=== PATIENT | female | born 1990 | race Caucasian/White ===

== ENCOUNTER 2018-08-24 08:10 | Inpatient (IN) ==
[2018-08-24] MEDS ORDERED: ONDANSETRON 4 MG/2 ML VIAL IV STA (08:57)
[2018-08-24] MEDS ORDERED: SODIUM CHLORIDE 0.9% 1,000 ML IV STA (08:57)
[2018-08-24] MEDS ORDERED: ONDANSETRON 4 MG/2 ML VIAL ONE (09:01)
[2018-08-24 09:23] LABS: Basophils % 0.4 % (0.0-0.8); Hematocrit 28.1 VOL% (35.7-47.0); Hemoglobin 9.2 GM/DL (12.0-16.0); Immature Granulocytes % 1.2 %; Immature Granulocytes Absolute 0.11 #; Lymphocytes # 1.8 10*3/uL (1.4-4.0); Lymphocytes % 19.6 % (21.3-54.2); Mean Corpuscular HGB Conc 32.7 GM/DL (32-36); Mean Corpuscular Volume 82.6 FL (87-102); Mean Platelet Volume 10.9 FL (9.6-12.0); Monocytes % 10.5 % (1.7-12.7); Neutrophils % 68.3 % (38.7-73.9); Platelet Count 250 T/CUMM (130-400); Red Cell Distribution Width 13.1 % (9.3-17.3); White Blood Count 9.1 T/CUMM (4-12)
[2018-08-24 09:42] LABS: Albumin 2.7 G/DL (3.4-5.0); Bilirubin,Total 0.8 MG/DL (0.2-1.0); Calcium 8.5 MG/DL (8.5-10.1); Osmolality,Calculated 296.5 MOS/KG (273-304); Total Protein 6.7 G/DL (6.4-8.3)
[2018-08-24 09:54] LABS: Apearance,Urine Slightly Cloudy (Clear); Urine Color Yellow (Yellow)
[2018-08-24 09:55] LABS: Bilirubin,Urine Negative (Negative); Blood, Urine Trace mg/dL (Negative); Glucose,Urine (UA) 4+ mg/dL (Negative); Ketones,Urine 3+ mg/dL (Negative); Nitrite,Urine Negative (Negative); Protein,Urine 3+ MG/DL; RBC,Urine Rare /HPF (0-4); Urine Urobilinogen < 2.0 EU/DL (0.2-1.0)
[2018-08-24 09:56] LABS: Bacteria,Urine Many /HPF (Few); Squamous Epithelial Cell,Urine Many /HPF (0-10); WBC,Urine TNTC /HPF (0-6)
[2018-08-24] MEDS ORDERED: AMPICILLIN/SULBACTAM 3,000 MG in SODIUM CHLORIDE 0.9% 100 ML IV STA (10:25)
[2018-08-24] MEDS ORDERED: SODIUM CHLORIDE 0.9% 100 ML IV ONE (10:32)
[2018-08-24] MEDS ORDERED: AMPICILLIN/SULBACTAM 3,000 MG VIAL ONE (10:32)
[2018-08-24] MEDS ORDERED: INSULIN LISPRO 100 UNIT/ML ONE (10:53)
[2018-08-24 11:03] LABS: Barbiturates Screen,Urine Negative (Negative); Benzodiazepines Screen,Urine Negative (Negative); Cannabinoid Screen,Urine Positive (Negative); Opiate Screen,Urine Negative (Negative); Phencyclidine Screen,Urine Negative (Negative)
[2018-08-24] MEDS: SODIUM CHLORIDE 0.9% 1,000 ML IV SCH ×3 (12:05→21:54)
[2018-08-24] MEDS: INSULIN LISPRO 100 UNIT/ML SUBCUT SCH ×5 (14:48→22:56)
[2018-08-24] MEDS ORDERED: ACETAMINOPHEN 500 MG TABLET ONE (14:59)
[2018-08-24] MEDS: ONDANSETRON 4 MG/2 ML VIAL IV PRN (15:09)
[2018-08-24] MEDS: ACETAMINOPHEN 500 MG TABLET PO PRN ×2 (15:10→21:52)
[2018-08-24] MEDS ORDERED: DEXTROSE 50% 25 GM/50 ML VIAL IV PRN (16:27)
[2018-08-24] MEDS ORDERED: PROMETHAZINE 25 MG/1 ML VIAL IM PRN (16:40)
[2018-08-24] MEDS: AMPICILLIN/SULBACTAM 3,000 MG in SODIUM CHLORIDE 0.9% 100 ML IV SCH (18:58)
[2018-08-24] MEDS: ONDANSETRON 4 MG/2 ML VIAL IV SCH (20:30)
[2018-08-25] MEDS: ONDANSETRON 4 MG/2 ML VIAL IV SCH ×4 (00:16→23:44)
[2018-08-25] MEDS: INSULIN LISPRO 100 UNIT/ML SUBCUT SCH ×9 (00:47→23:52)
[2018-08-25] MEDS: AMPICILLIN/SULBACTAM 3,000 MG in SODIUM CHLORIDE 0.9% 100 ML IV SCH ×3 (01:58→18:47)
[2018-08-25 06:06] LABS: Basophils % 0.5 % (0.0-0.8); Eosinophils # 0.1 10*3/uL (0.0-0.87); Eosinophils % 1.7 % (0.00-10.9); Hematocrit 24.3 VOL% (35.7-47.0); Hemoglobin 7.7 GM/DL (12.0-16.0); Immature Granulocytes % 0.8 %; Immature Granulocytes Absolute 0.06 #; Lymphocytes # 2.6 10*3/uL (1.4-4.0); Mean Corpuscular HGB Conc 31.7 GM/DL (32-36); Mean Corpuscular Volume 85.3 FL (87-102); Mean Platelet Volume 11.1 FL (9.6-12.0); Monocytes % 11.1 % (1.7-12.7); Neutrophils % 52.9 % (38.7-73.9); Red Blood Count 2.85 MC/CUMM (3.8-5.5); Red Cell Distribution Width 13.6 % (9.3-17.3); White Blood Count 7.8 T/CUMM (4-12)
[2018-08-25 06:09] LABS: Platelet Count 186 T/CUMM (130-400)
[2018-08-25 06:15] LABS: Calcium 7.4 MG/DL (8.5-10.1); Osmolality,Calculated 292.4 MOS/KG (273-304)
[2018-08-25] MEDS: SODIUM CHLORIDE 0.9% 1,000 ML IV SCH ×2 (08:47→18:00)
[2018-08-25] MEDS: ONDANSETRON 4 MG/2 ML VIAL IV PRN (12:29)
[2018-08-25] MEDS: LABETALOL 200 MG TABLET PO SCH (20:55)
[2018-08-26] MEDS: ACETAMINOPHEN 500 MG TABLET PO PRN (00:23)
[2018-08-26] MEDS: AMPICILLIN/SULBACTAM 3,000 MG in SODIUM CHLORIDE 0.9% 100 ML IV SCH (03:38)
[2018-08-26] MEDS: ONDANSETRON 4 MG/2 ML VIAL IV SCH ×2 (03:47→08:08)
[2018-08-26] MEDS: INSULIN LISPRO 100 UNIT/ML SUBCUT SCH ×2 (03:49→07:26)
[2018-08-26] MEDS: SODIUM CHLORIDE 0.9% 1,000 ML IV SCH (06:00)
[2018-08-26 08:15] VITALS: BP 145/88
[2018-08-26] MEDS: LABETALOL 200 MG TABLET PO SCH (08:57)
== END 2018-08-26 12:50 | disposition home or self-care (01) | DRG 832 ==
LOC: EDBD → EDUNIT# → N.ED 08:10 → N.EDINP 10:25 → N.OB 10:59
PROVIDERS: ADMIT Obstetrics & Gynecology; ATTEND Obstetrics & Gynecology

== ENCOUNTER 2018-11-03 10:39 | Inpatient (IN) ==
[2018-11-03] MEDS ORDERED: ONDANSETRON 4 MG/2 ML VIAL IV STA (11:16)
[2018-11-03] MEDS ORDERED: SODIUM CHLORIDE 0.9% 1,000 ML IV STA (11:16)
[2018-11-03 11:44] LABS: Basophils # 0.1 10*3/uL (0.0-0.2); Basophils % 0.9 % (0.0-0.8); Eosinophils % 0.3 % (0.00-10.9); Hematocrit 26.9 VOL% (35.7-47.0); Hemoglobin 8.6 GM/DL (12.0-16.0); Immature Granulocytes % 1.2 %; Immature Granulocytes Absolute 0.09 #; Lymphocytes # 1.3 10*3/uL (1.4-4.0); Lymphocytes % 16.6 % (21.3-54.2); Mean Corpuscular Volume 87.3 FL (87-102); Monocytes % 7.5 % (1.7-12.7); Neutrophils % 73.5 % (38.7-73.9); Platelet Count 226 T/CUMM (130-400); Red Blood Count 3.08 MC/CUMM (3.8-5.5); Red Cell Distribution Width 13.6 % (9.3-17.3); White Blood Count 7.8 T/CUMM (4-12)
[2018-11-03 12:02] LABS: Calcium 8.1 MG/DL (8.5-10.1); Osmolality,Calculated 287.7 MOS/KG (273-304)
[2018-11-03] MEDS ORDERED: INSULIN REGULAR 100 UNIT/ML IV ONE (12:03)
[2018-11-03] MEDS ORDERED: MAGNESIUM HYDROXIDE SUSP 30 ML UDCUP PO PRN (12:05)
[2018-11-03] MEDS ORDERED: ACETAMINOPHEN 325 MG TABLET PO PRN (12:05)
[2018-11-03] MEDS ORDERED: BISACODYL 10 MG SUPP RECTAL PRN (12:05)
[2018-11-03 13:43] LABS: Apearance,Urine Slightly Hazy (Clear); Bilirubin,Urine Negative (Negative); Blood, Urine Small mg/dL (Negative); Glucose,Urine (UA) >=500 mg/dL (Negative); Ketones,Urine 20 mg/dL (Negative); Mucus,Urine Occasional /LPF (Occasional); Nitrite,Urine Negative (Negative); Protein,Urine >=500 MG/DL; RBC,Urine 11 /HPF (0-4); Squamous Epithelial Cell,Urine Occasional /HPF (0-10); Urine Color Yellow (Yellow); Urine Specific Gravity 1.018 (1.001-1.035); Urine Urobilinogen < 2.0 EU/DL (0.2-1.0); WBC,Urine 6 /HPF (0-6)
[2018-11-03] MEDS ORDERED: GLUCAGON 1 MG VIAL IM PRN (14:01)
[2018-11-03] MEDS ORDERED: DEXTROSE 10% 250 ML BAG IV PRN (14:01)
[2018-11-03] MEDS ORDERED: DEXTROSE 50% 25 GM/50 ML VIAL IV PRN (14:07)
[2018-11-03 15:06] LABS: Calcium 8.1 MG/DL (8.5-10.1); Osmolality,Calculated 291.3 MOS/KG (273-304)
[2018-11-03] MEDS ORDERED: ALUMINUM/MAGNES/SIMETH MAX STR 30 ML UDCUP PO PRN (15:08)
[2018-11-03] MEDS: LABETALOL 200 MG TABLET PO SCH ×2 (15:44→21:14)
[2018-11-03] MEDS: PANTOPRAZOLE 40 MG TABLET PO SCH (15:44)
[2018-11-03 16:45] LABS: Barbiturates Screen,Urine Negative (Negative); Benzodiazepines Screen,Urine Negative (Negative); Cannabinoid Screen,Urine Negative (Negative); Opiate Screen,Urine Negative (Negative); Phencyclidine Screen,Urine Negative (Negative)
[2018-11-03] MEDS ORDERED: SCOPOLAMINE 1.5 MG PATCH TRANSDERM ONE (17:20)
[2018-11-03] MEDS: SODIUM CHLORIDE 0.9% 1,000 ML IV SCH (17:30)
[2018-11-03] MEDS: PROMETHAZINE 25 MG/1 ML VIAL IM SCH (18:07)
[2018-11-03] MEDS: INSULIN LISPRO 100 UNIT/ML SUBCUT SCH ×3 (18:41→21:13)
[2018-11-03 19:16] LABS: Osmolality,Calculated 296.7 MOS/KG (273-304)
[2018-11-03] MEDS: INSULIN GLARGINE 100 UNIT/ML SUBCUT SCH (21:12)
[2018-11-03] MEDS: DOCUSATE SODIUM 100 MG CAPSULE PO SCH (21:39)
[2018-11-04] MEDS: PROMETHAZINE 25 MG/1 ML VIAL IM SCH ×4 (00:25→17:30)
[2018-11-04] MEDS: SODIUM CHLORIDE 0.9% 1,000 ML IV SCH ×2 (01:12→09:35)
[2018-11-04 05:02] LABS: Basophils % 0.4 % (0.0-0.8); Eosinophils # 0.1 10*3/uL (0.0-0.87); Eosinophils % 0.9 % (0.00-10.9); Hematocrit 19.2 VOL% (35.7-47.0); Immature Granulocytes Absolute 0.07 #; Lymphocytes # 2.2 10*3/uL (1.4-4.0); Lymphocytes % 31.8 % (21.3-54.2); Mean Corpuscular HGB Conc 31.8 GM/DL (32-36); Mean Corpuscular Volume 88.9 FL (87-102); Mean Platelet Volume 10.5 FL (9.6-12.0); Monocytes % 12.7 % (1.7-12.7); Neutrophils % 53.2 % (38.7-73.9); Platelet Count 174 T/CUMM (130-400); Red Blood Count 2.16 MC/CUMM (3.8-5.5); Red Cell Distribution Width 13.5 % (9.3-17.3); White Blood Count 6.8 T/CUMM (4-12)
[2018-11-04 05:06] LABS: Hemoglobin 6.1 GM/DL (12.0-16.0)
[2018-11-04 05:28] LABS: Osmolality,Calculated 288.8 MOS/KG (273-304)
[2018-11-04] MEDS: INSULIN LISPRO 100 UNIT/ML SUBCUT SCH ×5 (07:30→21:28)
[2018-11-04] MEDS: MULTIVITAMIN (PRENATAL) TABLET PO SCH (09:06)
[2018-11-04] MEDS: DOCUSATE SODIUM 100 MG CAPSULE PO SCH ×2 (09:06→21:17)
[2018-11-04] MEDS: INSULIN GLARGINE 100 UNIT/ML SUBCUT SCH ×2 (09:06→21:27)
[2018-11-04] MEDS: PANTOPRAZOLE 40 MG TABLET PO SCH (09:06)
[2018-11-04] MEDS: LABETALOL 200 MG TABLET PO SCH ×3 (09:07→21:17)
[2018-11-04 11:56] LABS: Hematocrit 20.2 VOL% (35.7-47.0)
[2018-11-04 11:58] LABS: Hemoglobin 6.4 GM/DL (12.0-16.0)
[2018-11-04] MEDS: FERROUS SULFATE 325 MG TABLET PO SCH ×2 (12:12→21:18)
[2018-11-04] MEDS ORDERED: SODIUM CHLORIDE 0.9% 1,000 ML IV PRN (15:00)
[2018-11-04] MEDS ORDERED: PROMETHAZINE 25 MG/1 ML VIAL IM PRN (18:11)
[2018-11-05] MEDS: INSULIN LISPRO 100 UNIT/ML SUBCUT SCH ×7 (01:34→20:46)
[2018-11-05] MEDS: SODIUM CHLORIDE 0.9% 1,000 ML IV SCH ×2 (01:36→15:03)
[2018-11-05 06:16] LABS: Calcium 7.8 MG/DL (8.5-10.1); Osmolality,Calculated 287.7 MOS/KG (273-304)
[2018-11-05] MEDS ORDERED: DEXTROSE 10% 25 GM/250 ML BAG IV PRN (07:20)
[2018-11-05] MEDS ORDERED: GLUCAGON 1 MG VIAL IM PRN (07:20)
[2018-11-05 08:25] LABS: Basophils % 0.6 % (0.0-0.8); Eosinophils # 0.1 10*3/uL (0.0-0.87); Eosinophils % 1.4 % (0.00-10.9); Hematocrit 27.7 VOL% (35.7-47.0); Immature Granulocytes % 1.8 %; Immature Granulocytes Absolute 0.12 #; Lymphocytes # 1.4 10*3/uL (1.4-4.0); Lymphocytes % 21.2 % (21.3-54.2); Mean Corpuscular HGB Conc 32.5 GM/DL (32-36); Mean Corpuscular Volume 89.1 FL (87-102); Mean Platelet Volume 11.1 FL (9.6-12.0); Monocytes % 11.1 % (1.7-12.7); Neutrophils % 63.9 % (38.7-73.9); Platelet Count 199 T/CUMM (130-400); Red Cell Distribution Width 13.7 % (9.3-17.3); White Blood Count 6.7 T/CUMM (4-12)
[2018-11-05 08:35] LABS: Red Blood Count 3.11 MC/CUMM (3.8-5.5)
[2018-11-05] MEDS: MULTIVITAMIN (PRENATAL) TABLET PO SCH (08:50)
[2018-11-05] MEDS: PANTOPRAZOLE 40 MG TABLET PO SCH (08:50)
[2018-11-05] MEDS: DOCUSATE SODIUM 100 MG CAPSULE PO SCH ×2 (08:50→20:35)
[2018-11-05] MEDS: FERROUS SULFATE 325 MG TABLET PO SCH ×2 (08:50→20:35)
[2018-11-05] MEDS: LABETALOL 200 MG TABLET PO SCH ×3 (08:57→20:35)
[2018-11-05 09:42] LABS: Basophils % 0.6 % (0.0-0.8); Eosinophils # 0.1 10*3/uL (0.0-0.87); Eosinophils % 1.3 % (0.00-10.9); Hematocrit 27.5 VOL% (35.7-47.0); Hemoglobin 8.8 GM/DL (12.0-16.0); Immature Granulocytes % 1.4 %; Lymphocytes # 1.6 10*3/uL (1.4-4.0); Lymphocytes % 22.8 % (21.3-54.2); Mean Corpuscular Volume 88.4 FL (87-102); Mean Platelet Volume 10.6 FL (9.6-12.0); Monocytes % 10.6 % (1.7-12.7); Neutrophils % 63.3 % (38.7-73.9); Platelet Count 199 T/CUMM (130-400); Red Blood Count 3.11 MC/CUMM (3.8-5.5); Red Cell Distribution Width 13.6 % (9.3-17.3); White Blood Count 7.1 T/CUMM (4-12)
[2018-11-05] MEDS: INSULIN GLARGINE 100 UNIT/ML SUBCUT SCH (09:51)
[2018-11-06] MEDS: INSULIN GLARGINE 100 UNIT/ML SUBCUT SCH ×2 (00:09→09:20)
[2018-11-06] MEDS: SODIUM CHLORIDE 0.9% 1,000 ML IV SCH (03:56)
[2018-11-06] MEDS: INSULIN LISPRO 100 UNIT/ML SUBCUT SCH ×5 (07:51→20:59)
[2018-11-06] MEDS ORDERED: SCOPOLAMINE 1.5 MG PATCH TRANSDERM ONE (09:00)
[2018-11-06] MEDS: DOCUSATE SODIUM 100 MG CAPSULE PO SCH ×2 (09:19→20:33)
[2018-11-06] MEDS: FERROUS SULFATE 325 MG TABLET PO SCH ×2 (09:19→20:33)
[2018-11-06] MEDS: MULTIVITAMIN (PRENATAL) TABLET PO SCH (09:19)
[2018-11-06] MEDS: PANTOPRAZOLE 40 MG TABLET PO SCH (09:19)
[2018-11-06] MEDS: LABETALOL 200 MG TABLET PO SCH ×3 (09:19→20:33)
[2018-11-06] MEDS: ONDANSETRON 4 MG/2 ML VIAL IV PRN ×2 (10:47→16:31)
[2018-11-06] MEDS ORDERED: SCOPOLAMINE 1.5 MG PATCH TRANSDERM SCH (17:00)
[2018-11-07] MEDS: INSULIN GLARGINE 100 UNIT/ML SUBCUT SCH (00:21)
[2018-11-07 05:15] LABS: Basophils % 0.5 % (0.0-0.8); Eosinophils # 0.2 10*3/uL (0.0-0.87); Eosinophils % 2.2 % (0.00-10.9); Hematocrit 24.6 VOL% (35.7-47.0); Immature Granulocytes % 1.1 %; Immature Granulocytes Absolute 0.08 #; Lymphocytes # 2.3 10*3/uL (1.4-4.0); Lymphocytes % 31.9 % (21.3-54.2); Mean Corpuscular HGB Conc 32.5 GM/DL (32-36); Mean Corpuscular Volume 87.5 FL (87-102); Mean Platelet Volume 10.5 FL (9.6-12.0); Monocytes % 12.1 % (1.7-12.7); Neutrophils % 52.2 % (38.7-73.9); Platelet Count 156 T/CUMM (130-400); Red Blood Count 2.81 MC/CUMM (3.8-5.5); Red Cell Distribution Width 13.4 % (9.3-17.3); White Blood Count 7.3 T/CUMM (4-12)
[2018-11-07 05:34] LABS: Calcium 7.9 MG/DL (8.5-10.1); Osmolality,Calculated 280.4 MOS/KG (273-304)
[2018-11-07] MEDS: MULTIVITAMIN (PRENATAL) TABLET PO SCH (08:46)
[2018-11-07] MEDS: LABETALOL 200 MG TABLET PO SCH (08:46)
[2018-11-07] MEDS: PANTOPRAZOLE 40 MG TABLET PO SCH (08:46)
[2018-11-07] MEDS: DOCUSATE SODIUM 100 MG CAPSULE PO SCH (08:47)
[2018-11-07] MEDS: FERROUS SULFATE 325 MG TABLET PO SCH (08:47)
[2018-11-07] MEDS ORDERED: INSULIN GLARGINE 100 UNIT/ML SUBCUT SCH (09:00)
[2018-11-07 11:45] VITALS: BP 150/98
[2018-11-07] MEDS: INSULIN LISPRO 100 UNIT/ML SUBCUT SCH ×3 (12:08→12:12)
[2018-11-07] MEDS ORDERED: LABETALOL 200 MG TABLET PO SCH ×3 (15:00→21:00)
== END 2018-11-07 14:45 | disposition home or self-care (01) | DRG 832 ==
LOC: N.ED 10:39 → N.EDINP 12:04 → N.OB 12:24
PROVIDERS: ADMIT Obstetrics & Gynecology; ATTEND Obstetrics & Gynecology

== ENCOUNTER 2018-12-30 10:53 | Inpatient (IN) ==
[2018-12-30] MEDS ORDERED: LABETALOL 200 MG TABLET PO ONE (12:14)
[2018-12-30] MEDS ORDERED: LABETALOL 100 MG TABLET ONE ×3 (12:16→20:02)
[2018-12-30] MEDS ORDERED: LABETALOL 200 MG TABLET ONE (12:16)
[2018-12-30 12:41] LABS: Basophils % 0.7 % (0.0-0.8); Eosinophils # 0.1 10*3/uL (0.0-0.87); Eosinophils % 1.2 % (0.00-10.9); Hematocrit 18.9 VOL% (35.7-47.0); Immature Granulocytes Absolute 0.29 #; Lymphocytes # 1.7 10*3/uL (1.4-4.0); Lymphocytes % 29.9 % (21.3-54.2); Mean Corpuscular HGB Conc 32.8 GM/DL (32-36); Mean Corpuscular Volume 87.9 FL (87-102); Mean Platelet Volume 10.9 FL (9.6-12.0); Monocytes % 12.8 % (1.7-12.7); Neutrophils % 50.4 % (38.7-73.9); Platelet Count 191 T/CUMM (130-400); Red Blood Count 2.15 MC/CUMM (3.8-5.5); Red Cell Distribution Width 13.7 % (9.3-17.3); White Blood Count 5.8 T/CUMM (4-12)
[2018-12-30 12:48] LABS: Hemoglobin 6.2 GM/DL (12.0-16.0)
[2018-12-30] MEDS ORDERED: SODIUM CHLORIDE 0.9% 1,000 ML IV PRN ×2 (12:53→12:55)
[2018-12-30 12:59] LABS: Albumin 1.7 G/DL (3.4-5.0); Bilirubin,Direct 0.11 MG/DL (0.0-0.20); Bilirubin,Total 0.4 MG/DL (0.2-1.0); Calcium 8.2 MG/DL (8.5-10.1); Osmolality,Calculated 289.4 MOS/KG (273-304); Total Protein 5.9 G/DL (6.4-8.3)
[2018-12-30 13:04] LABS: INR 0.8; Partial Thromboplastin Time 23.1 SECS (20.8-36.0)
[2018-12-30] MEDS ORDERED: ACETAMINOPHEN 500 MG TABLET PO ONE (14:17)
[2018-12-30] MEDS ORDERED: ACETAMINOPHEN 500 MG TABLET ONE (14:28)
[2018-12-30 16:47] LABS: Barbiturates Screen,Urine Negative (Negative); Benzodiazepines Screen,Urine Negative (Negative); Cannabinoid Screen,Urine Positive (Negative); Opiate Screen,Urine Negative (Negative); Phencyclidine Screen,Urine Negative (Negative)
[2018-12-30] MEDS ORDERED: DEXTROSE 10% 25 GM/250 ML BAG IV PRN (17:05)
[2018-12-30] MEDS ORDERED: GLUCAGON 1 MG VIAL IM PRN (17:05)
[2018-12-30] MEDS ORDERED: diphenhydrAMINE 50 MG/1 ML VIAL IM SCH (18:00)
[2018-12-30] MEDS ORDERED: DEXTROSE 10% 250 ML BAG IV PRN (18:11)
[2018-12-30] MEDS: BETAMETH SODIUM PHOS/ACETATE 30 MG/5 ML VIAL IM SCH (19:12)
[2018-12-30] MEDS: LABETALOL 200 MG TABLET PO SCH (20:03)
[2018-12-30] MEDS ORDERED: MAGNESIUM SULF RIDER 100 ML IV ONE ×2 (20:12→20:14)
[2018-12-30] MEDS ORDERED: MAGNESIUM SULF DRIP 40 GM/1,000 ML ML IV SCH (21:00)
[2018-12-30] MEDS: MAGNESIUM SULF DRIP 40 GM/1,000 ML ML IV SCH (21:15)
[2018-12-30] MEDS: INSULIN REGULAR 100 UNIT/ML SUBCUT SCH (21:40)
[2018-12-30] MEDS ORDERED: LABETALOL 200 MG TABLET PO SCH (22:00)
[2018-12-30] MEDS ORDERED: ONDANSETRON 4 MG/2 ML VIAL IV PRN (22:11)
[2018-12-30] MEDS: LACTATED RINGERS 1,000 ML IV SCH (22:30)
[2018-12-30] MEDS ORDERED: WITCH HAZEL PADS 100/JAR TOP PRN (22:53)
[2018-12-31] MEDS: INSULIN NPH 100 UNIT/ML SUBCUT SCH ×3 (02:33→22:18)
[2018-12-31] MEDS: LABETALOL 200 MG TABLET PO SCH ×3 (03:56→20:38)
[2018-12-31 05:13] LABS: Basophils # 0.1 10*3/uL (0.0-0.2); Basophils % 0.7 % (0.0-0.8); Eosinophils % 0.1 % (0.00-10.9); Hematocrit 28.6 VOL% (35.7-47.0); Hemoglobin 9.5 GM/DL (12.0-16.0); Immature Granulocytes Absolute 0.41 #; Lymphocytes # 1.5 10*3/uL (1.4-4.0); Lymphocytes % 22.3 % (21.3-54.2); Mean Corpuscular HGB Conc 33.2 GM/DL (32-36); Mean Corpuscular Volume 87.7 FL (87-102); Mean Platelet Volume 11.3 FL (9.6-12.0); Monocytes % 3.9 % (1.7-12.7); Platelet Count 179 T/CUMM (130-400); Red Blood Count 3.26 MC/CUMM (3.8-5.5); Red Cell Distribution Width 14.9 % (9.3-17.3); White Blood Count 6.9 T/CUMM (4-12)
[2018-12-31 05:41] LABS: Band Neutrophils 2 % (0-10); Hypochromasia Slight; Lymphocytes 24 % (20-55); Platelet Estimate Adequate; Segmented Neutrophils 68 % (50-85); Total Cells Counted 100
[2018-12-31] MEDS ORDERED: OXYTOCIN/LR 0 UNIT/0 ML BAG IV ONE (06:14)
[2018-12-31 07:29] LABS: Albumin 1.6 G/DL (3.4-5.0); Bilirubin,Total 0.8 MG/DL (0.2-1.0); Calcium 7.9 MG/DL (8.5-10.1); Osmolality,Calculated 277.5 MOS/KG (273-304); Total Protein 5.7 G/DL (6.4-8.3)
[2018-12-31 09:14] LABS: Basophils # 0.1 10*3/uL (0.0-0.2); Basophils % 0.7 % (0.0-0.8); Eosinophils % 0.1 % (0.00-10.9); Hematocrit 29.2 VOL% (35.7-47.0); Hemoglobin 9.5 GM/DL (12.0-16.0); Immature Granulocytes % 5.7 %; Immature Granulocytes Absolute 0.41 #; Lymphocytes # 1.6 10*3/uL (1.4-4.0); Lymphocytes % 21.5 % (21.3-54.2); Mean Corpuscular HGB Conc 32.5 GM/DL (32-36); Mean Platelet Volume 11.2 FL (9.6-12.0); Monocytes % 4.7 % (1.7-12.7); Neutrophils % 67.3 % (38.7-73.9); Platelet Count 172 T/CUMM (130-400); Red Blood Count 3.28 MC/CUMM (3.8-5.5); Red Cell Distribution Width 14.9 % (9.3-17.3); White Blood Count 7.2 T/CUMM (4-12)
[2018-12-31 09:35] LABS: Band Neutrophils 4 % (0-10); Lymphocytes 23 % (20-55); Segmented Neutrophils 66 % (50-85); Total Cells Counted 100
[2018-12-31 09:36] LABS: Platelet Estimate Adequate
[2018-12-31 09:37] LABS: Hypochromasia Slight
[2018-12-31] MEDS: ONDANSETRON 4 MG/2 ML VIAL IV SCH (10:27)
[2018-12-31] MEDS: INSULIN REGULAR 100 UNIT/ML SUBCUT SCH ×3 (11:43→20:20)
[2018-12-31] MEDS ORDERED: PROMETHAZINE 25 MG/1 ML VIAL ONE (12:08)
[2018-12-31] MEDS: PROMETHAZINE 25 MG/1 ML VIAL IM SCH (12:11)
[2018-12-31] MEDS: MAGNESIUM SULF DRIP 40 GM/1,000 ML ML IV SCH (12:25)
[2018-12-31] MEDS: LACTATED RINGERS 1,000 ML IV SCH ×2 (12:27→12:29)
[2018-12-31] MEDS ORDERED: MAGNESIUM SULF DRIP 40 GM/1,000 ML ML IV SCH (12:30)
[2018-12-31 16:37] LABS: Total Protein 24 Hr Ur Result 9800 MG/24HR (0-149.1); Total Volume,Urine 1400 ML (400-2000)
[2018-12-31 16:40] LABS: Creatinine Clearance Urine 30.25 ML/MIN (70-115)
[2018-12-31] MEDS: BETAMETH SODIUM PHOS/ACETATE 30 MG/5 ML VIAL IM SCH (19:29)
[2018-12-31] MEDS ORDERED: LABETALOL 100 MG TABLET ONE (20:11)
[2019-01-01] MEDS ORDERED: LABETALOL 100 MG TABLET ONE ×2 (04:08→19:44)
[2019-01-01] MEDS: LABETALOL 200 MG TABLET PO SCH ×3 (04:12→19:58)
[2019-01-01] MEDS: INSULIN REGULAR 100 UNIT/ML SUBCUT SCH ×4 (04:23→18:14)
[2019-01-01] MEDS: LACTATED RINGERS 1,000 ML IV SCH (05:58)
[2019-01-01 07:43] LABS: Basophils % 0.6 % (0.0-0.8); Hematocrit 28.9 VOL% (35.7-47.0); Hemoglobin 9.8 GM/DL (12.0-16.0); Immature Granulocytes % 5.7 %; Immature Granulocytes Absolute 0.41 #; Lymphocytes % 14.3 % (21.3-54.2); Mean Corpuscular HGB Conc 33.9 GM/DL (32-36); Mean Platelet Volume 10.8 FL (9.6-12.0); Monocytes % 6.7 % (1.7-12.7); Neutrophils % 72.7 % (38.7-73.9); Platelet Count 185 T/CUMM (130-400); Red Blood Count 3.32 MC/CUMM (3.8-5.5); Red Cell Distribution Width 14.6 % (9.3-17.3); White Blood Count 7.2 T/CUMM (4-12)
[2019-01-01 07:59] LABS: INR 0.8; PT Patient Result 8.7 SECS (9.6-12.2); Partial Thromboplastin Time 23.1 SECS (20.8-36.0)
[2019-01-01] MEDS: INSULIN NPH 100 UNIT/ML SUBCUT SCH (07:59)
[2019-01-01 08:03] LABS: Band Neutrophils 1 % (0-10); Lymphocytes 8 % (20-55); Myelocytes 2 %; Promyelocytes 1 %; Segmented Neutrophils 86 % (50-85); Total Cells Counted 100
[2019-01-01 08:04] LABS: Hypochromasia Slight; Microcytosis Slight; Platelet Estimate Normal; Polychromasia Few
[2019-01-01] MEDS ORDERED: CITRIC ACID/SODIUM CITRATE 30 ML UDCUP PO ONE (12:39)
[2019-01-01] MEDS ORDERED: FAMOTIDINE 20 MG/2 ML VIAL IV ONE (12:39)
[2019-01-01] MEDS ORDERED: ceFAZolin 2,000 MG in PREMIX 1 EACH IV ONE (12:39)
[2019-01-01 12:48] LABS: Basophils # 0.1 10*3/uL (0.0-0.2); Basophils % 0.6 % (0.0-0.8); Hemoglobin 9.8 GM/DL (12.0-16.0); Immature Granulocytes % 5.5 %; Immature Granulocytes Absolute 0.47 #; Lymphocytes # 1.4 10*3/uL (1.4-4.0); Mean Corpuscular HGB Conc 33.8 GM/DL (32-36); Mean Corpuscular Volume 87.1 FL (87-102); Mean Platelet Volume 11.4 FL (9.6-12.0); Monocytes % 8.7 % (1.7-12.7); Neutrophils % 69.2 % (38.7-73.9); Platelet Count 192 T/CUMM (130-400); Red Blood Count 3.33 MC/CUMM (3.8-5.5); Red Cell Distribution Width 14.5 % (9.3-17.3); White Blood Count 8.6 T/CUMM (4-12)
[2019-01-01 13:10] LABS: Band Neutrophils 2 % (0-10); Lymphocytes 7 % (20-55); Myelocytes 1 %; Segmented Neutrophils 83 % (50-85); Total Cells Counted 100
[2019-01-01 13:12] LABS: Microcytosis 1+; Ovalocytes Slight; Polychromasia Slight
[2019-01-01 13:13] LABS: Platelet Estimate Normal
[2019-01-01] MEDS ORDERED: HYDROmorphone 2 MG/1 ML VIAL ONE (14:42)
[2019-01-01] MEDS ORDERED: OXYTOCIN/LR 20 UNIT/1,000 ML BAG IV ONE ×3 (15:06→17:31)
[2019-01-01] MEDS ORDERED: OXYTOCIN 10 UNIT/ML VIAL ONE (15:27)
[2019-01-01] MEDS ORDERED: SODIUM CHLORIDE 0.9% 1,000 ML IV PRN (15:28)
[2019-01-01] MEDS ORDERED: KETAMINE 500 MG/10 ML VIAL ONE (16:29)
[2019-01-01] MEDS ORDERED: ONDANSETRON 4 MG/2 ML VIAL ONE (16:29)
[2019-01-01] MEDS ORDERED: fentaNYL 100 MCG/2 ML VIAL ONE (16:29)
[2019-01-01] MEDS ORDERED: MIDAZOLAM 2 MG/2 ML VIAL ONE (16:29)
[2019-01-01] MEDS ORDERED: CALCIUM CHLORIDE 1,000 MG/10 ML VIAL IV ONE (16:29)
[2019-01-01] MEDS ORDERED: LACTATED RINGERS 1,000 ML IV ONE (16:30)
[2019-01-01] MEDS ORDERED: PHENYLEPHRINE 1 MG/10 ML SYRINGE IV ONE (16:30)
[2019-01-01] MEDS ORDERED: BUPIVACAINE SPINAL 0.75% 2 ML AMP SPINAL ONE (16:31)
[2019-01-01] MEDS ORDERED: MORPHINE 10 MG/1 ML VIAL ONE (16:44)
[2019-01-01] MEDS ORDERED: MORPHINE 10 MG/10 ML VIAL ONE (16:44)
[2019-01-01 17:20] LABS: Apearance,Urine Slightly Hazy (Clear); Bilirubin,Urine Negative (Negative); Blood, Urine Moderate mg/dL (Negative); Glucose,Urine (UA) 150 mg/dL (Negative); Hyaline Casts,Urine 69 /LPF (0-3); Ketones,Urine Negative (Negative); Mucus,Urine Occasional /LPF (Occasional); Nitrite,Urine Negative (Negative); Protein,Urine >=500 MG/DL; RBC,Urine 8 /HPF (0-4); Squamous Epithelial Cell,Urine Occasional /HPF (0-10); Urine Color Yellow (Yellow); Urine Specific Gravity 1.016 (1.001-1.035); Urine Urobilinogen < 2.0 EU/DL (0.2-1.0); WBC,Urine 3 /HPF (0-6)
[2019-01-01] MEDS: ONDANSETRON 4 MG/2 ML VIAL IV SCH ×2 (17:25→21:53)
[2019-01-01] MEDS ORDERED: HYDROmorphone 2 MG/1 ML VIAL IV ONE (19:24)
[2019-01-01] MEDS ORDERED: KETOROLAC 30 MG/1 ML VIAL IV PRN (19:26)
[2019-01-01] MEDS ORDERED: HYDROmorphone 2 MG/1 ML VIAL IV PRN (20:14)
[2019-01-01 21:55] LABS: Basophils % 0.4 % (0.0-0.8); Eosinophils % 0.1 % (0.00-10.9); Hematocrit 29.3 VOL% (35.7-47.0); Hemoglobin 9.9 GM/DL (12.0-16.0); Immature Granulocytes % 2.7 %; Immature Granulocytes Absolute 0.28 #; Lymphocytes # 1.5 10*3/uL (1.4-4.0); Lymphocytes % 14.7 % (21.3-54.2); Mean Corpuscular HGB Conc 33.8 GM/DL (32-36); Mean Corpuscular Volume 87.5 FL (87-102); Mean Platelet Volume 10.9 FL (9.6-12.0); Monocytes % 15.3 % (1.7-12.7); Neutrophils % 66.8 % (38.7-73.9); Platelet Count 168 T/CUMM (130-400); Red Blood Count 3.35 MC/CUMM (3.8-5.5); White Blood Count 10.2 T/CUMM (4-12)
[2019-01-01] MEDS: PROMETHAZINE 25 MG/1 ML VIAL IM SCH (22:43)
[2019-01-01] MEDS ORDERED: SODIUM CHLORIDE 0.9% 100 ML IV ONE (23:36)
[2019-01-02] MEDS: ceFAZolin 1,000 MG in SYRINGE 1 EACH IV SCH ×2 (00:06→07:20)
[2019-01-02] MEDS ORDERED: diphenhydrAMINE 50 MG/1 ML VIAL IV ONE (01:00)
[2019-01-02] MEDS: KETOROLAC 30 MG/1 ML VIAL IV SCH ×3 (02:04→14:34)
[2019-01-02] MEDS: LACTATED RINGERS 1,000 ML IV SCH (03:13)
[2019-01-02] MEDS ORDERED: LABETALOL 100 MG TABLET ONE (03:58)
[2019-01-02] MEDS: LABETALOL 200 MG TABLET PO SCH ×3 (04:02→19:56)
[2019-01-02] MEDS ORDERED: HydrOXYzine PAMOATE 25 MG CAPSULE PO ONE (04:04)
[2019-01-02] MEDS: INSULIN REGULAR 100 UNIT/ML SUBCUT SCH ×3 (08:44→17:50)
[2019-01-02] MEDS: INSULIN NPH 100 UNIT/ML SUBCUT SCH ×2 (08:45→17:48)
[2019-01-02] MEDS ORDERED: MAGNESIUM HYDROXIDE SUSP 30 ML UDCUP PO PRN (21:00)
[2019-01-02] MEDS: FERROUS SULFATE 325 MG TABLET PO SCH (22:01)
[2019-01-02] MEDS: DOCUSATE SODIUM 100 MG CAPSULE PO SCH (22:01)
[2019-01-02] MEDS ORDERED: GLUCAGON 1 MG VIAL IM PRN (23:30)
[2019-01-02] MEDS ORDERED: DEXTROSE 50% 25 GM/50 ML VIAL IV PRN (23:30)
[2019-01-03] MEDS ORDERED: GLUCAGON 1 MG VIAL IM PRN (00:13)
[2019-01-03] MEDS ORDERED: DEXTROSE 50% 25 GM/50 ML VIAL IV PRN (00:13)
[2019-01-03] MEDS: INSULIN REGULAR 100 UNIT/ML SUBCUT SCH ×5 (00:24→17:51)
[2019-01-03] MEDS: IBUPROFEN 800 MG TABLET PO PRN ×2 (02:33→12:03)
[2019-01-03] MEDS: LABETALOL 200 MG TABLET PO SCH ×3 (04:26→20:59)
[2019-01-03 05:09] LABS: Basophils % 0.6 % (0.0-0.8); Eosinophils # 0.1 10*3/uL (0.0-0.87); Eosinophils % 0.9 % (0.00-10.9); Hematocrit 22.4 VOL% (35.7-47.0); Hemoglobin 7.4 GM/DL (12.0-16.0); Immature Granulocytes % 2.5 %; Immature Granulocytes Absolute 0.17 #; Lymphocytes # 1.7 10*3/uL (1.4-4.0); Lymphocytes % 25.6 % (21.3-54.2); Mean Corpuscular Volume 87.5 FL (87-102); Mean Platelet Volume 10.9 FL (9.6-12.0); Monocytes % 15.9 % (1.7-12.7); Neutrophils % 54.5 % (38.7-73.9); Platelet Count 140 T/CUMM (130-400); Red Blood Count 2.56 MC/CUMM (3.8-5.5); Red Cell Distribution Width 14.1 % (9.3-17.3); White Blood Count 6.8 T/CUMM (4-12)
[2019-01-03 05:36] LABS: Atypical Lymphocytes Few; Band Neutrophils 2 % (0-10); Eosinophils 1 % (0-10); Lymphocytes 29 % (20-55); Metamyelocytes 1 %; Microcytosis 1+; Myelocytes 1 %; Ovalocytes Slight; Segmented Neutrophils 53 % (50-85); Total Cells Counted 100
[2019-01-03 05:37] LABS: Platelet Estimate Adequate
[2019-01-03] MEDS ORDERED: FUROSEMIDE 20 MG TABLET PO ONE (08:31)
[2019-01-03] MEDS ORDERED: diphenhydrAMINE CAP 50 MG CAPSULE PO ONE (08:33)
[2019-01-03] MEDS: INSULIN NPH 100 UNIT/ML SUBCUT SCH ×2 (08:40→17:53)
[2019-01-03] MEDS: FERROUS SULFATE 325 MG TABLET PO SCH ×3 (08:43→20:58)
[2019-01-03] MEDS: MULTIVITAMIN (PRENATAL) TABLET PO SCH (08:43)
[2019-01-03] MEDS: DOCUSATE SODIUM 100 MG CAPSULE PO SCH ×2 (08:43→20:58)
[2019-01-03] MEDS: SODIUM CHLORIDE 0.9% 1,000 ML IV PRN (09:54)
[2019-01-03 17:35] LABS: Hematocrit 28.1 VOL% (35.7-47.0); Hemoglobin 9.3 GM/DL (12.0-16.0)
[2019-01-03] MEDS ORDERED: RHO(D) IMMUNE GLOBULIN 300 MCG SYRINGE IM ONE (18:15)
[2019-01-04] MEDS: INSULIN REGULAR 100 UNIT/ML SUBCUT SCH ×7 (00:14→18:09)
[2019-01-04] MEDS: LABETALOL 200 MG TABLET PO SCH ×3 (05:37→19:55)
[2019-01-04] MEDS: IBUPROFEN 800 MG TABLET PO PRN (05:50)
[2019-01-04] MEDS: INSULIN NPH 100 UNIT/ML SUBCUT SCH ×2 (08:32→17:25)
[2019-01-04] MEDS: FERROUS SULFATE 325 MG TABLET PO SCH ×4 (09:57→23:44)
[2019-01-04] MEDS: MULTIVITAMIN (PRENATAL) TABLET PO SCH (09:57)
[2019-01-04] MEDS: DOCUSATE SODIUM 100 MG CAPSULE PO SCH ×3 (09:58→23:43)
[2019-01-04] MEDS: FUROSEMIDE 20 MG/2 ML VIAL IV ONE ×2 (12:00→16:37)
[2019-01-04] MEDS: SODIUM CHLORIDE 0.9% 1,000 ML IV PRN (12:02)
[2019-01-04] MEDS ORDERED: ALUMINUM/MAGNES/SIMETH MAX STR 30 ML UDCUP PO PRN (15:01)
[2019-01-04] MEDS ORDERED: LABETALOL 200 MG TABLET PO ONE (22:13)
[2019-01-05] MEDS: INSULIN REGULAR 100 UNIT/ML SUBCUT SCH ×4 (00:49→12:51)
[2019-01-05] MEDS ORDERED: hydrALAZINE 20 MG/1 ML VIAL IV ONE (01:13)
[2019-01-05] MEDS: LABETALOL 200 MG TABLET PO SCH (04:48)
[2019-01-05] MEDS: IBUPROFEN 800 MG TABLET PO PRN (06:13)
[2019-01-05] MEDS ORDERED: LABETALOL 200 MG TABLET PO SCH (09:00)
[2019-01-05] MEDS: INSULIN NPH 100 UNIT/ML SUBCUT SCH (09:05)
[2019-01-05] MEDS: DOCUSATE SODIUM 100 MG CAPSULE PO SCH (10:19)
[2019-01-05] MEDS: MULTIVITAMIN (PRENATAL) TABLET PO SCH (10:19)
[2019-01-05] MEDS: FERROUS SULFATE 325 MG TABLET PO SCH ×2 (10:19→16:02)
[2019-01-05 12:30] VITALS: BP 168/87
[2019-01-05] MEDS ORDERED: DIPH/TET/ACEL PERT BOOSTER VACCINE 0.5 ML VIAL IM ONE (15:13)
== END 2019-01-05 17:05 | disposition home or self-care (01) | DRG 785 ==
LOC: N.LD 10:53 → N.LDOUT 10:53 → N.LD 10:54 → N.OB 01-02 16:49
PROVIDERS: ADMIT Obstetrics & Gynecology; ATTEND Obstetrics & Gynecology

== ENCOUNTER 2019-03-07 12:37 | Inpatient (IN) ==
[2019-03-07 13:36] LABS: Basophils % 0.6 % (0.0-0.8); Eosinophils # 0.1 10*3/uL (0.0-0.87); Eosinophils % 2.6 % (0.00-10.9); Immature Granulocytes % 0.6 %; Immature Granulocytes Absolute 0.03 #; Lymphocytes # 1.5 10*3/uL (1.4-4.0); Lymphocytes % 29.5 % (21.3-54.2); Mean Corpuscular Volume 90.3 FL (87-102); Mean Platelet Volume 10.2 FL (9.6-12.0); Neutrophils % 56.7 % (38.7-73.9); Platelet Count 165 T/CUMM (130-400); Red Blood Count 1.86 MC/CUMM (3.8-5.5); Red Cell Distribution Width 14.4 % (9.3-17.3); White Blood Count 5.1 T/CUMM (4-12)
[2019-03-07 13:39] LABS: Hematocrit 16.8 VOL% (35.7-47.0); Hemoglobin 5.2 GM/DL (12.0-16.0)
[2019-03-07 14:00] LABS: Albumin 1.9 G/DL (3.4-5.0); Bilirubin,Total 0.6 MG/DL (0.2-1.0); Calcium 8.2 MG/DL (8.5-10.1); Total Protein 5.7 G/DL (6.4-8.3)
[2019-03-07] MEDS ORDERED: DEXTROSE 50% 25 GM/50 ML SYRINGE IV ONE (14:28)
[2019-03-07] MEDS ORDERED: SODIUM CHLORIDE 0.9% 500 ML IV STA (15:01)
[2019-03-07 15:30] LABS: Apearance,Urine CLOUDY (Clear); Bacteria,Urine Occasional /HPF (Few); Bilirubin,Urine Negative (Negative); Blood, Urine Moderate mg/dL (Negative); Glucose,Urine (UA) 150 mg/dL (Negative); Granular Casts,Urine 3 /LPF (0-1); Hyaline Casts,Urine 19 /LPF (0-3); Ketones,Urine Negative (Negative); Mucus,Urine Occasional /LPF (Occasional); Nitrite,Urine Negative (Negative); Protein,Urine >=500 MG/DL; RBC,Urine 5 /HPF (0-4); Squamous Epithelial Cell,Urine Few /HPF (0-10); Transitional Epi Cells,Urine Occasional /HPF (<1); Urine Color Yellow (Yellow); Urine Specific Gravity 1.015 (1.001-1.035); Urine Urobilinogen < 2.0 EU/DL (0.2-1.0); WBC,Urine 19 /HPF (0-6)
[2019-03-07] MEDS ORDERED: GLUCAGON 1 MG VIAL IM PRN (15:57)
[2019-03-07] MEDS ORDERED: DEXTROSE 10% 25 GM/250 ML BAG IV PRN (15:57)
[2019-03-07] MEDS ORDERED: SODIUM CHLORIDE 0.9% 1,000 ML IV PRN (15:58)
[2019-03-07 16:25] LABS: % Iron Saturation 22.2 % (18-50)
[2019-03-07 16:33] LABS: Folate 12.9 NG/ML (5.4-24.0)
[2019-03-07] MEDS ORDERED: ONDANSETRON 4 MG/2 ML VIAL ONE (19:29)
[2019-03-07] MEDS ORDERED: FUROSEMIDE 40 MG/4 ML VIAL IV ONE ×2 (19:33→20:34)
[2019-03-07] MEDS: ONDANSETRON 4 MG/2 ML VIAL IV PRN (19:58)
[2019-03-07] MEDS: PANTOPRAZOLE 40 MG VIAL IV SCH (20:08)
[2019-03-07] MEDS: INSULIN LISPRO 100 UNIT/ML SUBCUT SCH ×2 (20:08→20:37)
[2019-03-07] MEDS: LABETALOL 200 MG TABLET PO SCH (21:05)
[2019-03-08] MEDS ORDERED: INSULIN LISPRO 100 UNIT/ML SUBCUT ONE (01:20)
[2019-03-08 03:45] LABS: Basophils % 0.7 % (0.0-0.8); Eosinophils # 0.1 10*3/uL (0.0-0.87); Eosinophils % 1.9 % (0.00-10.9); Hematocrit 20.1 VOL% (35.7-47.0); Immature Granulocytes % 0.9 %; Immature Granulocytes Absolute 0.05 #; Lymphocytes # 1.5 10*3/uL (1.4-4.0); Lymphocytes % 25.7 % (21.3-54.2); Mean Corpuscular HGB Conc 30.8 GM/DL (32-36); Mean Platelet Volume 10.6 FL (9.6-12.0); Monocytes % 9.4 % (1.7-12.7); Neutrophils % 61.4 % (38.7-73.9); Platelet Count 143 T/CUMM (130-400); Red Blood Count 2.21 MC/CUMM (3.8-5.5); Red Cell Distribution Width 14.4 % (9.3-17.3); White Blood Count 5.8 T/CUMM (4-12)
[2019-03-08 03:47] LABS: Albumin 1.6 G/DL (3.4-5.0); Bilirubin,Total 0.6 MG/DL (0.2-1.0); Calcium 7.4 MG/DL (8.5-10.1); Osmolality,Calculated 296.4 MOS/KG (273-304); Risk Ratio 7.32; Thyroid Stimulating Hormone 3.13 uIU/ml (0.358-3.74); Total Protein 4.8 G/DL (6.4-8.3); VLDL CHOLESTEROL 56.4 MG/DL
[2019-03-08 04:04] LABS: Hemoglobin 6.2 GM/DL (12.0-16.0)
[2019-03-08] MEDS ORDERED: SODIUM POLYSTYRENE SULFATE 15 GM/60 ML BOTTLE PO STA (04:29)
[2019-03-08] MEDS ORDERED: SODIUM CHLORIDE 0.9% 1,000 ML IV PRN ×2 (04:53→12:49)
[2019-03-08] MEDS ORDERED: CALCIUM GLUCONATE 1,000 MG in SODIUM CHLORIDE 0.9% 100 ML IV ONE (05:00)
[2019-03-08] MEDS ORDERED: SODIUM BICARB INJ 50 MEQ, DEXTROSE 50% 25 GM, INSULIN REGULAR 10 UNIT in SODIUM CHLORID... IV SCH (05:00)
[2019-03-08] MEDS: LABETALOL 200 MG TABLET PO SCH ×3 (08:27→20:40)
[2019-03-08 08:31] LABS: ABG Base Excess -6.4 MMOL/L (-2.5-2.5); ABG HCO3 19.1 MMOL/L (20-26); ABG Oxygen Saturation 97.3 % (95-100); ABG PCO2 29.8 MM HG (35-48); ABG PH 7.387 (7.35-7.45); ABG PO2 79.6 MM HG (80-95); Allen Test Positive; Pt O2 Delivery Device Room Air
[2019-03-08] MEDS ORDERED: CYANOCOBALAMIN 1000 MCG/1 ML VIAL SUBCUT SCH (09:00)
[2019-03-08] MEDS ORDERED: NORETHINDRONE E ESTRADIOL IRON PO SCH (09:00)
[2019-03-08] MEDS ORDERED: MAGNESIUM SULF RIDER 2 GM in PREMIX 1 EACH IV ONE (09:00)
[2019-03-08 09:16] LABS: INR 0.9; PT Patient Result 9.5 SECS (9.6-12.2); Partial Thromboplastin Time 24.6 SECS (20.8-36.0)
[2019-03-08] MEDS: hydrALAZINE 20 MG/1 ML VIAL IV PRN ×2 (09:20→16:14)
[2019-03-08] MEDS: PANTOPRAZOLE 40 MG VIAL IV SCH (09:20)
[2019-03-08] MEDS: ESCITALOPRAM 10 MG TABLET PO SCH (09:20)
[2019-03-08] MEDS: NICOTINE 14 MG/24 HR PATCH TRANSDERM SCH (09:33)
[2019-03-08] MEDS ORDERED: GLUCAGON 1 MG VIAL IM PRN (11:24)
[2019-03-08] MEDS ORDERED: DEXTROSE 10% 250 ML BAG IV PRN (11:24)
[2019-03-08 11:29] LABS: Calcium 7.9 MG/DL (8.5-10.1)
[2019-03-08 12:07] LABS: Barbiturates Screen,Urine Negative (Negative); Benzodiazepines Screen,Urine Negative (Negative); Cannabinoid Screen,Urine Negative (Negative); Opiate Screen,Urine Negative (Negative); Phencyclidine Screen,Urine Negative (Negative)
[2019-03-08] MEDS: INSULIN LISPRO 100 UNIT/ML SUBCUT SCH ×3 (13:26→20:40)
[2019-03-08] MEDS: ONDANSETRON 4 MG/2 ML VIAL IV PRN (13:57)
[2019-03-08] MEDS: ACETAMINOPHEN 325 MG TABLET PO PRN (19:53)
[2019-03-08] MEDS: hydrALAZINE 25 MG TABLET PO SCH (20:41)
[2019-03-08 22:28] LABS: Hematocrit 27.3 VOL% (35.7-47.0); Hemoglobin 8.7 GM/DL (12.0-16.0)
[2019-03-09] MEDS: hydrALAZINE 20 MG/1 ML VIAL IV PRN (00:39)
[2019-03-09] MEDS: ACETAMINOPHEN 325 MG TABLET PO PRN ×2 (04:20→20:17)
[2019-03-09] MEDS ORDERED: LABETALOL 20 MG/4 ML SYRINGE IV PRN (04:38)
[2019-03-09 04:40] LABS: Basophils % 0.5 % (0.0-0.8); Eosinophils # 0.2 10*3/uL (0.0-0.87); Eosinophils % 2.9 % (0.00-10.9); Hematocrit 27.3 VOL% (35.7-47.0); Hemoglobin 8.6 GM/DL (12.0-16.0); Immature Granulocytes % 0.7 %; Immature Granulocytes Absolute 0.04 #; Lymphocytes # 1.3 10*3/uL (1.4-4.0); Lymphocytes % 23.8 % (21.3-54.2); Mean Corpuscular HGB Conc 31.5 GM/DL (32-36); Mean Corpuscular Volume 88.9 FL (87-102); Mean Platelet Volume 10.9 FL (9.6-12.0); Monocytes % 12.3 % (1.7-12.7); Neutrophils % 59.8 % (38.7-73.9); Platelet Count 139 T/CUMM (130-400); Red Blood Count 3.07 MC/CUMM (3.8-5.5); Red Cell Distribution Width 14.3 % (9.3-17.3); White Blood Count 5.5 T/CUMM (4-12)
[2019-03-09 04:58] LABS: Calcium 7.7 MG/DL (8.5-10.1); Osmolality,Calculated 294.7 MOS/KG (273-304)
[2019-03-09 05:00] LABS: Albumin 1.6 G/DL (3.4-5.0); Bilirubin,Total 1.4 MG/DL (0.2-1.0); Calcium 7.9 MG/DL (8.5-10.1); Osmolality,Calculated 300.3 MOS/KG (273-304)
[2019-03-09] MEDS: hydrALAZINE 25 MG TABLET PO SCH ×3 (08:08→20:51)
[2019-03-09] MEDS: LABETALOL 200 MG TABLET PO SCH ×3 (08:08→21:09)
[2019-03-09] MEDS: NICOTINE 14 MG/24 HR PATCH TRANSDERM SCH (08:08)
[2019-03-09] MEDS: ESCITALOPRAM 10 MG TABLET PO SCH (08:08)
[2019-03-09] MEDS: CYANOCOBALAMIN 1000 MCG/1 ML VIAL SUBCUT SCH (08:09)
[2019-03-09] MEDS: INSULIN LISPRO 100 UNIT/ML SUBCUT SCH ×4 (08:11→20:59)
[2019-03-09] MEDS: INSULIN NPH 100 UNIT/ML SUBCUT SCH ×2 (11:31→21:07)
[2019-03-09] MEDS ORDERED: NON-FORMULARY MEDICATION PO SCH (13:00)
[2019-03-09] MEDS ORDERED: NITROGLYCERIN SL 0.4 MG TABLET SL ONE ×2 (20:35→20:43)
[2019-03-09] MEDS ORDERED: ALUM/MAG/SIMETH/LIDO VISC 1:1 30 ML BOTTLE PO ONE (20:41)
[2019-03-09] MEDS: oxyCODONE/ACETAMINOPHEN 5-325 MG TABLET PO PRN (21:12)
[2019-03-09 21:47] LABS: Calcium 7.6 MG/DL (8.5-10.1)
[2019-03-10 04:41] LABS: Basophils % 0.8 % (0.0-0.8); Eosinophils # 0.2 10*3/uL (0.0-0.87); Eosinophils % 4.6 % (0.00-10.9); Hematocrit 25.2 VOL% (35.7-47.0); Hemoglobin 8.1 GM/DL (12.0-16.0); Immature Granulocytes Absolute 0.05 #; Lymphocytes # 1.4 10*3/uL (1.4-4.0); Lymphocytes % 30.1 % (21.3-54.2); Mean Corpuscular HGB Conc 32.1 GM/DL (32-36); Mean Corpuscular Volume 88.1 FL (87-102); Mean Platelet Volume 10.8 FL (9.6-12.0); Monocytes % 12.6 % (1.7-12.7); Neutrophils % 50.9 % (38.7-73.9); Platelet Count 125 T/CUMM (130-400); Red Blood Count 2.86 MC/CUMM (3.8-5.5); Red Cell Distribution Width 14.1 % (9.3-17.3); White Blood Count 4.8 T/CUMM (4-12)
[2019-03-10 05:02] LABS: Albumin 1.7 G/DL (3.4-5.0); Bilirubin,Total 0.9 MG/DL (0.2-1.0); Calcium 7.8 MG/DL (8.5-10.1); Osmolality,Calculated 295.4 MOS/KG (273-304)
[2019-03-10] MEDS: ESCITALOPRAM 10 MG TABLET PO SCH (09:46)
[2019-03-10] MEDS: hydrALAZINE 25 MG TABLET PO SCH ×3 (09:46→21:41)
[2019-03-10] MEDS: LABETALOL 200 MG TABLET PO SCH ×3 (09:46→21:41)
[2019-03-10] MEDS: NICOTINE 14 MG/24 HR PATCH TRANSDERM SCH (09:48)
[2019-03-10] MEDS: LO LOESTRIN FE PO SCH (09:50)
[2019-03-10] MEDS: INSULIN LISPRO 100 UNIT/ML SUBCUT SCH ×4 (09:51→21:43)
[2019-03-10] MEDS: INSULIN NPH 100 UNIT/ML SUBCUT SCH ×2 (09:51→21:43)
[2019-03-10] MEDS: CYANOCOBALAMIN 1000 MCG/1 ML VIAL SUBCUT SCH (09:52)
[2019-03-10] MEDS ORDERED: FUROSEMIDE 40 MG/4 ML VIAL IV ONE (11:19)
[2019-03-10] MEDS: oxyCODONE/ACETAMINOPHEN 5-325 MG TABLET PO PRN (18:12)
[2019-03-11] MEDS: ONDANSETRON 4 MG/2 ML VIAL IV PRN ×2 (00:21→09:01)
[2019-03-11 05:31] LABS: Calcium 7.8 MG/DL (8.5-10.1); Osmolality,Calculated 303.4 MOS/KG (273-304)
[2019-03-11] MEDS: INSULIN NPH 100 UNIT/ML SUBCUT SCH ×2 (08:39→21:02)
[2019-03-11] MEDS: INSULIN LISPRO 100 UNIT/ML SUBCUT SCH ×4 (08:39→20:16)
[2019-03-11] MEDS: CYANOCOBALAMIN 1000 MCG/1 ML VIAL SUBCUT SCH (08:41)
[2019-03-11] MEDS: LABETALOL 200 MG TABLET PO SCH ×3 (08:43→21:01)
[2019-03-11] MEDS: ESCITALOPRAM 10 MG TABLET PO SCH (08:44)
[2019-03-11] MEDS: NICOTINE 14 MG/24 HR PATCH TRANSDERM SCH (08:46)
[2019-03-11] MEDS: oxyCODONE/ACETAMINOPHEN 5-325 MG TABLET PO PRN ×3 (08:59→21:00)
[2019-03-11] MEDS ORDERED: SODIUM POLYSTYRENE SULFATE 15 GM/60 ML BOTTLE PO ONE (09:00)
[2019-03-11] MEDS: hydrALAZINE 25 MG TABLET PO SCH ×3 (09:01→21:01)
[2019-03-11] MEDS: LO LOESTRIN FE PO SCH (09:09)
[2019-03-11] MEDS: hydrALAZINE 20 MG/1 ML VIAL IV PRN (16:49)
[2019-03-12 05:58] LABS: Basophils # 0.1 10*3/uL (0.0-0.2); Basophils % 0.8 % (0.0-0.8); Eosinophils # 0.3 10*3/uL (0.0-0.87); Eosinophils % 4.5 % (0.00-10.9); Hematocrit 27.2 VOL% (35.7-47.0); Hemoglobin 8.5 GM/DL (12.0-16.0); Immature Granulocytes % 0.7 %; Immature Granulocytes Absolute 0.04 #; Lymphocytes # 0.9 10*3/uL (1.4-4.0); Mean Corpuscular HGB Conc 31.3 GM/DL (32-36); Mean Corpuscular Volume 89.2 FL (87-102); Mean Platelet Volume 11.3 FL (9.6-12.0); Monocytes % 11.4 % (1.7-12.7); Neutrophils % 67.6 % (38.7-73.9); Platelet Count 126 T/CUMM (130-400); Red Blood Count 3.05 MC/CUMM (3.8-5.5); Red Cell Distribution Width 14.3 % (9.3-17.3)
[2019-03-12 06:19] LABS: Calcium 7.7 MG/DL (8.5-10.1); Osmolality,Calculated 297.4 MOS/KG (273-304)
[2019-03-12 06:36] LABS: Risk Ratio 7.33
[2019-03-12] MEDS: INSULIN LISPRO 100 UNIT/ML SUBCUT SCH ×4 (08:42→21:14)
[2019-03-12] MEDS: NICOTINE 14 MG/24 HR PATCH TRANSDERM SCH (08:42)
[2019-03-12] MEDS: CYANOCOBALAMIN 1000 MCG/1 ML VIAL SUBCUT SCH (08:43)
[2019-03-12] MEDS: INSULIN NPH 100 UNIT/ML SUBCUT SCH ×2 (08:43→21:14)
[2019-03-12] MEDS: LABETALOL 200 MG TABLET PO SCH ×3 (08:43→20:57)
[2019-03-12] MEDS: ESCITALOPRAM 10 MG TABLET PO SCH (08:44)
[2019-03-12] MEDS: hydrALAZINE 25 MG TABLET PO SCH ×3 (08:44→20:58)
[2019-03-12] MEDS: LO LOESTRIN FE PO SCH (08:44)
[2019-03-12] MEDS: oxyCODONE/ACETAMINOPHEN 5-325 MG TABLET PO PRN ×4 (08:53→23:25)
[2019-03-12] MEDS: TRANEXAMIC ACID TAB 650 MG TABLET PO SCH (12:06)
[2019-03-12] MEDS: OMEGA 3 ACID ETHYL ESTERS 1 GM CAPSULE PO SCH (20:57)
[2019-03-12] MEDS: ATORVASTATIN 20 MG TABLET PO SCH (20:58)
[2019-03-12 23:43] LABS: Microalbum/Creat Ratio Random 6339.9 RATIO (0-30)
[2019-03-13] MEDS: oxyCODONE/ACETAMINOPHEN 5-325 MG TABLET PO PRN ×3 (03:46→20:36)
[2019-03-13 05:38] LABS: Basophils % 0.8 % (0.0-0.8); Eosinophils # 0.2 10*3/uL (0.0-0.87); Eosinophils % 5.6 % (0.00-10.9); Hematocrit 23.6 VOL% (35.7-47.0); Hemoglobin 7.5 GM/DL (12.0-16.0); Immature Granulocytes % 0.5 %; Immature Granulocytes Absolute 0.02 #; Lymphocytes # 1.1 10*3/uL (1.4-4.0); Lymphocytes % 28.8 % (21.3-54.2); Mean Corpuscular HGB Conc 31.8 GM/DL (32-36); Mean Corpuscular Volume 90.1 FL (87-102); Mean Platelet Volume 11.8 FL (9.6-12.0); Monocytes % 11.4 % (1.7-12.7); Neutrophils % 52.9 % (38.7-73.9); Platelet Count 123 T/CUMM (130-400); Red Blood Count 2.62 MC/CUMM (3.8-5.5); Red Cell Distribution Width 14.4 % (9.3-17.3)
[2019-03-13 06:00] LABS: Calcium 7.7 MG/DL (8.5-10.1); Osmolality,Calculated 291.7 MOS/KG (273-304)
[2019-03-13 06:51] LABS: HIV Antigen/Antibody Result Nonreactive (Nonreactive); Hepatitis B Core IgM Quant < 0.05 Index; Hepatitis B Surface Ag Quant < 0.10 Index; Hepatitis B Surface Ag Result Negative (Negative); Hepatitis C Virus Ab Quant 0.14 Index; Hepatitis C Virus Ab Result Negative (Negative)
[2019-03-13] MEDS: INSULIN LISPRO 100 UNIT/ML SUBCUT SCH ×4 (08:52→20:39)
[2019-03-13] MEDS: LABETALOL 200 MG TABLET PO SCH ×3 (08:57→20:37)
[2019-03-13] MEDS: ESCITALOPRAM 10 MG TABLET PO SCH (08:57)
[2019-03-13] MEDS: CYANOCOBALAMIN 1000 MCG/1 ML VIAL SUBCUT SCH (08:57)
[2019-03-13] MEDS: INSULIN NPH 100 UNIT/ML SUBCUT SCH ×2 (08:57→20:37)
[2019-03-13] MEDS: NICOTINE 14 MG/24 HR PATCH TRANSDERM SCH (08:58)
[2019-03-13] MEDS: OMEGA 3 ACID ETHYL ESTERS 1 GM CAPSULE PO SCH ×2 (08:58→20:37)
[2019-03-13] MEDS: hydrALAZINE 25 MG TABLET PO SCH ×3 (08:58→20:37)
[2019-03-13] MEDS: LO LOESTRIN FE PO SCH (08:58)
[2019-03-13] MEDS: TRANEXAMIC ACID TAB 650 MG TABLET PO SCH (08:58)
[2019-03-13] MEDS ORDERED: SODIUM CHLORIDE 0.9% 1,000 ML IV PRN ×3 (10:10→13:23)
[2019-03-13] MEDS: ONDANSETRON 4 MG/2 ML VIAL IV PRN (17:21)
[2019-03-13 17:55] LABS: Hematocrit 30.3 VOL% (35.7-47.0); Hemoglobin 9.6 GM/DL (12.0-16.0)
[2019-03-13] MEDS ORDERED: ALUMINUM/MAGNES/SIMETH MAX STR 30 ML UDCUP PO PRN (19:48)
[2019-03-13] MEDS: ALUMINUM/MAGNES/SIMETH MAX STR 30 ML UDCUP PO PRN (20:36)
[2019-03-13] MEDS: ATORVASTATIN 20 MG TABLET PO SCH (20:38)
[2019-03-14] MEDS: oxyCODONE/ACETAMINOPHEN 5-325 MG TABLET PO PRN ×4 (00:29→21:35)
[2019-03-14] MEDS: ALUMINUM/MAGNES/SIMETH MAX STR 30 ML UDCUP PO PRN (04:41)
[2019-03-14 08:18] LABS: Calcium 7.8 MG/DL (8.5-10.1); Osmolality,Calculated 296.3 MOS/KG (273-304)
[2019-03-14] MEDS: INSULIN LISPRO 100 UNIT/ML SUBCUT SCH ×4 (08:38→21:33)
[2019-03-14] MEDS: hydrALAZINE 25 MG TABLET PO SCH ×3 (10:35→21:35)
[2019-03-14] MEDS: LABETALOL 200 MG TABLET PO SCH ×3 (10:35→22:33)
[2019-03-14] MEDS: CYANOCOBALAMIN 1000 MCG/1 ML VIAL SUBCUT SCH (10:38)
[2019-03-14] MEDS: INSULIN NPH 100 UNIT/ML SUBCUT SCH ×2 (10:49→21:36)
[2019-03-14] MEDS: OMEGA 3 ACID ETHYL ESTERS 1 GM CAPSULE PO SCH ×2 (10:50→21:34)
[2019-03-14] MEDS: NICOTINE 14 MG/24 HR PATCH TRANSDERM SCH (10:50)
[2019-03-14] MEDS: TRANEXAMIC ACID TAB 650 MG TABLET PO SCH (10:50)
[2019-03-14] MEDS: ESCITALOPRAM 10 MG TABLET PO SCH (10:50)
[2019-03-14] MEDS: LO LOESTRIN FE PO SCH (10:50)
[2019-03-14] MEDS ORDERED: ceFAZolin 1,000 MG VIAL ONE (12:11)
[2019-03-14] MEDS ORDERED: miSOPROStoL 200 MCG TABLET ONE (12:15)
[2019-03-14] MEDS ORDERED: ACETAMINOPHEN 1,000 MG/100 ML VIAL IV ONE (12:30)
[2019-03-14] MEDS ORDERED: SEVOFLURANE 1 UNIT/15 MINUTE INH ONE (12:42)
[2019-03-14] MEDS ORDERED: MIDAZOLAM 2 MG/2 ML VIAL ONE (12:42)
[2019-03-14] MEDS ORDERED: PHENYLEPHRINE 1 MG/10 ML SYRINGE IV ONE (12:42)
[2019-03-14] MEDS ORDERED: ONDANSETRON 4 MG/2 ML VIAL ONE (12:42)
[2019-03-14] MEDS ORDERED: LIDOCAINE 2% 5 ML VIAL ONE (12:42)
[2019-03-14] MEDS ORDERED: PROPOFOL 200 MG/20 ML VIAL IV ONE (12:42)
[2019-03-14] MEDS ORDERED: fentaNYL 100 MCG/2 ML VIAL ONE (12:42)
[2019-03-14] MEDS ORDERED: SODIUM POLYSTYRENE SULFATE 15 GM/60 ML BOTTLE PO STA (15:47)
[2019-03-14] MEDS: ATORVASTATIN 20 MG TABLET PO SCH (21:35)
[2019-03-15] MEDS: hydrALAZINE 20 MG/1 ML VIAL IV PRN (01:18)
[2019-03-15] MEDS: oxyCODONE/ACETAMINOPHEN 5-325 MG TABLET PO PRN ×4 (01:52→21:42)
[2019-03-15 02:15] LABS: Amorphous Crystals,Urine Occasional /HPF (Few); Apearance,Urine CLOUDY (Clear); Bilirubin,Urine Negative (Negative); Blood, Urine Moderate mg/dL (Negative); Glucose,Urine (UA) 150 mg/dL (Negative); Hyaline Casts,Urine 8 /LPF (0-3); Ketones,Urine 5 mg/dL (Negative); Mucus,Urine Occasional /LPF (Occasional); Nitrite,Urine Negative (Negative); Protein,Urine >=500 MG/DL; RBC,Urine 158 /HPF (0-4); Squamous Epithelial Cell,Urine Occasional /HPF (0-10); Urine Color Yellow (Yellow); Urine Specific Gravity 1.017 (1.001-1.035); Urine Urobilinogen < 2.0 EU/DL (0.2-1.0); WBC,Urine 17 /HPF (0-6)
[2019-03-15 06:15] LABS: Basophils % 0.7 % (0.0-0.8); Eosinophils # 0.2 10*3/uL (0.0-0.87); Eosinophils % 3.9 % (0.00-10.9); Hematocrit 29.5 VOL% (35.7-47.0); Hemoglobin 9.3 GM/DL (12.0-16.0); Immature Granulocytes % 1.7 %; Immature Granulocytes Absolute 0.09 #; Lymphocytes # 1.4 10*3/uL (1.4-4.0); Lymphocytes % 25.8 % (21.3-54.2); Mean Corpuscular HGB Conc 31.5 GM/DL (32-36); Mean Corpuscular Volume 87.5 FL (87-102); Mean Platelet Volume 11.5 FL (9.6-12.0); Monocytes % 12.2 % (1.7-12.7); Neutrophils % 55.7 % (38.7-73.9); Platelet Count 151 T/CUMM (130-400); Red Blood Count 3.37 MC/CUMM (3.8-5.5); Red Cell Distribution Width 14.8 % (9.3-17.3); White Blood Count 5.3 T/CUMM (4-12)
[2019-03-15 06:55] LABS: Calcium 7.6 MG/DL (8.5-10.1); Osmolality,Calculated 297.7 MOS/KG (273-304)
[2019-03-15] MEDS: hydrALAZINE 25 MG TABLET PO SCH ×3 (08:51→21:26)
[2019-03-15] MEDS: ESCITALOPRAM 10 MG TABLET PO SCH (08:51)
[2019-03-15] MEDS: LABETALOL 200 MG TABLET PO SCH ×3 (08:51→21:26)
[2019-03-15] MEDS: OMEGA 3 ACID ETHYL ESTERS 1 GM CAPSULE PO SCH ×2 (08:51→21:42)
[2019-03-15] MEDS: INSULIN NPH 100 UNIT/ML SUBCUT SCH ×2 (08:52→21:26)
[2019-03-15] MEDS: NICOTINE 14 MG/24 HR PATCH TRANSDERM SCH (08:53)
[2019-03-15] MEDS: LO LOESTRIN FE PO SCH (08:54)
[2019-03-15] MEDS: TRANEXAMIC ACID TAB 650 MG TABLET PO SCH (09:00)
[2019-03-15] MEDS ORDERED: METOCLOPRAMIDE 10 MG/2 ML VIAL IV PRN (09:52)
[2019-03-15] MEDS: INSULIN LISPRO 100 UNIT/ML SUBCUT SCH ×4 (10:24→21:27)
[2019-03-15] MEDS: CYANOCOBALAMIN 1000 MCG/1 ML VIAL SUBCUT SCH (10:25)
[2019-03-15 13:50] LABS: Myeloperoxidase Antibody < 0.2 U
[2019-03-15] MEDS: ATORVASTATIN 20 MG TABLET PO SCH (21:26)
[2019-03-16] MEDS: oxyCODONE/ACETAMINOPHEN 5-325 MG TABLET PO PRN ×5 (02:07→23:08)
[2019-03-16 04:49] LABS: Basophils # 0.1 10*3/uL (0.0-0.2); Basophils % 0.9 % (0.0-0.8); Eosinophils # 0.2 10*3/uL (0.0-0.87); Eosinophils % 4.3 % (0.00-10.9); Hematocrit 28.7 VOL% (35.7-47.0); Hemoglobin 9.2 GM/DL (12.0-16.0); Immature Granulocytes % 1.1 %; Immature Granulocytes Absolute 0.06 #; Lymphocytes # 1.4 10*3/uL (1.4-4.0); Lymphocytes % 26.4 % (21.3-54.2); Mean Corpuscular HGB Conc 32.1 GM/DL (32-36); Mean Platelet Volume 10.5 FL (9.6-12.0); Monocytes % 12.1 % (1.7-12.7); Neutrophils % 55.2 % (38.7-73.9); Platelet Count 166 T/CUMM (130-400); Red Blood Count 3.26 MC/CUMM (3.8-5.5); Red Cell Distribution Width 14.8 % (9.3-17.3); White Blood Count 5.4 T/CUMM (4-12)
[2019-03-16 04:59] LABS: Calcium 7.9 MG/DL (8.5-10.1); Osmolality,Calculated 304.8 MOS/KG (273-304)
[2019-03-16] MEDS: INSULIN LISPRO 100 UNIT/ML SUBCUT SCH ×4 (07:32→21:46)
[2019-03-16] MEDS: LABETALOL 200 MG TABLET PO SCH ×3 (08:26→21:44)
[2019-03-16] MEDS: CYANOCOBALAMIN 1000 MCG/1 ML VIAL SUBCUT SCH (08:26)
[2019-03-16] MEDS: OMEGA 3 ACID ETHYL ESTERS 1 GM CAPSULE PO SCH ×2 (08:26→21:45)
[2019-03-16] MEDS: ESCITALOPRAM 10 MG TABLET PO SCH (08:26)
[2019-03-16] MEDS: hydrALAZINE 25 MG TABLET PO SCH ×3 (08:26→21:45)
[2019-03-16] MEDS: INSULIN NPH 100 UNIT/ML SUBCUT SCH ×2 (08:27→21:45)
[2019-03-16] MEDS: LO LOESTRIN FE PO SCH (08:30)
[2019-03-16] MEDS: NICOTINE 14 MG/24 HR PATCH TRANSDERM SCH (08:30)
[2019-03-16] MEDS: TRANEXAMIC ACID TAB 650 MG TABLET PO SCH (08:30)
[2019-03-16] MEDS ORDERED: DIAZEPAM 5 MG TABLET PO ONE (09:00)
[2019-03-16 12:45] LABS: DRVVT Screen Ratio 1.31 ratio (<1.20)
[2019-03-16] MEDS: ATORVASTATIN 20 MG TABLET PO SCH (21:51)
[2019-03-17 04:23] LABS: Basophils # 0.1 10*3/uL (0.0-0.2); Basophils % 0.9 % (0.0-0.8); Eosinophils # 0.2 10*3/uL (0.0-0.87); Eosinophils % 4.1 % (0.00-10.9); Hematocrit 27.9 VOL% (35.7-47.0); Hemoglobin 8.7 GM/DL (12.0-16.0); Immature Granulocytes % 1.1 %; Immature Granulocytes Absolute 0.06 #; Lymphocytes # 1.5 10*3/uL (1.4-4.0); Lymphocytes % 26.9 % (21.3-54.2); Mean Corpuscular HGB Conc 31.2 GM/DL (32-36); Mean Corpuscular Volume 88.9 FL (87-102); Mean Platelet Volume 10.1 FL (9.6-12.0); Monocytes % 12.9 % (1.7-12.7); Neutrophils % 54.1 % (38.7-73.9); Platelet Count 168 T/CUMM (130-400); Red Blood Count 3.14 MC/CUMM (3.8-5.5); Red Cell Distribution Width 14.9 % (9.3-17.3); White Blood Count 5.4 T/CUMM (4-12)
[2019-03-17] MEDS: oxyCODONE/ACETAMINOPHEN 5-325 MG TABLET PO PRN (04:39)
[2019-03-17 04:42] LABS: Calcium 7.7 MG/DL (8.5-10.1); Osmolality,Calculated 301.8 MOS/KG (273-304)
[2019-03-17] MEDS: INSULIN LISPRO 100 UNIT/ML SUBCUT SCH ×4 (07:54→21:43)
[2019-03-17] MEDS: OMEGA 3 ACID ETHYL ESTERS 1 GM CAPSULE PO SCH ×2 (09:13→21:42)
[2019-03-17] MEDS: NICOTINE 14 MG/24 HR PATCH TRANSDERM SCH (09:13)
[2019-03-17] MEDS: LABETALOL 200 MG TABLET PO SCH ×3 (09:13→21:43)
[2019-03-17] MEDS: hydrALAZINE 25 MG TABLET PO SCH ×3 (09:13→21:42)
[2019-03-17] MEDS: ESCITALOPRAM 10 MG TABLET PO SCH (09:13)
[2019-03-17] MEDS: INSULIN NPH 100 UNIT/ML SUBCUT SCH (09:14)
[2019-03-17] MEDS ORDERED: INSULIN NPH 100 UNIT/ML SUBCUT SCH (09:14)
[2019-03-17] MEDS: LO LOESTRIN FE PO SCH (09:14)
[2019-03-17] MEDS: TRANEXAMIC ACID TAB 650 MG TABLET PO SCH (09:15)
[2019-03-17] MEDS: CYANOCOBALAMIN 1000 MCG/1 ML VIAL SUBCUT SCH (09:16)
[2019-03-17] MEDS ORDERED: SODIUM POLYSTYRENE SULFATE 15 GM/60 ML BOTTLE PO ONE (11:26)
[2019-03-17] MEDS: SODIUM BICARBONATE 650 MG TABLET PO SCH ×2 (14:14→21:43)
[2019-03-17] MEDS: ATORVASTATIN 20 MG TABLET PO SCH (21:43)
[2019-03-18] MEDS: oxyCODONE/ACETAMINOPHEN 5-325 MG TABLET PO PRN (01:13)
[2019-03-18 05:21] LABS: Basophils # 0.1 10*3/uL (0.0-0.2); Basophils % 0.9 % (0.0-0.8); Eosinophils # 0.2 10*3/uL (0.0-0.87); Eosinophils % 3.1 % (0.00-10.9); Immature Granulocytes Absolute 0.06 #; Lymphocytes # 1.3 10*3/uL (1.4-4.0); Mean Corpuscular Volume 90.1 FL (87-102); Mean Platelet Volume 11.1 FL (9.6-12.0); Monocytes % 10.1 % (1.7-12.7); Neutrophils % 61.9 % (38.7-73.9); Platelet Count 176 T/CUMM (130-400); Red Blood Count 3.22 MC/CUMM (3.8-5.5); Red Cell Distribution Width 14.6 % (9.3-17.3); White Blood Count 5.8 T/CUMM (4-12)
[2019-03-18 06:18] LABS: Calcium 7.7 MG/DL (8.5-10.1); Osmolality,Calculated 311.7 MOS/KG (273-304)
[2019-03-18] MEDS: INSULIN LISPRO 100 UNIT/ML SUBCUT SCH ×4 (07:39→20:10)
[2019-03-18] MEDS: TRANEXAMIC ACID TAB 650 MG TABLET PO SCH (10:21)
[2019-03-18] MEDS: ESCITALOPRAM 10 MG TABLET PO SCH (10:22)
[2019-03-18] MEDS: LABETALOL 200 MG TABLET PO SCH ×3 (10:22→21:16)
[2019-03-18] MEDS: OMEGA 3 ACID ETHYL ESTERS 1 GM CAPSULE PO SCH ×2 (10:23→21:16)
[2019-03-18] MEDS: SODIUM BICARBONATE 650 MG TABLET PO SCH ×2 (10:23→21:16)
[2019-03-18] MEDS: LO LOESTRIN FE PO SCH (10:30)
[2019-03-18] MEDS: NICOTINE 14 MG/24 HR PATCH TRANSDERM SCH (10:30)
[2019-03-18] MEDS: hydrALAZINE 25 MG TABLET PO SCH ×3 (10:30→21:15)
[2019-03-18] MEDS: CYANOCOBALAMIN 1000 MCG/1 ML VIAL SUBCUT SCH (10:31)
[2019-03-18] MEDS ORDERED: SODIUM POLYSTYRENE SULFATE 15 GM/60 ML BOTTLE PO ONE (10:46)
[2019-03-18] MEDS: INSULIN NPH 100 UNIT/ML SUBCUT SCH ×2 (12:57→17:03)
[2019-03-18] MEDS: ATORVASTATIN 20 MG TABLET PO SCH (21:18)
[2019-03-18] MEDS: SODIUM POLYSTYRENE SULFATE 15 GM/60 ML BOTTLE PO SCH ×2 (21:18→23:40)
[2019-03-19] MEDS: SODIUM POLYSTYRENE SULFATE 15 GM/60 ML BOTTLE PO SCH ×3 (04:45→20:21)
[2019-03-19] MEDS: hydrALAZINE 20 MG/1 ML VIAL IV PRN (04:46)
[2019-03-19 05:32] LABS: Basophils # 0.1 10*3/uL (0.0-0.2); Eosinophils # 0.2 10*3/uL (0.0-0.87); Eosinophils % 3.6 % (0.00-10.9); Hematocrit 27.9 VOL% (35.7-47.0); Hemoglobin 8.9 GM/DL (12.0-16.0); Immature Granulocytes % 0.7 %; Immature Granulocytes Absolute 0.04 #; Lymphocytes # 1.3 10*3/uL (1.4-4.0); Lymphocytes % 21.8 % (21.3-54.2); Mean Corpuscular HGB Conc 31.9 GM/DL (32-36); Mean Corpuscular Volume 87.5 FL (87-102); Mean Platelet Volume 11.9 FL (9.6-12.0); Monocytes % 10.5 % (1.7-12.7); Neutrophils % 62.4 % (38.7-73.9); Platelet Count 156 T/CUMM (130-400); Red Blood Count 3.19 MC/CUMM (3.8-5.5); Red Cell Distribution Width 14.6 % (9.3-17.3); White Blood Count 5.9 T/CUMM (4-12)
[2019-03-19 05:34] LABS: Osmolality,Calculated 299.5 MOS/KG (273-304)
[2019-03-19] MEDS ORDERED: SODIUM POLYSTYRENE SULFATE 15 GM/60 ML BOTTLE PO ONE (09:19)
[2019-03-19] MEDS: oxyCODONE/ACETAMINOPHEN 5-325 MG TABLET PO PRN (09:59)
[2019-03-19] MEDS: SODIUM BICARBONATE 650 MG TABLET PO SCH ×2 (10:02→20:18)
[2019-03-19] MEDS: INSULIN LISPRO 100 UNIT/ML SUBCUT SCH ×4 (10:02→20:16)
[2019-03-19] MEDS: INSULIN NPH 100 UNIT/ML SUBCUT SCH ×2 (10:02→17:10)
[2019-03-19] MEDS: NICOTINE 14 MG/24 HR PATCH TRANSDERM SCH (10:03)
[2019-03-19] MEDS: hydrALAZINE 25 MG TABLET PO SCH ×3 (10:03→20:19)
[2019-03-19] MEDS: LABETALOL 200 MG TABLET PO SCH ×3 (10:03→20:19)
[2019-03-19] MEDS: OMEGA 3 ACID ETHYL ESTERS 1 GM CAPSULE PO SCH ×2 (10:03→20:18)
[2019-03-19] MEDS: ESCITALOPRAM 10 MG TABLET PO SCH (10:03)
[2019-03-19] MEDS: CYANOCOBALAMIN 1000 MCG/1 ML VIAL SUBCUT SCH (10:04)
[2019-03-19] MEDS: LO LOESTRIN FE PO SCH (10:14)
[2019-03-19] MEDS: TRANEXAMIC ACID TAB 650 MG TABLET PO SCH (10:14)
[2019-03-19 14:39] LABS: CKMB % 3.9 %; Troponin I < 0.015 NG/ML (0.00-0.045)
[2019-03-19] MEDS: FUROSEMIDE 20 MG TABLET PO SCH (15:40)
[2019-03-19] MEDS: ATORVASTATIN 20 MG TABLET PO SCH (20:18)
[2019-03-20] MEDS: ONDANSETRON 4 MG/2 ML VIAL IV PRN ×2 (00:58→10:58)
[2019-03-20 05:47] LABS: Basophils % 0.6 % (0.0-0.8); Eosinophils # 0.2 10*3/uL (0.0-0.87); Eosinophils % 4.2 % (0.00-10.9); Hematocrit 25.9 VOL% (35.7-47.0); Hemoglobin 8.2 GM/DL (12.0-16.0); Immature Granulocytes Absolute 0.05 #; Lymphocytes # 1.3 10*3/uL (1.4-4.0); Lymphocytes % 24.6 % (21.3-54.2); Mean Corpuscular HGB Conc 31.7 GM/DL (32-36); Mean Corpuscular Volume 87.5 FL (87-102); Monocytes % 10.9 % (1.7-12.7); Neutrophils % 58.7 % (38.7-73.9); Platelet Count 203 T/CUMM (130-400); Red Blood Count 2.96 MC/CUMM (3.8-5.5); Red Cell Distribution Width 14.7 % (9.3-17.3); White Blood Count 5.2 T/CUMM (4-12)
[2019-03-20] MEDS: SODIUM POLYSTYRENE SULFATE 15 GM/60 ML BOTTLE PO SCH ×2 (05:47→13:19)
[2019-03-20 06:09] LABS: CKMB % 3.6 %; Troponin I 0.023 NG/ML (0.00-0.045)
[2019-03-20 06:25] LABS: Calcium 7.8 MG/DL (8.5-10.1); Osmolality,Calculated 303.7 MOS/KG (273-304)
[2019-03-20] MEDS ORDERED: FUROSEMIDE 40 MG TABLET ONE (08:44)
[2019-03-20] MEDS ORDERED: metOLazone 5 MG TABLET PO SCH (09:00)
[2019-03-20] MEDS: OMEGA 3 ACID ETHYL ESTERS 1 GM CAPSULE PO SCH (09:10)
[2019-03-20] MEDS: INSULIN LISPRO 100 UNIT/ML SUBCUT SCH (09:10)
[2019-03-20] MEDS: SODIUM BICARBONATE 650 MG TABLET PO SCH (09:10)
[2019-03-20] MEDS: INSULIN NPH 100 UNIT/ML SUBCUT SCH (09:11)
[2019-03-20] MEDS: TRANEXAMIC ACID TAB 650 MG TABLET PO SCH (09:11)
[2019-03-20] MEDS: ACETAMINOPHEN 325 MG TABLET PO PRN (09:12)
[2019-03-20] MEDS: NICOTINE 14 MG/24 HR PATCH TRANSDERM SCH (09:12)
[2019-03-20] MEDS: FUROSEMIDE 20 MG TABLET PO SCH (09:13)
[2019-03-20] MEDS: CYANOCOBALAMIN 1000 MCG/1 ML VIAL SUBCUT SCH (09:13)
[2019-03-20] MEDS: hydrALAZINE 25 MG TABLET PO SCH (09:13)
[2019-03-20] MEDS: ESCITALOPRAM 10 MG TABLET PO SCH (09:13)
[2019-03-20] MEDS: LO LOESTRIN FE PO SCH (09:15)
[2019-03-20] MEDS: LABETALOL 200 MG TABLET PO SCH ×2 (10:17→13:19)
[2019-03-20 14:25] VITALS: BP 152/97
[2019-03-31 13:55] LABS: DRVVT Confirmation 1.11 ratio (<1.20)
[2019-03-31 13:57] LABS: Thrombin Time (Bovine), P 23.1 sec
== END 2019-03-20 14:24 | disposition home or self-care (01) | DRG 769 ==
LOC: N.ED 12:37 → N.EDINP 15:56 → SUATTDRO 15:56 → N.EDINP 17:37 → N.OB 17:53 → N.CC 20:17 → N.3E 03-09 15:24
PROVIDERS: ADMIT Internal Medicine; ATTEND Internal Medicine

== ENCOUNTER 2019-03-30 12:34 | Inpatient (IN) ==
[2019-03-30] MEDS ORDERED: DEXTROSE 50% 25 GM/50 ML VIAL IV PRN (15:53)
[2019-03-30] MEDS ORDERED: ZALEPLON 5 MG CAPSULE PO PRN (15:53)
[2019-03-30] MEDS ORDERED: ACETAMINOPHEN 325 MG TABLET PO PRN (15:53)
[2019-03-30] MEDS ORDERED: GLUCAGON 1 MG VIAL IM PRN (15:53)
[2019-03-30] MEDS ORDERED: FUROSEMIDE 40 MG TABLET PO SCH (16:00)
[2019-03-30] MEDS ORDERED: INSULIN NPH 100 UNIT/ML SUBCUT PRN (16:00)
[2019-03-30] MEDS ORDERED: SCOPOLAMINE 1.5 MG PATCH TRANSDERM ONE (16:17)
[2019-03-30] MEDS: oxyCODONE/ACETAMINOPHEN 5-325 MG TABLET PO PRN (16:46)
[2019-03-30] MEDS: INSULIN REGULAR 100 UNIT/ML SUBCUT SCH ×2 (16:48→21:22)
[2019-03-30] MEDS: ONDANSETRON 4 MG/2 ML VIAL IV PRN (16:58)
[2019-03-30 17:30] LABS: Basophils # 0.1 10*3/uL (0.0-0.2); Eosinophils # 0.1 10*3/uL (0.0-0.87); Eosinophils % 1.2 % (0.00-10.9); Hematocrit 30.1 VOL% (35.7-47.0); Immature Granulocytes % 4.4 %; Immature Granulocytes Absolute 0.25 #; Lymphocytes # 0.9 10*3/uL (1.4-4.0); Lymphocytes % 15.9 % (21.3-54.2); Mean Corpuscular HGB Conc 29.9 GM/DL (32-36); Mean Corpuscular Volume 89.9 FL (87-102); Mean Platelet Volume 11.5 FL (9.6-12.0); Monocytes % 5.9 % (1.7-12.7); Neutrophils % 71.6 % (38.7-73.9); Platelet Count 226 T/CUMM (130-400); Red Blood Count 3.35 MC/CUMM (3.8-5.5); Red Cell Distribution Width 13.9 % (9.3-17.3); White Blood Count 5.7 T/CUMM (4-12)
[2019-03-30 17:56] LABS: Albumin 2.2 G/DL (3.4-5.0); Calcium 8.7 MG/DL (8.5-10.1); Osmolality,Calculated 316.7 MOS/KG (273-304); Total Protein 6.3 G/DL (6.4-8.3)
[2019-03-30] MEDS ORDERED: SODIUM POLYSTYRENE SULFATE 15 GM/60 ML BOTTLE PO ONE (18:10)
[2019-03-30 18:45] LABS: Hepatitis B Core IgM Quant < 0.05 Index; Hepatitis B Surface Ag Quant < 0.10 Index; Hepatitis B Surface Ag Result Negative (Negative); Hepatitis C Virus Ab Result Negative (Negative)
[2019-03-30] MEDS ORDERED: ATORVASTATIN 20 MG TABLET PO SCH (21:00)
[2019-03-30] MEDS: ATORVASTATIN 40 MG TABLET PO SCH (21:11)
[2019-03-30] MEDS: LABETALOL 200 MG TABLET PO SCH (21:11)
[2019-03-30] MEDS: hydrALAZINE 25 MG TABLET PO SCH (21:11)
[2019-03-30] MEDS: OMEGA 3 ACID ETHYL ESTERS 1 GM CAPSULE PO SCH (21:12)
[2019-03-30] MEDS: INSULIN GLARGINE 100 UNIT/ML SUBCUT SCH (21:22)
[2019-03-30] MEDS: SODIUM BICARBONATE 650 MG TABLET PO SCH (22:16)
[2019-03-30] MEDS: DOCUSATE SODIUM 100 MG CAPSULE PO SCH (22:19)
[2019-03-30] MEDS: FUROSEMIDE 40 MG/4 ML VIAL IV SCH (22:37)
[2019-03-31] MEDS: oxyCODONE/ACETAMINOPHEN 5-325 MG TABLET PO PRN ×3 (00:30→21:17)
[2019-03-31 04:57] LABS: Basophils # 0.1 10*3/uL (0.0-0.2); Basophils % 1.1 % (0.0-0.8); Eosinophils # 0.1 10*3/uL (0.0-0.87); Eosinophils % 2.5 % (0.00-10.9); Hematocrit 22.6 VOL% (35.7-47.0); Immature Granulocytes % 1.1 %; Immature Granulocytes Absolute 0.06 #; Lymphocytes # 1.7 10*3/uL (1.4-4.0); Lymphocytes % 29.8 % (21.3-54.2); Mean Corpuscular HGB Conc 31.9 GM/DL (32-36); Mean Corpuscular Volume 85.9 FL (87-102); Mean Platelet Volume 11.2 FL (9.6-12.0); Monocytes % 14.1 % (1.7-12.7); Neutrophils % 51.4 % (38.7-73.9); Platelet Count 197 T/CUMM (130-400); Red Cell Distribution Width 13.9 % (9.3-17.3); White Blood Count 5.7 T/CUMM (4-12)
[2019-03-31 05:09] LABS: Hemoglobin 7.2 GM/DL (12.0-16.0); Red Blood Count 2.63 MC/CUMM (3.8-5.5)
[2019-03-31] MEDS: FUROSEMIDE 40 MG/4 ML VIAL IV SCH ×3 (05:15→21:19)
[2019-03-31 05:43] LABS: Albumin 1.7 G/DL (3.4-5.0); Osmolality,Calculated 301.4 MOS/KG (273-304); Thyroid Stimulating Hormone 1.04 uIU/ml (0.358-3.74); Total Protein 4.9 G/DL (6.4-8.3)
[2019-03-31] MEDS ORDERED: SODIUM CHLORIDE 0.9% 1,000 ML IV PRN (07:05)
[2019-03-31] MEDS ORDERED: DEXTROSE 10% 250 ML IV ONE (07:22)
[2019-03-31] MEDS: DEXTROSE 10% 250 ML IV PRN (07:31)
[2019-03-31] MEDS ORDERED: HYDROmorphone 2 MG/1 ML VIAL IV ONE (07:34)
[2019-03-31 08:18] LABS: Hematocrit 23.9 VOL% (35.7-47.0); Hemoglobin 7.7 GM/DL (12.0-16.0)
[2019-03-31] MEDS: hydrALAZINE 25 MG TABLET PO SCH ×3 (08:42→21:19)
[2019-03-31] MEDS: metOLazone 5 MG TABLET PO SCH (08:56)
[2019-03-31] MEDS: SODIUM BICARBONATE 650 MG TABLET PO SCH ×2 (08:56→21:19)
[2019-03-31] MEDS: LABETALOL 200 MG TABLET PO SCH ×3 (08:56→21:19)
[2019-03-31] MEDS ORDERED: NORETHINDRONE E ESTRADIOL IRON PO SCH (09:00)
[2019-03-31] MEDS: INSULIN REGULAR 100 UNIT/ML SUBCUT SCH ×2 (09:07→14:19)
[2019-03-31] MEDS: INSULIN GLARGINE 100 UNIT/ML SUBCUT SCH (09:08)
[2019-03-31] MEDS: ESCITALOPRAM 10 MG TABLET PO SCH (11:14)
[2019-03-31] MEDS: DOCUSATE SODIUM 100 MG CAPSULE PO SCH ×2 (11:14→23:50)
[2019-03-31] MEDS: OMEGA 3 ACID ETHYL ESTERS 1 GM CAPSULE PO SCH ×2 (11:14→21:19)
[2019-03-31] MEDS: TRANEXAMIC ACID TAB 650 MG TABLET PO SCH (11:15)
[2019-03-31] MEDS: PANTOPRAZOLE 40 MG TABLET PO SCH (11:15)
[2019-03-31] MEDS ORDERED: HEPARIN 5,000 UNIT/1 ML VIAL ONE (11:35)
[2019-03-31] MEDS ORDERED: BUPIVACAINE MPF 0.25% 30 ML VIAL ONE (11:35)
[2019-03-31] MEDS ORDERED: LIDOCAINE 1% 20 ML VIAL ONE (11:36)
[2019-03-31] MEDS ORDERED: ceFAZolin 1,000 MG in SYRINGE 1 EACH IV ONE (12:00)
[2019-03-31] MEDS ORDERED: LIDOCAINE 2% 5 ML VIAL ONE (13:29)
[2019-03-31] MEDS ORDERED: MIDAZOLAM 2 MG/2 ML VIAL ONE (13:29)
[2019-03-31] MEDS ORDERED: PROPOFOL 200 MG/20 ML VIAL IV ONE (13:29)
[2019-03-31] MEDS ORDERED: fentaNYL 100 MCG/2 ML VIAL ONE (13:30)
[2019-03-31] MEDS ORDERED: ONDANSETRON 4 MG/2 ML VIAL ONE ×2 (13:30→13:37)
[2019-03-31] MEDS ORDERED: HYDROmorphone 2 MG/1 ML VIAL ONE (13:37)
[2019-03-31] MEDS ORDERED: diphenhydrAMINE 50 MG/1 ML VIAL IV PRN (13:38)
[2019-03-31] MEDS ORDERED: PROMETHAZINE INJ 25 MG in SODIUM CHLORIDE 0.9% 50 ML IV PRN (13:38)
[2019-03-31] MEDS ORDERED: ONDANSETRON 4 MG/2 ML VIAL IV PRN (13:38)
[2019-03-31] MEDS: HYDROmorphone 2 MG/1 ML VIAL IV PRN ×4 (13:40→13:55)
[2019-03-31] MEDS ORDERED: HEPARIN 10,000 UNIT/10 ML VIAL IV SCH (15:30)
[2019-03-31] MEDS: INSULIN LISPRO 100 UNIT/ML SUBCUT SCH ×2 (17:14→23:50)
[2019-03-31 18:16] LABS: Hematocrit 30.8 VOL% (35.7-47.0)
[2019-03-31 18:17] LABS: Hemoglobin 10.2 GM/DL (12.0-16.0)
[2019-03-31] MEDS ORDERED: INSULIN GLARGINE 100 UNIT/ML SUBCUT SCH (21:00)
[2019-03-31] MEDS: ATORVASTATIN 40 MG TABLET PO SCH (21:18)
[2019-04-01] MEDS: oxyCODONE/ACETAMINOPHEN 5-325 MG TABLET PO PRN ×3 (03:59→18:09)
[2019-04-01] MEDS: ONDANSETRON 4 MG/2 ML VIAL IV PRN ×3 (04:42→18:10)
[2019-04-01] MEDS: FUROSEMIDE 40 MG/4 ML VIAL IV SCH ×3 (04:45→20:54)
[2019-04-01 05:50] LABS: Basophils % 0.7 % (0.0-0.8); Eosinophils # 0.2 10*3/uL (0.0-0.87); Hematocrit 31.6 VOL% (35.7-47.0); Hemoglobin 10.3 GM/DL (12.0-16.0); Immature Granulocytes % 0.4 %; Immature Granulocytes Absolute 0.02 #; Lymphocytes # 1.3 10*3/uL (1.4-4.0); Lymphocytes % 23.5 % (21.3-54.2); Mean Corpuscular HGB Conc 32.6 GM/DL (32-36); Mean Corpuscular Volume 85.9 FL (87-102); Mean Platelet Volume 10.9 FL (9.6-12.0); Monocytes % 12.1 % (1.7-12.7); Neutrophils % 59.3 % (38.7-73.9); Platelet Count 206 T/CUMM (130-400); Red Blood Count 3.68 MC/CUMM (3.8-5.5); Red Cell Distribution Width 14.1 % (9.3-17.3); White Blood Count 5.5 T/CUMM (4-12)
[2019-04-01 06:22] LABS: Albumin 1.9 G/DL (3.4-5.0); Calcium 7.8 MG/DL (8.5-10.1); Thyroid Stimulating Hormone 1.58 uIU/ml (0.358-3.74); Total Protein 5.3 G/DL (6.4-8.3)
[2019-04-01] MEDS ORDERED: HEPARIN 10,000 UNIT/10 ML VIAL IV SCH (07:00)
[2019-04-01] MEDS: INSULIN LISPRO 100 UNIT/ML SUBCUT SCH ×4 (08:59→20:54)
[2019-04-01] MEDS: INSULIN GLARGINE 100 UNIT/ML SUBCUT SCH ×2 (10:36→10:41)
[2019-04-01] MEDS: OMEGA 3 ACID ETHYL ESTERS 1 GM CAPSULE PO SCH ×2 (10:37→20:53)
[2019-04-01] MEDS: ESCITALOPRAM 10 MG TABLET PO SCH (10:37)
[2019-04-01] MEDS: TRANEXAMIC ACID TAB 650 MG TABLET PO SCH (10:38)
[2019-04-01] MEDS: DOCUSATE SODIUM 100 MG CAPSULE PO SCH ×3 (10:38→20:53)
[2019-04-01] MEDS: SODIUM BICARBONATE 650 MG TABLET PO SCH ×2 (10:38→20:54)
[2019-04-01] MEDS: PANTOPRAZOLE 40 MG TABLET PO SCH (10:38)
[2019-04-01] MEDS: LABETALOL 200 MG TABLET PO SCH ×3 (10:39→20:52)
[2019-04-01] MEDS: metOLazone 5 MG TABLET PO SCH (10:39)
[2019-04-01] MEDS: hydrALAZINE 25 MG TABLET PO SCH ×4 (10:51→20:54)
[2019-04-01] MEDS: DEXTROSE 10% 250 ML IV PRN (14:20)
[2019-04-01] MEDS: ATORVASTATIN 40 MG TABLET PO SCH (20:54)
[2019-04-01] MEDS ORDERED: METOCLOPRAMIDE 10 MG/2 ML VIAL IV PRN (21:54)
[2019-04-02] MEDS ORDERED: hydrALAZINE 20 MG/1 ML VIAL IV PRN (02:49)
[2019-04-02] MEDS: ONDANSETRON 4 MG/2 ML VIAL IV PRN ×2 (03:20→13:37)
[2019-04-02] MEDS: oxyCODONE/ACETAMINOPHEN 5-325 MG TABLET PO PRN ×3 (03:20→16:28)
[2019-04-02 03:36] LABS: Basophils # 0.1 10*3/uL (0.0-0.2); Basophils % 0.9 % (0.0-0.8); Eosinophils # 0.2 10*3/uL (0.0-0.87); Eosinophils % 4.4 % (0.00-10.9); Hematocrit 32.9 VOL% (35.7-47.0); Hemoglobin 10.6 GM/DL (12.0-16.0); Immature Granulocytes % 0.7 %; Immature Granulocytes Absolute 0.04 #; Lymphocytes # 1.3 10*3/uL (1.4-4.0); Lymphocytes % 23.9 % (21.3-54.2); Mean Corpuscular HGB Conc 32.2 GM/DL (32-36); Mean Corpuscular Volume 85.7 FL (87-102); Mean Platelet Volume 10.5 FL (9.6-12.0); Neutrophils % 55.1 % (38.7-73.9); Platelet Count 196 T/CUMM (130-400); Red Blood Count 3.84 MC/CUMM (3.8-5.5); White Blood Count 5.4 T/CUMM (4-12)
[2019-04-02 04:19] LABS: Albumin 1.8 G/DL (3.4-5.0); Bilirubin,Total 1.4 MG/DL (0.2-1.0); Calcium 7.7 MG/DL (8.5-10.1); Osmolality,Calculated 283.4 MOS/KG (273-304); Thyroid Stimulating Hormone 2.23 uIU/ml (0.358-3.74); Total Protein 4.7 G/DL (6.4-8.3)
[2019-04-02] MEDS: FUROSEMIDE 40 MG/4 ML VIAL IV SCH ×3 (05:45→20:22)
[2019-04-02] MEDS: INSULIN LISPRO 100 UNIT/ML SUBCUT SCH ×4 (08:22→21:21)
[2019-04-02] MEDS: LABETALOL 200 MG TABLET PO SCH ×3 (08:53→20:21)
[2019-04-02] MEDS: PANTOPRAZOLE 40 MG TABLET PO SCH (08:53)
[2019-04-02] MEDS: hydrALAZINE 25 MG TABLET PO SCH ×3 (08:53→20:21)
[2019-04-02] MEDS: metOLazone 5 MG TABLET PO SCH (08:54)
[2019-04-02] MEDS: TRANEXAMIC ACID TAB 650 MG TABLET PO SCH (08:54)
[2019-04-02] MEDS: DOCUSATE SODIUM 100 MG CAPSULE PO SCH ×2 (08:54→20:28)
[2019-04-02] MEDS: SODIUM BICARBONATE 650 MG TABLET PO SCH ×2 (08:54→20:21)
[2019-04-02] MEDS: ESCITALOPRAM 10 MG TABLET PO SCH (08:55)
[2019-04-02] MEDS: INSULIN GLARGINE 100 UNIT/ML SUBCUT SCH (08:59)
[2019-04-02] MEDS: OMEGA 3 ACID ETHYL ESTERS 1 GM CAPSULE PO SCH ×2 (08:59→20:28)
[2019-04-02] MEDS: ATORVASTATIN 40 MG TABLET PO SCH (20:21)
[2019-04-03] MEDS: FUROSEMIDE 40 MG/4 ML VIAL IV SCH ×3 (05:21→21:01)
[2019-04-03] MEDS: oxyCODONE/ACETAMINOPHEN 5-325 MG TABLET PO PRN ×3 (05:23→21:04)
[2019-04-03 05:45] LABS: Thyroid Stimulating Hormone 1.01 uIU/ml (0.358-3.74)
[2019-04-03] MEDS: INSULIN LISPRO 100 UNIT/ML SUBCUT SCH ×4 (07:30→21:38)
[2019-04-03] MEDS: INSULIN GLARGINE 100 UNIT/ML SUBCUT SCH (09:56)
[2019-04-03] MEDS: hydrALAZINE 25 MG TABLET PO SCH ×3 (09:57→21:04)
[2019-04-03] MEDS: SODIUM BICARBONATE 650 MG TABLET PO SCH ×2 (09:57→21:04)
[2019-04-03] MEDS: PANTOPRAZOLE 40 MG TABLET PO SCH (09:57)
[2019-04-03] MEDS: ESCITALOPRAM 10 MG TABLET PO SCH (09:57)
[2019-04-03] MEDS: metOLazone 5 MG TABLET PO SCH (09:57)
[2019-04-03] MEDS: TRANEXAMIC ACID TAB 650 MG TABLET PO SCH (09:57)
[2019-04-03] MEDS: LABETALOL 200 MG TABLET PO SCH ×3 (09:57→21:03)
[2019-04-03] MEDS: OMEGA 3 ACID ETHYL ESTERS 1 GM CAPSULE PO SCH ×2 (10:00→21:08)
[2019-04-03] MEDS: DOCUSATE SODIUM 100 MG CAPSULE PO SCH ×2 (10:00→21:08)
[2019-04-03] MEDS ORDERED: FUROSEMIDE 20 MG/2 ML VIAL ONE (12:09)
[2019-04-03] MEDS: ONDANSETRON 4 MG/2 ML VIAL IV PRN (21:01)
[2019-04-03] MEDS: ATORVASTATIN 40 MG TABLET PO SCH (21:04)
[2019-04-04] MEDS: FUROSEMIDE 40 MG/4 ML VIAL IV SCH ×2 (05:34→13:59)
[2019-04-04] MEDS: SODIUM BICARBONATE 650 MG TABLET PO SCH (08:40)
[2019-04-04] MEDS: TRANEXAMIC ACID TAB 650 MG TABLET PO SCH (08:40)
[2019-04-04] MEDS: LABETALOL 200 MG TABLET PO SCH ×3 (08:40→13:36)
[2019-04-04] MEDS: metOLazone 5 MG TABLET PO SCH (08:40)
[2019-04-04] MEDS: hydrALAZINE 25 MG TABLET PO SCH (08:40)
[2019-04-04] MEDS: PANTOPRAZOLE 40 MG TABLET PO SCH (08:40)
[2019-04-04] MEDS: oxyCODONE/ACETAMINOPHEN 5-325 MG TABLET PO PRN (08:41)
[2019-04-04] MEDS: INSULIN GLARGINE 100 UNIT/ML SUBCUT SCH (08:41)
[2019-04-04] MEDS: INSULIN LISPRO 100 UNIT/ML SUBCUT SCH ×2 (08:41→13:00)
[2019-04-04] MEDS: ESCITALOPRAM 10 MG TABLET PO SCH (08:41)
[2019-04-04] MEDS: DOCUSATE SODIUM 100 MG CAPSULE PO SCH (08:42)
[2019-04-04] MEDS: OMEGA 3 ACID ETHYL ESTERS 1 GM CAPSULE PO SCH (08:42)
[2019-04-04 13:44] VITALS: BP 116/70
== END 2019-04-04 15:00 | disposition home health service (06) | DRG 673 ==
LOC: N.ADMINP 13:28
PROVIDERS: ADMIT Internal Medicine; ATTEND Internal Medicine

== ENCOUNTER 2019-04-11 19:25 | Observation (INO) ==
[2019-04-11] MEDS ORDERED: DEXTROSE 50% 25 GM/50 ML SYRINGE IV ONE (19:44)
[2019-04-11] MEDS ORDERED: ONDANSETRON 4 MG/2 ML VIAL IV STA (20:01)
[2019-04-11] MEDS ORDERED: PANTOPRAZOLE 40 MG VIAL IV STA (20:01)
[2019-04-11 20:09] LABS: Basophils # 0.1 10*3/uL (0.0-0.2); Basophils % 0.8 % (0.0-0.8); Eosinophils # 0.1 10*3/uL (0.0-0.87); Hemoglobin 8.3 GM/DL (12.0-16.0); Immature Granulocytes % 0.5 %; Immature Granulocytes Absolute 0.03 #; Lymphocytes # 1.2 10*3/uL (1.4-4.0); Lymphocytes % 18.9 % (21.3-54.2); Mean Corpuscular HGB Conc 31.9 GM/DL (32-36); Mean Corpuscular Volume 86.1 FL (87-102); Mean Platelet Volume 11.4 FL (9.6-12.0); Monocytes % 13.7 % (1.7-12.7); Neutrophils % 64.1 % (38.7-73.9); Platelet Count 140 T/CUMM (130-400); Red Blood Count 3.02 MC/CUMM (3.8-5.5); Red Cell Distribution Width 13.3 % (9.3-17.3); White Blood Count 6.5 T/CUMM (4-12)
[2019-04-11] MEDS ORDERED: DEXTROSE 50% 25 GM/50 ML VIAL IV STA (20:25)
[2019-04-11 21:27] LABS: Albumin 2.3 G/DL (3.4-5.0); Bilirubin,Total 0.9 MG/DL (0.2-1.0); Calcium 8.1 MG/DL (8.5-10.1); Total Protein 5.6 G/DL (6.4-8.3)
[2019-04-11] MEDS ORDERED: DEXTROSE 5% NACL 0.45% 1,000 ML IV SCH (22:30)
[2019-04-11] MEDS ORDERED: NICOTINE 21 MG/24 HR PATCH TRANSDERM PRN (22:30)
[2019-04-11] MEDS ORDERED: ACETAMINOPHEN 325 MG TABLET PO PRN (22:30)
[2019-04-11] MEDS ORDERED: GLUCAGON 1 MG VIAL IM PRN (22:30)
[2019-04-11] MEDS ORDERED: ONDANSETRON 4 MG/2 ML VIAL IV PRN (22:30)
[2019-04-11] MEDS ORDERED: diphenhydrAMINE CAP 25 MG CAPSULE PO PRN (22:30)
[2019-04-11] MEDS ORDERED: DEXTROSE 10% 250 ML BAG IV PRN (22:30)
[2019-04-11] MEDS ORDERED: guaiFENesin/DM ER 600-30 MG TABLET PO PRN (22:30)
[2019-04-12 04:41] LABS: Apearance,Urine CLOUDY (Clear); Bacteria,Urine Few /HPF (Few); Bilirubin,Urine Negative (Negative); Blood, Urine Negative (Negative); Glucose,Urine (UA) 150 mg/dL (Negative); Ketones,Urine 5 mg/dL (Negative); Mucus,Urine Occasional /LPF (Occasional); Nitrite,Urine Negative (Negative); Protein,Urine >=500 MG/DL; RBC,Urine 7 /HPF (0-4); Squamous Epithelial Cell,Urine Many /HPF (0-10); Urine Color Dark yellow (Yellow); Urine Specific Gravity 1.024 (1.001-1.035); Urine Urobilinogen < 2.0 EU/DL (0.2-1.0); WBC,Urine 14 /HPF (0-6)
[2019-04-12 05:01] LABS: Barbiturates Screen,Urine Negative (Negative); Benzodiazepines Screen,Urine Negative (Negative); Cannabinoid Screen,Urine Negative (Negative); Opiate Screen,Urine Negative (Negative); Phencyclidine Screen,Urine Negative (Negative)
[2019-04-12 05:19] LABS: Calcium 7.9 MG/DL (8.5-10.1); Osmolality,Calculated 291.7 MOS/KG (273-304); Total Protein 5.4 G/DL (6.4-8.3)
[2019-04-12] MEDS ORDERED: NORETHINDRONE E ESTRADIOL IRON PO SCH (09:00)
[2019-04-12] MEDS ORDERED: ESCITALOPRAM 10 MG TABLET PO SCH (09:00)
[2019-04-12] MEDS ORDERED: TRANEXAMIC ACID TAB 650 MG TABLET PO SCH (09:00)
[2019-04-12] MEDS ORDERED: PANTOPRAZOLE 40 MG TABLET PO SCH (09:00)
[2019-04-12] MEDS ORDERED: hydrALAZINE 25 MG TABLET PO SCH (09:00)
[2019-04-12] MEDS ORDERED: LABETALOL 200 MG TABLET PO SCH ×2 (09:00→12:00)
[2019-04-12] MEDS ORDERED: SODIUM BICARBONATE 650 MG TABLET PO SCH (09:00)
[2019-04-12] MEDS ORDERED: INSULIN LISPRO 100 UNIT/ML SUBCUT ONE (09:58)
[2019-04-12 12:30] VITALS: BP 167/93
[2019-04-12] MEDS ORDERED: ATORVASTATIN 40 MG TABLET PO SCH (21:00)
== END 2019-04-12 13:15 | disposition home or self-care (01) ==
LOC: EDBD → EDUNIT# → N.ED 19:25 → N.EDINP 19:25 → N.2W 22:54
PROVIDERS: ADMIT Internal Medicine Nephrology; ATTEND Internal Medicine Nephrology

== ENCOUNTER 2019-04-19 15:11 | Inpatient (IN) ==
[2019-04-19 16:06] LABS: Basophils # 0.1 10*3/uL (0.0-0.2); Basophils % 0.9 % (0.0-0.8); Eosinophils # 0.2 10*3/uL (0.0-0.87); Eosinophils % 3.4 % (0.00-10.9); Hematocrit 23.5 VOL% (35.7-47.0); Hemoglobin 7.7 GM/DL (12.0-16.0); Immature Granulocytes % 0.5 %; Immature Granulocytes Absolute 0.03 #; Lymphocytes # 1.6 10*3/uL (1.4-4.0); Lymphocytes % 26.4 % (21.3-54.2); Mean Corpuscular HGB Conc 32.8 GM/DL (32-36); Mean Corpuscular Volume 85.5 FL (87-102); Mean Platelet Volume 12.1 FL (9.6-12.0); Monocytes % 10.2 % (1.7-12.7); Neutrophils % 58.6 % (38.7-73.9); Platelet Count 150 T/CUMM (130-400); Red Blood Count 2.75 MC/CUMM (3.8-5.5); Red Cell Distribution Width 13.5 % (9.3-17.3); White Blood Count 5.9 T/CUMM (4-12)
[2019-04-19 16:25] LABS: INR 0.9; PT Patient Result 9.5 SECS (9.6-12.2); Partial Thromboplastin Time 39.6 SECS (20.8-36.0)
[2019-04-19 16:28] LABS: Alanine Aminotransferase 25 U/L (13-56); Albumin 2.1 G/DL (3.4-5.0); Alkaline Phosphatase 112 U/L (45-117); Aspartate Amino Transferase 17 U/L (0-37); Blood Urea Nitrogen 19 MG/DL (7-18); Calcium 7.5 MG/DL (8.5-10.1); Estimated Glom Filtration Rate 14 ML/MIN; Osmolality,Calculated 301.1 MOS/KG (273-304); Total Protein 5.9 G/DL (6.4-8.3)
[2019-04-19 16:31] LABS: Glucose 637 MG/DL (74-106)
[2019-04-19] MEDS ORDERED: INSULIN REGULAR 100 UNIT/ML IV ONE (16:35)
[2019-04-19 17:14] LABS: ABG Base Excess 5.9 MMOL/L (-2.5-2.5); ABG HCO3 28.9 MMOL/L (20-26); ABG Oxygen Saturation 34.6 % (95-100); ABG PCO2 44.1 MM HG (35-48); ABG PH 7.448 (7.35-7.45); ABG TCO2 28.9 MMOL/L (23-27)
[2019-04-19] MEDS ORDERED: INSULIN NPH 100 UNIT/ML SUBCUT PRN (21:20)
[2019-04-19] MEDS ORDERED: DEXTROSE 50% 25 GM/50 ML VIAL IV PRN (21:33)
[2019-04-19] MEDS ORDERED: GLUCAGON 1 MG VIAL IM PRN (21:33)
[2019-04-19] MEDS ORDERED: ACETAMINOPHEN 325 MG TABLET PO PRN (21:33)
[2019-04-19] MEDS: LABETALOL 200 MG TABLET PO SCH (22:11)
[2019-04-19] MEDS: ATORVASTATIN 40 MG TABLET PO SCH (22:11)
[2019-04-19] MEDS: SODIUM BICARBONATE 650 MG TABLET PO SCH (22:11)
[2019-04-19] MEDS: INSULIN LISPRO 100 UNIT/ML SUBCUT SCH (23:31)
[2019-04-20 06:52] LABS: Basophils % 0.4 % (0.0-0.8); Eosinophils # 0.2 10*3/uL (0.0-0.87); Hematocrit 21.1 VOL% (35.7-47.0); Hemoglobin 6.9 GM/DL (12.0-16.0); Immature Granulocytes % 0.4 %; Immature Granulocytes Absolute 0.02 #; Lymphocytes # 1.5 10*3/uL (1.4-4.0); Lymphocytes % 32.1 % (21.3-54.2); Mean Corpuscular HGB Conc 32.7 GM/DL (32-36); Mean Corpuscular Volume 84.4 FL (87-102); Mean Platelet Volume 12.1 FL (9.6-12.0); Monocytes % 12.5 % (1.7-12.7); Neutrophils % 50.6 % (38.7-73.9); Platelet Count 141 T/CUMM (130-400); Red Cell Distribution Width 13.6 % (9.3-17.3); White Blood Count 4.7 T/CUMM (4-12)
[2019-04-20 07:05] LABS: Calcium 7.5 MG/DL (8.5-10.1); Osmolality,Calculated 294.5 MOS/KG (273-304)
[2019-04-20] MEDS: INSULIN LISPRO 100 UNIT/ML SUBCUT SCH ×4 (08:46→21:29)
[2019-04-20] MEDS: CHOLECALCIFEROL 1,000 UNIT TABLET PO SCH (08:47)
[2019-04-20] MEDS: LABETALOL 200 MG TABLET PO SCH ×2 (08:48→21:23)
[2019-04-20] MEDS: CYANOCOBALAMIN 500 MCG TABLET PO SCH (08:49)
[2019-04-20] MEDS: hydrALAZINE 25 MG TABLET PO SCH ×3 (08:49→21:23)
[2019-04-20] MEDS: SODIUM BICARBONATE 650 MG TABLET PO SCH ×2 (08:49→21:23)
[2019-04-20] MEDS: ESCITALOPRAM 10 MG TABLET PO SCH (08:49)
[2019-04-20] MEDS ORDERED: NORETHINDRONE E ESTRADIOL IRON PO SCH (09:00)
[2019-04-20] MEDS: ONDANSETRON 4 MG/2 ML VIAL IV PRN (10:44)
[2019-04-20] MEDS: PROMETHAZINE 25 MG/1 ML VIAL IM PRN (11:44)
[2019-04-20] MEDS: TRANEXAMIC ACID TAB 650 MG TABLET PO SCH (11:50)
[2019-04-20] MEDS ORDERED: LABETALOL 200 MG TABLET PO SCH (12:00)
[2019-04-20] MEDS ORDERED: SODIUM CHLORIDE 0.9% 1,000 ML IV PRN (12:31)
[2019-04-20] MEDS: diphenhydrAMINE CAP 25 MG CAPSULE PO PRN (15:38)
[2019-04-20] MEDS ORDERED: HEPARIN 10,000 UNIT/10 ML VIAL IV PRN (18:37)
[2019-04-20] MEDS: METOCLOPRAMIDE 10 MG/2 ML VIAL IV SCH (19:58)
[2019-04-20] MEDS: ATORVASTATIN 40 MG TABLET PO SCH (21:23)
[2019-04-21] MEDS: METOCLOPRAMIDE 10 MG/2 ML VIAL IV SCH ×4 (00:58→17:53)
[2019-04-21] MEDS ORDERED: LEVALBUTEROL 1.25 MG/3 ML NEB RESP TX PRN (05:06)
[2019-04-21 06:03] LABS: Basophils % 0.6 % (0.0-0.8); Eosinophils # 0.1 10*3/uL (0.0-0.87); Eosinophils % 2.2 % (0.00-10.9); Hematocrit 29.6 VOL% (35.7-47.0); Immature Granulocytes % 0.8 %; Immature Granulocytes Absolute 0.05 #; Lymphocytes # 1.1 10*3/uL (1.4-4.0); Lymphocytes % 17.6 % (21.3-54.2); Mean Corpuscular HGB Conc 32.1 GM/DL (32-36); Mean Corpuscular Volume 85.8 FL (87-102); Mean Platelet Volume 11.9 FL (9.6-12.0); Monocytes % 11.3 % (1.7-12.7); Neutrophils % 67.5 % (38.7-73.9); Platelet Count 140 T/CUMM (130-400); Red Cell Distribution Width 14.3 % (9.3-17.3)
[2019-04-21 06:06] LABS: White Blood Count 6.4 T/CUMM (4-12)
[2019-04-21 06:07] LABS: Hemoglobin 9.5 GM/DL (12.0-16.0); Red Blood Count 3.45 MC/CUMM (3.8-5.5)
[2019-04-21 06:08] LABS: Calcium 7.6 MG/DL (8.5-10.1); Osmolality,Calculated 301.8 MOS/KG (273-304)
[2019-04-21] MEDS: diphenhydrAMINE CAP 25 MG CAPSULE PO PRN (06:08)
[2019-04-21] MEDS ORDERED: POTASSIUM CHLORIDE RIDER 10 MEQ in PREMIX 1 EACH IV PRN (08:02)
[2019-04-21] MEDS ORDERED: MAGNESIUM SULF RIDER 2 GM in PREMIX 1 EACH IV PRN (08:02)
[2019-04-21] MEDS ORDERED: SODIUM BICARB INJ 100 MEQ in STERILE WATER INJ 400 ML IV PRN (08:02)
[2019-04-21] MEDS ORDERED: MAGNESIUM SULF RIDER 4 GM in PREMIX 1 EACH IV PRN (08:02)
[2019-04-21] MEDS ORDERED: INSULIN REGULAR 100 UNIT/ML IV ONE ×2 (08:02)
[2019-04-21] MEDS ORDERED: SODIUM PHOSPHATE INJ 17.6 MMOL in SODIUM CHLORIDE 0.9% 250 ML IV PRN (08:02)
[2019-04-21] MEDS ORDERED: DEXTROSE 10% 25 GM/250 ML BAG IV PRN ×2 (08:02)
[2019-04-21] MEDS ORDERED: FUROSEMIDE INJ 200 MG in SODIUM CHLORIDE 0.9% 80 ML IV SCH (08:30)
[2019-04-21 08:39] LABS: ABG Base Excess -1.9 MMOL/L (-2.5-2.5); ABG HCO3 22.8 MMOL/L (20-26); ABG Oxygen Saturation 96.7 % (95-100); ABG PCO2 52.9 MM HG (35-48); ABG PH 7.288 (7.35-7.45); ABG PO2 92.9 MM HG (80-95); ABG TCO2 23.3 MMOL/L (23-27); Allen Test Positive
[2019-04-21] MEDS: INSULIN LISPRO 100 UNIT/ML SUBCUT SCH ×4 (08:57→21:04)
[2019-04-21] MEDS: INSULIN REGULAR DRIP 100 ML IV SCH (09:16)
[2019-04-21 09:17] LABS: Calcium 7.7 MG/DL (8.5-10.1); Osmolality,Calculated 302.2 MOS/KG (273-304)
[2019-04-21] MEDS: ESCITALOPRAM 10 MG TABLET PO SCH (09:33)
[2019-04-21] MEDS: hydrALAZINE 25 MG TABLET PO SCH (09:33)
[2019-04-21] MEDS: metOLazone 5 MG TABLET PO SCH ×2 (09:33→10:03)
[2019-04-21] MEDS: TRANEXAMIC ACID TAB 650 MG TABLET PO SCH (09:33)
[2019-04-21] MEDS: CHOLECALCIFEROL 1,000 UNIT TABLET PO SCH (09:34)
[2019-04-21] MEDS: CYANOCOBALAMIN 500 MCG TABLET PO SCH (09:34)
[2019-04-21] MEDS: LABETALOL 200 MG TABLET PO SCH ×2 (09:34→21:04)
[2019-04-21] MEDS: SODIUM BICARBONATE 650 MG TABLET PO SCH ×2 (09:34→21:04)
[2019-04-21] MEDS ORDERED: INFLUENZA VIRUS VACCINE 0.5 ML SYRINGE IM ONE (12:56)
[2019-04-21] MEDS ORDERED: niCARdipine INJ 25 MG in SODIUM CHLORIDE 0.9% 240 ML IV SCH (13:00)
[2019-04-21 13:24] LABS: Calcium 8.4 MG/DL (8.5-10.1)
[2019-04-21 17:18] LABS: Calcium 8.5 MG/DL (8.5-10.1); Osmolality,Calculated 287.8 MOS/KG (273-304)
[2019-04-21] MEDS ORDERED: hydrALAZINE 20 MG/1 ML VIAL IV ONE (17:28)
[2019-04-21] MEDS: ONDANSETRON 4 MG/2 ML VIAL IV PRN (19:22)
[2019-04-21] MEDS: PROMETHAZINE 25 MG/1 ML VIAL IM PRN (20:21)
[2019-04-21] MEDS ORDERED: hydrALAZINE 20 MG/1 ML VIAL IV PRN (20:43)
[2019-04-21] MEDS ORDERED: PROMETHAZINE 25 MG/1 ML VIAL IM PRN (20:47)
[2019-04-21 20:49] LABS: Calcium 8.4 MG/DL (8.5-10.1); Osmolality,Calculated 283.5 MOS/KG (273-304)
[2019-04-21] MEDS: ATORVASTATIN 40 MG TABLET PO SCH (21:04)
[2019-04-21] MEDS: niCARdipine INJ 25 MG in SODIUM CHLORIDE 0.9% 240 ML IV PRN (21:36)
[2019-04-22] MEDS: METOCLOPRAMIDE 10 MG/2 ML VIAL IV SCH ×4 (00:15→18:14)
[2019-04-22 00:45] LABS: Calcium 8.6 MG/DL (8.5-10.1); Osmolality,Calculated 292.5 MOS/KG (273-304)
[2019-04-22] MEDS ORDERED: DEXTROSE 10% 250 ML IV SCH (04:00)
[2019-04-22] MEDS ORDERED: DEXTROSE 10% 250 ML BAG IV PRN ×2 (04:00)
[2019-04-22 05:15] LABS: Basophils % 0.6 % (0.0-0.8); Eosinophils # 0.1 10*3/uL (0.0-0.87); Eosinophils % 1.8 % (0.00-10.9); Hematocrit 28.9 VOL% (35.7-47.0); Hemoglobin 9.7 GM/DL (12.0-16.0); Immature Granulocytes % 0.7 %; Immature Granulocytes Absolute 0.05 #; Lymphocytes # 1.4 10*3/uL (1.4-4.0); Lymphocytes % 19.7 % (21.3-54.2); Mean Corpuscular HGB Conc 33.6 GM/DL (32-36); Mean Corpuscular Volume 82.8 FL (87-102); Mean Platelet Volume 11.9 FL (9.6-12.0); Neutrophils % 65.2 % (38.7-73.9); Platelet Count 164 T/CUMM (130-400); Red Blood Count 3.49 MC/CUMM (3.8-5.5); Red Cell Distribution Width 14.2 % (9.3-17.3); White Blood Count 7.1 T/CUMM (4-12)
[2019-04-22 05:49] LABS: Calcium 8.6 MG/DL (8.5-10.1); Osmolality,Calculated 280.8 MOS/KG (273-304)
[2019-04-22] MEDS: INSULIN LISPRO 100 UNIT/ML SUBCUT SCH ×4 (07:33→21:33)
[2019-04-22] MEDS: CYANOCOBALAMIN 500 MCG TABLET PO SCH (08:57)
[2019-04-22] MEDS: ESCITALOPRAM 10 MG TABLET PO SCH (08:57)
[2019-04-22] MEDS: TRANEXAMIC ACID TAB 650 MG TABLET PO SCH (08:57)
[2019-04-22] MEDS: LABETALOL 200 MG TABLET PO SCH ×2 (08:57→21:33)
[2019-04-22] MEDS: CHOLECALCIFEROL 1,000 UNIT TABLET PO SCH (08:57)
[2019-04-22] MEDS: diphenhydrAMINE CAP 25 MG CAPSULE PO PRN ×2 (09:00→21:52)
[2019-04-22 10:35] LABS: Calcium 8.4 MG/DL (8.5-10.1); Osmolality,Calculated 289.4 MOS/KG (273-304)
[2019-04-22] MEDS: SODIUM BICARBONATE 650 MG TABLET PO SCH ×2 (11:19→21:33)
[2019-04-22] MEDS: niCARdipine INJ 25 MG in SODIUM CHLORIDE 0.9% 240 ML IV PRN (11:20)
[2019-04-22] MEDS: INSULIN REGULAR DRIP 100 ML IV SCH (13:17)
[2019-04-22] MEDS: NORETHINDRONE E ESTRADIOL IRON PO SCH (13:18)
[2019-04-22 17:36] LABS: Calcium 8.1 MG/DL (8.5-10.1); Osmolality,Calculated 274.2 MOS/KG (273-304)
[2019-04-22 18:48] LABS: Calcium 8.2 MG/DL (8.5-10.1); Osmolality,Calculated 280.8 MOS/KG (273-304)
[2019-04-22 18:54] LABS: Apearance,Urine CLOUDY (Clear); Bacteria,Urine Few /HPF (Few); Bilirubin,Urine Negative (Negative); Blood, Urine Moderate mg/dL (Negative); Glucose,Urine (UA) >=500 mg/dL (Negative); Hyaline Casts,Urine 16 /LPF (0-3); Ketones,Urine 5 mg/dL (Negative); Mucus,Urine Occasional /LPF (Occasional); Nitrite,Urine Negative (Negative); Protein,Urine >=500 MG/DL; RBC,Urine 9 /HPF (0-4); Squamous Epithelial Cell,Urine Many /HPF (0-10); Urine Color Yellow (Yellow); Urine Specific Gravity 1.027 (1.001-1.035); Urine Urobilinogen < 2.0 EU/DL (0.2-1.0); WBC,Urine 23 /HPF (0-6)
[2019-04-22] MEDS ORDERED: FLUCONAZOLE 150 MG TABLET PO ONE (20:51)
[2019-04-22] MEDS: ATORVASTATIN 40 MG TABLET PO SCH (21:33)
[2019-04-23] MEDS: METOCLOPRAMIDE 10 MG/2 ML VIAL IV SCH ×4 (01:22→18:13)
[2019-04-23 06:22] LABS: Basophils % 0.8 % (0.0-0.8); Eosinophils # 0.2 10*3/uL (0.0-0.87); Eosinophils % 3.7 % (0.00-10.9); Hematocrit 29.2 VOL% (35.7-47.0); Hemoglobin 9.2 GM/DL (12.0-16.0); Immature Granulocytes % 0.6 %; Immature Granulocytes Absolute 0.03 #; Lymphocytes # 1.3 10*3/uL (1.4-4.0); Mean Corpuscular HGB Conc 31.5 GM/DL (32-36); Mean Corpuscular Volume 85.9 FL (87-102); Mean Platelet Volume 11.9 FL (9.6-12.0); Monocytes % 12.3 % (1.7-12.7); Neutrophils % 57.6 % (38.7-73.9); Platelet Count 174 T/CUMM (130-400); Red Cell Distribution Width 14.1 % (9.3-17.3); White Blood Count 5.1 T/CUMM (4-12)
[2019-04-23 06:47] LABS: Calcium 8.2 MG/DL (8.5-10.1); Osmolality,Calculated 296.1 MOS/KG (273-304)
[2019-04-23] MEDS: INSULIN LISPRO 100 UNIT/ML SUBCUT SCH ×4 (08:15→20:31)
[2019-04-23] MEDS: CHOLECALCIFEROL 1,000 UNIT TABLET PO SCH (08:24)
[2019-04-23] MEDS: CYANOCOBALAMIN 500 MCG TABLET PO SCH (08:24)
[2019-04-23] MEDS: TRANEXAMIC ACID TAB 650 MG TABLET PO SCH (08:24)
[2019-04-23] MEDS: ESCITALOPRAM 10 MG TABLET PO SCH (08:25)
[2019-04-23] MEDS: SODIUM BICARBONATE 650 MG TABLET PO SCH ×2 (08:25→20:30)
[2019-04-23] MEDS: LABETALOL 200 MG TABLET PO SCH ×2 (08:25→20:30)
[2019-04-23] MEDS: NORETHINDRONE E ESTRADIOL IRON PO SCH (08:53)
[2019-04-23] MEDS: diphenhydrAMINE CAP 25 MG CAPSULE PO PRN (12:43)
[2019-04-23 14:42] LABS: Osmolality,Calculated 279.7 MOS/KG (273-304)
[2019-04-23] MEDS: INSULIN REGULAR DRIP 100 ML IV SCH (17:26)
[2019-04-23] MEDS ORDERED: ONDANSETRON 4 MG TABLET PO PRN (17:37)
[2019-04-23] MEDS: ATORVASTATIN 40 MG TABLET PO SCH (20:31)
[2019-04-24] MEDS: INSULIN LISPRO 100 UNIT/ML SUBCUT SCH ×6 (00:40→21:09)
[2019-04-24] MEDS: METOCLOPRAMIDE 10 MG/2 ML VIAL IV SCH ×4 (00:40→18:14)
[2019-04-24] MEDS: NORETHINDRONE E ESTRADIOL IRON PO SCH (09:01)
[2019-04-24] MEDS: LABETALOL 200 MG TABLET PO SCH ×2 (09:02→21:09)
[2019-04-24] MEDS: ESCITALOPRAM 10 MG TABLET PO SCH (09:05)
[2019-04-24] MEDS: CYANOCOBALAMIN 500 MCG TABLET PO SCH (09:06)
[2019-04-24] MEDS: SODIUM BICARBONATE 650 MG TABLET PO SCH (09:06)
[2019-04-24] MEDS: CHOLECALCIFEROL 1,000 UNIT TABLET PO SCH (09:06)
[2019-04-24] MEDS: TRANEXAMIC ACID TAB 650 MG TABLET PO SCH (11:59)
[2019-04-24] MEDS: ATORVASTATIN 40 MG TABLET PO SCH (21:09)
[2019-04-25] MEDS: METOCLOPRAMIDE 10 MG/2 ML VIAL IV SCH ×2 (01:14→05:39)
[2019-04-25] MEDS: INSULIN LISPRO 100 UNIT/ML SUBCUT SCH ×3 (01:16→09:36)
[2019-04-25 05:19] LABS: Basophils % 0.7 % (0.0-0.8); Eosinophils # 0.3 10*3/uL (0.0-0.87); Eosinophils % 4.8 % (0.00-10.9); Hematocrit 28.3 VOL% (35.7-47.0); Hemoglobin 9.1 GM/DL (12.0-16.0); Immature Granulocytes % 0.9 %; Immature Granulocytes Absolute 0.05 #; Lymphocytes # 1.6 10*3/uL (1.4-4.0); Lymphocytes % 28.9 % (21.3-54.2); Mean Corpuscular HGB Conc 32.2 GM/DL (32-36); Mean Platelet Volume 11.8 FL (9.6-12.0); Monocytes % 12.7 % (1.7-12.7); Platelet Count 201 T/CUMM (130-400); Red Blood Count 3.37 MC/CUMM (3.8-5.5); Red Cell Distribution Width 13.8 % (9.3-17.3); White Blood Count 5.7 T/CUMM (4-12)
[2019-04-25 05:41] LABS: Osmolality,Calculated 304.2 MOS/KG (273-304)
[2019-04-25] MEDS ORDERED: INSULIN ASPART PROTAMINE/ASPART 70/30 100 UNIT/ML SUBCUT SCH ×3 (07:30→16:30)
[2019-04-25 08:30] VITALS: BP 161/80
[2019-04-25] MEDS: CYANOCOBALAMIN 500 MCG TABLET PO SCH (09:35)
[2019-04-25] MEDS: LABETALOL 200 MG TABLET PO SCH (09:35)
[2019-04-25] MEDS: CHOLECALCIFEROL 1,000 UNIT TABLET PO SCH (09:35)
[2019-04-25] MEDS: ESCITALOPRAM 10 MG TABLET PO SCH (09:36)
[2019-04-25] MEDS: TRANEXAMIC ACID TAB 650 MG TABLET PO SCH (09:36)
[2019-04-25] MEDS: NORETHINDRONE E ESTRADIOL IRON PO SCH (09:36)
== END 2019-04-25 11:34 | disposition home or self-care (01) | DRG 640 ==
LOC: N.ED 15:11 → N.EDINP 19:54 → SUATTDRO 19:54 → N.5E 20:41 → N.CC 04-21 06:37 → N.2E 04-23 16:52
PROVIDERS: ADMIT Internal Medicine; ATTEND Internal Medicine Geriatric Medicine

== ENCOUNTER 2019-05-18 17:51 | Inpatient (IN) ==
[2019-05-18] MEDS ORDERED: methylPREDNISolone SOD SUC 125 MG/2 ML VIAL IV STA (18:18)
[2019-05-18] MEDS ORDERED: ALBUTEROL/IPRATROPIUM 3 ML NEB RESP TX STA (18:18)
[2019-05-18] MEDS ORDERED: NITROGLYCERIN 2% OINT 1 INCH/GM PACK TOP STA (18:18)
[2019-05-18] MEDS ORDERED: hydrALAZINE 20 MG/1 ML VIAL IV STA (18:18)
[2019-05-18] MEDS ORDERED: BUMETANIDE 1 MG/4 ML VIAL IV STA (18:18)
[2019-05-18 19:05] LABS: Basophils # 0.1 10*3/uL (0.0-0.2); Basophils % 0.8 % (0.0-0.8); Eosinophils # 0.1 10*3/uL (0.0-0.87); Eosinophils % 1.8 % (0.00-10.9); Hemoglobin 8.1 GM/DL (12.0-16.0); Immature Granulocytes % 0.5 %; Immature Granulocytes Absolute 0.03 #; Lymphocytes # 1.7 10*3/uL (1.4-4.0); Lymphocytes % 27.6 % (21.3-54.2); Mean Corpuscular HGB Conc 32.4 GM/DL (32-36); Mean Corpuscular Volume 86.2 FL (87-102); Monocytes % 10.6 % (1.7-12.7); Neutrophils % 58.7 % (38.7-73.9); Platelet Count 236 T/CUMM (130-400); Red Cell Distribution Width 14.6 % (9.3-17.3)
[2019-05-18 19:15] LABS: Apearance,Urine CLEAR (Clear); Bilirubin,Urine Negative (Negative); Blood, Urine Moderate mg/dL (Negative); Glucose,Urine (UA) >=500 mg/dL (Negative); Ketones,Urine Negative (Negative); Nitrite,Urine Negative (Negative); Protein,Urine >=500 MG/DL; RBC,Urine 18 /HPF (0-4); Squamous Epithelial Cell,Urine Occasional /HPF (0-10); Urine Color Yellow (Yellow); Urine Specific Gravity 1.021 (1.001-1.035); Urine Urobilinogen < 2.0 EU/DL (0.2-1.0); WBC,Urine 3 /HPF (0-6)
[2019-05-18 19:16] LABS: INR 0.9; PT Patient Result 9.9 SECS (9.6-12.2)
[2019-05-18 19:19] LABS: Barbiturates Screen,Urine Negative (Negative); Benzodiazepines Screen,Urine Negative (Negative); Cannabinoid Screen,Urine Negative (Negative); Opiate Screen,Urine Negative (Negative); Phencyclidine Screen,Urine Negative (Negative)
[2019-05-18 19:38] LABS: Albumin 2.5 G/DL (3.4-5.0); Calcium 8.6 MG/DL (8.5-10.1); Osmolality,Calculated 297.1 MOS/KG (273-304)
[2019-05-18] MEDS ORDERED: INSULIN REGULAR 100 UNIT/ML IV STA (19:43)
[2019-05-18] MEDS ORDERED: niCARdipine 25 MG/10 ML VIAL IV ONE (19:58)
[2019-05-18] MEDS: niCARdipine INJ 25 MG in SODIUM CHLORIDE 0.9% 240 ML IV PRN (20:08)
[2019-05-18] MEDS ORDERED: INSULIN NPH 100 UNIT/ML SUBCUT PRN (21:48)
[2019-05-18] MEDS: LABETALOL 200 MG TABLET PO SCH (22:28)
[2019-05-18] MEDS ORDERED: ACETAMINOPHEN 325 MG TABLET PO PRN (23:42)
[2019-05-18] MEDS ORDERED: ONDANSETRON 4 MG/2 ML VIAL IV PRN (23:42)
[2019-05-18] MEDS ORDERED: DOCUSATE SODIUM 100 MG CAPSULE PO PRN (23:42)
[2019-05-18] MEDS ORDERED: ALBUTEROL 2.5 MG/3 ML NEB RESP TX PRN (23:42)
[2019-05-19] MEDS: niCARdipine INJ 25 MG in SODIUM CHLORIDE 0.9% 240 ML IV PRN (02:14)
[2019-05-19] MEDS ORDERED: DEXTROSE 50% 25 GM/50 ML SYRINGE IV PRN (03:01)
[2019-05-19] MEDS ORDERED: GLUCAGON 1 MG VIAL IM PRN (03:01)
[2019-05-19 03:30] LABS: Basophils % 0.7 % (0.0-0.8); Hematocrit 24.2 VOL% (35.7-47.0); Hemoglobin 7.9 GM/DL (12.0-16.0); Immature Granulocytes % 1.1 %; Immature Granulocytes Absolute 0.05 #; Lymphocytes # 0.7 10*3/uL (1.4-4.0); Lymphocytes % 14.8 % (21.3-54.2); Mean Corpuscular HGB Conc 32.6 GM/DL (32-36); Mean Corpuscular Volume 85.2 FL (87-102); Monocytes % 2.7 % (1.7-12.7); Neutrophils % 80.7 % (38.7-73.9); Platelet Count 247 T/CUMM (130-400); Red Blood Count 2.84 MC/CUMM (3.8-5.5); Red Cell Distribution Width 14.6 % (9.3-17.3); White Blood Count 4.4 T/CUMM (4-12)
[2019-05-19 03:51] LABS: Calcium 8.3 MG/DL (8.5-10.1); Osmolality,Calculated 292.7 MOS/KG (273-304)
[2019-05-19] MEDS: INSULIN ASPART PROTAMINE/ASPART 70/30 100 UNIT/ML SUBCUT SCH ×2 (08:00→17:14)
[2019-05-19] MEDS: INSULIN REGULAR 100 UNIT/ML SUBCUT SCH ×4 (08:00→17:15)
[2019-05-19] MEDS: LABETALOL 200 MG TABLET PO SCH ×2 (08:04→21:50)
[2019-05-19] MEDS: hydrALAZINE 25 MG TABLET PO SCH ×3 (08:04→21:50)
[2019-05-19] MEDS: ESCITALOPRAM 10 MG TABLET PO SCH (08:04)
[2019-05-19] MEDS ORDERED: medroxyPROGESTERone 5 MG TABLET PO SCH (09:00)
[2019-05-19] MEDS ORDERED: SUMAtriptan 25 MG TABLET PO PRN (17:36)
[2019-05-20 05:20] LABS: Basophils % 0.7 % (0.0-0.8); Eosinophils # 0.1 10*3/uL (0.0-0.87); Eosinophils % 3.2 % (0.00-10.9); Hematocrit 21.4 VOL% (35.7-47.0); Hemoglobin 6.8 GM/DL (12.0-16.0); Immature Granulocytes % 0.9 %; Immature Granulocytes Absolute 0.04 #; Lymphocytes # 1.5 10*3/uL (1.4-4.0); Lymphocytes % 34.7 % (21.3-54.2); Mean Corpuscular HGB Conc 31.8 GM/DL (32-36); Mean Corpuscular Volume 88.4 FL (87-102); Mean Platelet Volume 10.8 FL (9.6-12.0); Monocytes % 10.1 % (1.7-12.7); Neutrophils % 50.4 % (38.7-73.9); Platelet Count 200 T/CUMM (130-400); Red Blood Count 2.42 MC/CUMM (3.8-5.5); White Blood Count 4.4 T/CUMM (4-12)
[2019-05-20 05:53] LABS: Calcium 7.6 MG/DL (8.5-10.1); Osmolality,Calculated 279.7 MOS/KG (273-304)
[2019-05-20] MEDS: INSULIN REGULAR 100 UNIT/ML SUBCUT SCH ×5 (07:30→15:51)
[2019-05-20] MEDS: LABETALOL 200 MG TABLET PO SCH ×2 (08:45→20:55)
[2019-05-20] MEDS: ESCITALOPRAM 10 MG TABLET PO SCH (08:46)
[2019-05-20] MEDS: INSULIN ASPART PROTAMINE/ASPART 70/30 100 UNIT/ML SUBCUT SCH ×4 (08:47→22:39)
[2019-05-20] MEDS: hydrALAZINE 25 MG TABLET PO SCH ×3 (08:47→20:56)
[2019-05-20] MEDS ORDERED: INSULIN ASPART PROTAMINE/ASPART 70/30 100 UNIT/ML SUBCUT SCH (09:00)
[2019-05-20] MEDS ORDERED: SODIUM CHLORIDE 0.9% 1,000 ML IV PRN (14:48)
[2019-05-20] MEDS ORDERED: DEXTROSE 10% 25 GM/250 ML BAG IV PRN (17:30)
[2019-05-20] MEDS ORDERED: CLORAZEPATE 3.75 MG TABLET PO ONE (22:08)
[2019-05-20] MEDS ORDERED: BUMETANIDE 1 MG/4 ML VIAL IV ONE (23:38)
[2019-05-21] MEDS: oxyCODONE/ACETAMINOPHEN 5-325 MG TABLET PO PRN ×2 (06:23→13:53)
[2019-05-21] MEDS: LABETALOL 200 MG TABLET PO SCH (08:25)
[2019-05-21] MEDS: hydrALAZINE 25 MG TABLET PO SCH ×2 (08:25→14:10)
[2019-05-21] MEDS: ESCITALOPRAM 10 MG TABLET PO SCH (08:25)
[2019-05-21] MEDS: INSULIN ASPART PROTAMINE/ASPART 70/30 100 UNIT/ML SUBCUT SCH (08:57)
[2019-05-21] MEDS: INSULIN REGULAR 100 UNIT/ML SUBCUT SCH ×3 (08:59→17:27)
[2019-05-21 16:39] VITALS: BP 157/108
== END 2019-05-21 17:37 | disposition home or self-care (01) | DRG 291 ==
LOC: N.ED 17:51 → SUATTDRO 21:09 → N.EDINP 21:09 → N.ICU 21:31 → N.TELES 05-20 14:34
PROVIDERS: ADMIT Internal Medicine; ATTEND Internal Medicine

== ENCOUNTER 2019-06-01 03:01 | Observation (INO) ==
[2019-06-01] MEDS ORDERED: methylPREDNISolone SOD SUC 125 MG/2 ML VIAL IV STA (03:24)
[2019-06-01] MEDS ORDERED: NITROGLYCERIN 2% OINT 1 INCH/GM PACK TOP STA (03:24)
[2019-06-01] MEDS ORDERED: ONDANSETRON 4 MG/2 ML VIAL IV STA (03:24)
[2019-06-01] MEDS ORDERED: hydrALAZINE 20 MG/1 ML VIAL IV STA (03:24)
[2019-06-01] MEDS ORDERED: ALBUTEROL 2.5 MG/3 ML NEB RESP TX SCH (03:30)
[2019-06-01 03:46] LABS: Basophils # 0.1 10*3/uL (0.0-0.2); Basophils % 0.7 % (0.0-0.8); Eosinophils # 0.2 10*3/uL (0.0-0.87); Eosinophils % 2.7 % (0.00-10.9); Hematocrit 29.4 VOL% (35.7-47.0); Hemoglobin 9.3 GM/DL (12.0-16.0); Immature Granulocytes % 1.4 %; Lymphocytes # 1.8 10*3/uL (1.4-4.0); Lymphocytes % 26.1 % (21.3-54.2); Mean Corpuscular HGB Conc 31.6 GM/DL (32-36); Mean Corpuscular Volume 89.4 FL (87-102); Monocytes % 10.1 % (1.7-12.7); Platelet Count 199 T/CUMM (130-400); Red Blood Count 3.29 MC/CUMM (3.8-5.5); Red Cell Distribution Width 14.7 % (9.3-17.3)
[2019-06-01 03:54] LABS: INR 0.9; PT Patient Result 10.1 SECS (9.6-12.2)
[2019-06-01] MEDS ORDERED: ALBUTEROL NEB SOLN 5 MG/ML 20 ML/BOTTLE ONE (03:56)
[2019-06-01 04:08] LABS: Albumin 2.3 G/DL (3.4-5.0); Bilirubin,Total 0.6 MG/DL (0.2-1.0); Calcium 8.3 MG/DL (8.5-10.1); Osmolality,Calculated 280.7 MOS/KG (273-304); Total Protein 5.7 G/DL (6.4-8.3)
[2019-06-01 04:33] LABS: ABG Base Excess 5.7 MMOL/L (-2.5-2.5); ABG HCO3 27.4 MMOL/L (20-26); ABG Oxygen Saturation 97.5 % (95-100); ABG PCO2 29.9 MM HG (35-48); ABG PO2 89.1 MM HG (80-95); ABG TCO2 28.3 MMOL/L (23-27)
[2019-06-01] MEDS ORDERED: CYCLOBENZAPRINE 10 MG TABLET PO STA (05:09)
[2019-06-01] MEDS ORDERED: ACETAMINOPHEN 325 MG TABLET PO PRN (06:06)
[2019-06-01] MEDS ORDERED: DEXTROSE 50% 25 GM/50 ML SYRINGE IV PRN (06:06)
[2019-06-01] MEDS ORDERED: GLUCAGON 1 MG VIAL IM PRN (06:06)
[2019-06-01] MEDS: INSULIN LISPRO 100 UNIT/ML SUBCUT SCH ×4 (09:27→21:51)
[2019-06-01] MEDS ORDERED: HEPARIN 10,000 UNIT/10 ML VIAL IV PRN (13:43)
[2019-06-01] MEDS: INSULIN ASPART PROTAMINE/ASPART 70/30 100 UNIT/ML SUBCUT SCH (17:05)
[2019-06-01] MEDS: CYCLOBENZAPRINE 10 MG TABLET PO PRN (18:17)
[2019-06-01] MEDS: hydrALAZINE 25 MG TABLET PO SCH (21:50)
[2019-06-02] MEDS: ONDANSETRON 4 MG/2 ML VIAL IV PRN ×2 (00:32→17:25)
[2019-06-02] MEDS: CYCLOBENZAPRINE 10 MG TABLET PO PRN (01:06)
[2019-06-02 05:42] LABS: Basophils % 0.5 % (0.0-0.8); Eosinophils # 0.1 10*3/uL (0.0-0.87); Eosinophils % 1.6 % (0.00-10.9); Hematocrit 31.2 VOL% (35.7-47.0); Hemoglobin 9.8 GM/DL (12.0-16.0); Immature Granulocytes Absolute 0.09 #; Lymphocytes # 1.8 10*3/uL (1.4-4.0); Lymphocytes % 20.4 % (21.3-54.2); Mean Corpuscular HGB Conc 31.4 GM/DL (32-36); Mean Corpuscular Volume 89.1 FL (87-102); Mean Platelet Volume 11.4 FL (9.6-12.0); Monocytes % 8.1 % (1.7-12.7); Neutrophils % 68.4 % (38.7-73.9); Platelet Count 186 T/CUMM (130-400); Red Cell Distribution Width 15.1 % (9.3-17.3); White Blood Count 8.6 T/CUMM (4-12)
[2019-06-02 06:17] LABS: Calcium 8.6 MG/DL (8.5-10.1); Osmolality,Calculated 281.9 MOS/KG (273-304)
[2019-06-02] MEDS: INSULIN LISPRO 100 UNIT/ML SUBCUT SCH ×4 (09:15→21:27)
[2019-06-02] MEDS: medroxyPROGESTERone 5 MG TABLET PO SCH (09:15)
[2019-06-02] MEDS: hydrALAZINE 25 MG TABLET PO SCH ×3 (09:15→21:27)
[2019-06-02] MEDS: INSULIN ASPART PROTAMINE/ASPART 70/30 100 UNIT/ML SUBCUT SCH ×2 (09:16→17:25)
[2019-06-03 05:13] LABS: Basophils # 0.1 10*3/uL (0.0-0.2); Basophils % 0.7 % (0.0-0.8); Eosinophils # 0.2 10*3/uL (0.0-0.87); Eosinophils % 3.5 % (0.00-10.9); Hematocrit 31.2 VOL% (35.7-47.0); Hemoglobin 9.8 GM/DL (12.0-16.0); Immature Granulocytes Absolute 0.14 #; Lymphocytes # 2.3 10*3/uL (1.4-4.0); Lymphocytes % 33.8 % (21.3-54.2); Mean Corpuscular HGB Conc 31.4 GM/DL (32-36); Mean Corpuscular Volume 90.2 FL (87-102); Mean Platelet Volume 11.3 FL (9.6-12.0); Monocytes % 9.7 % (1.7-12.7); Neutrophils % 50.3 % (38.7-73.9); Platelet Count 197 T/CUMM (130-400); Red Blood Count 3.46 MC/CUMM (3.8-5.5); Red Cell Distribution Width 15.5 % (9.3-17.3); White Blood Count 6.9 T/CUMM (4-12)
[2019-06-03 05:41] LABS: Calcium 8.1 MG/DL (8.5-10.1); Osmolality,Calculated 278.1 MOS/KG (273-304)
[2019-06-03 07:57] VITALS: BP 144/104
[2019-06-03] MEDS: hydrALAZINE 25 MG TABLET PO SCH (09:10)
[2019-06-03] MEDS: medroxyPROGESTERone 5 MG TABLET PO SCH (09:10)
[2019-06-03] MEDS: INSULIN ASPART PROTAMINE/ASPART 70/30 100 UNIT/ML SUBCUT SCH (09:10)
[2019-06-03] MEDS: INSULIN LISPRO 100 UNIT/ML SUBCUT SCH (09:19)
== END 2019-06-03 11:52 | disposition home or self-care (01) ==
LOC: EDUNIT# → N.ED 03:01 → N.EDINP 03:01 → N.TELES 06:14
PROVIDERS: ADMIT Internal Medicine; ATTEND Internal Medicine

== ENCOUNTER 2019-07-31 04:04 | Observation (INO) ==
[2019-07-31] MEDS ORDERED: hydrALAZINE 20 MG/1 ML VIAL IV STA (04:39)
[2019-07-31 05:19] LABS: Basophils # 0.1 10*3/uL (0.0-0.2); Basophils % 0.8 % (0.0-0.8); Eosinophils # 0.2 10*3/uL (0.0-0.87); Eosinophils % 3.1 % (0.00-10.9); Hematocrit 33.2 VOL% (35.7-47.0); Hemoglobin 10.3 GM/DL (12.0-16.0); Immature Granulocytes % 1.2 %; Immature Granulocytes Absolute 0.09 #; Lymphocytes # 1.6 10*3/uL (1.4-4.0); Lymphocytes % 22.2 % (21.3-54.2); Mean Corpuscular Volume 92.7 FL (87-102); Mean Platelet Volume 10.9 FL (9.6-12.0); Monocytes % 14.3 % (1.7-12.7); Neutrophils % 58.4 % (38.7-73.9); Platelet Count 236 T/CUMM (130-400); Red Blood Count 3.58 MC/CUMM (3.8-5.5); Red Cell Distribution Width 15.1 % (9.3-17.3); White Blood Count 7.3 T/CUMM (4-12)
[2019-07-31 06:29] LABS: Albumin 2.3 G/DL (3.4-5.0); Bilirubin,Total 0.6 MG/DL (0.2-1.0); Calcium 8.4 MG/DL (8.5-10.1)
[2019-07-31] MEDS ORDERED: LABETALOL 20 MG/4 ML SYRINGE IV STA (06:34)
[2019-07-31] MEDS ORDERED: ACETAMINOPHEN 325 MG TABLET PO PRN (06:43)
[2019-07-31] MEDS ORDERED: ONDANSETRON 4 MG/2 ML VIAL IV PRN (06:43)
[2019-07-31] MEDS ORDERED: DICYCLOMINE 20 MG TABLET PO PRN (06:45)
[2019-07-31] MEDS ORDERED: ONDANSETRON 4 MG TABLET PO PRN (06:45)
[2019-07-31] MEDS ORDERED: CYCLOBENZAPRINE 10 MG TABLET PO PRN (06:45)
[2019-07-31] MEDS: LABETALOL 200 MG TABLET PO SCH ×2 (08:34→20:34)
[2019-07-31] MEDS: DOCUSATE SODIUM 100 MG CAPSULE PO SCH ×2 (08:34→20:34)
[2019-07-31] MEDS: PANTOPRAZOLE 40 MG TABLET PO SCH (08:34)
[2019-07-31] MEDS ORDERED: DEXTROSE 10% 250 ML BAG IV PRN (09:27)
[2019-07-31] MEDS ORDERED: GLUCAGON 1 MG VIAL IM PRN (09:27)
[2019-07-31] MEDS ORDERED: ONDANSETRON 4 MG/2 ML VIAL IV ONE (09:49)
[2019-07-31] MEDS ORDERED: AMITRIPTYLINE 25 MG TABLET PO PRN (09:55)
[2019-07-31] MEDS ORDERED: AMITRIPTYLINE 25 MG TABLET PO ONE (09:55)
[2019-07-31] MEDS ORDERED: SUMAtriptan 6 MG/0.5 ML VIAL SUBCUT ONE (10:08)
[2019-07-31] MEDS: PROMETHAZINE 25 MG TABLET PO SCH ×3 (10:29→20:34)
[2019-07-31] MEDS: OLMESARTAN 20 MG TABLET PO SCH (10:30)
[2019-07-31] MEDS: INSULIN LISPRO 100 UNIT/ML SUBCUT SCH ×3 (12:21→20:45)
[2019-08-01] MEDS: PROMETHAZINE 25 MG TABLET PO SCH ×4 (03:51→20:47)
[2019-08-01 06:23] LABS: Basophils % 0.9 % (0.0-0.8); Eosinophils # 0.2 10*3/uL (0.0-0.87); Hematocrit 31.7 VOL% (35.7-47.0); Hemoglobin 9.7 GM/DL (12.0-16.0); Immature Granulocytes % 1.1 %; Immature Granulocytes Absolute 0.05 #; Lymphocytes # 1.4 10*3/uL (1.4-4.0); Lymphocytes % 31.5 % (21.3-54.2); Mean Corpuscular HGB Conc 30.6 GM/DL (32-36); Mean Corpuscular Volume 93.8 FL (87-102); Mean Platelet Volume 11.7 FL (9.6-12.0); Monocytes % 15.4 % (1.7-12.7); Neutrophils % 47.1 % (38.7-73.9); Platelet Count 205 T/CUMM (130-400); Red Blood Count 3.38 MC/CUMM (3.8-5.5); Red Cell Distribution Width 15.4 % (9.3-17.3); White Blood Count 4.5 T/CUMM (4-12)
[2019-08-01 06:49] LABS: Calcium 8.2 MG/DL (8.5-10.1); Osmolality,Calculated 293.2 MOS/KG (273-304)
[2019-08-01 09:01] LABS: Albumin 1.9 G/DL (3.4-5.0); Bilirubin,Direct 0.2 MG/DL (0.0-0.20); Bilirubin,Indirect 0.6 MG/DL (0.0-1.0); Bilirubin,Total 0.8 MG/DL (0.2-1.0); Total Protein 5.3 G/DL (6.4-8.3)
[2019-08-01] MEDS: INSULIN LISPRO 100 UNIT/ML SUBCUT SCH (09:24)
[2019-08-01] MEDS: OLMESARTAN 20 MG TABLET PO SCH (09:25)
[2019-08-01] MEDS: LABETALOL 200 MG TABLET PO SCH ×2 (09:25→20:46)
[2019-08-01] MEDS: FAMOTIDINE 20 MG TABLET PO SCH (09:26)
[2019-08-01] MEDS: DOCUSATE SODIUM 100 MG CAPSULE PO SCH ×2 (09:26→20:46)
[2019-08-01] MEDS: PANTOPRAZOLE 40 MG TABLET PO SCH (09:27)
[2019-08-01] MEDS ORDERED: INSULIN GLARGINE 100 UNIT/ML SUBCUT ONE (10:15)
[2019-08-01] MEDS: INSULIN REGULAR 100 UNIT/ML SUBCUT SCH ×3 (11:51→22:23)
[2019-08-01] MEDS: ACETAMINOPHEN 325 MG TABLET PO SCH ×2 (20:46→22:24)
[2019-08-01] MEDS: AMITRIPTYLINE 25 MG TABLET PO SCH (20:47)
[2019-08-01] MEDS: BUTALBITAL/ACETAMIN/CAFFEINE 50-325-40 MG TABLET PO PRN (20:47)
[2019-08-01] MEDS: INSULIN GLARGINE 100 UNIT/ML SUBCUT SCH (22:24)
[2019-08-02] MEDS: PROMETHAZINE 25 MG TABLET PO SCH ×2 (03:57→10:01)
[2019-08-02 06:35] LABS: Basophils % 1.3 % (0.0-0.8); Eosinophils # 0.2 10*3/uL (0.0-0.87); Eosinophils % 5.6 % (0.00-10.9); Hematocrit 28.7 VOL% (35.7-47.0); Hemoglobin 8.7 GM/DL (12.0-16.0); Immature Granulocytes % 1.7 %; Immature Granulocytes Absolute 0.05 #; Lymphocytes # 1.3 10*3/uL (1.4-4.0); Lymphocytes % 44.4 % (21.3-54.2); Mean Corpuscular HGB Conc 30.3 GM/DL (32-36); Mean Corpuscular Volume 94.1 FL (87-102); Mean Platelet Volume 11.8 FL (9.6-12.0); Monocytes % 17.5 % (1.7-12.7); Neutrophils % 29.5 % (38.7-73.9); Platelet Count 176 T/CUMM (130-400); Red Blood Count 3.05 MC/CUMM (3.8-5.5); Red Cell Distribution Width 15.4 % (9.3-17.3)
[2019-08-02 06:51] LABS: Albumin 1.7 G/DL (3.4-5.0); Bilirubin,Direct 0.18 MG/DL (0.0-0.20); Bilirubin,Indirect 0.4 MG/DL (0.0-1.0); Bilirubin,Total 0.6 MG/DL (0.2-1.0); Total Protein 5.1 G/DL (6.4-8.3)
[2019-08-02 06:53] LABS: Albumin 1.7 G/DL (3.4-5.0); Bilirubin,Total 0.6 MG/DL (0.2-1.0); Calcium 8.1 MG/DL (8.5-10.1); Osmolality,Calculated 278.2 MOS/KG (273-304); Risk Ratio 3.11; VLDL CHOLESTEROL 34.8 MG/DL
[2019-08-02 07:22] LABS: Hepatitis B Surface Ag Result Negative (Negative)
[2019-08-02] MEDS: INSULIN REGULAR 100 UNIT/ML SUBCUT SCH ×5 (08:27→21:52)
[2019-08-02] MEDS: LABETALOL 200 MG TABLET PO SCH ×2 (08:39→21:41)
[2019-08-02] MEDS: OLMESARTAN 20 MG TABLET PO SCH (08:39)
[2019-08-02] MEDS: PANTOPRAZOLE 40 MG TABLET PO SCH (08:39)
[2019-08-02] MEDS: FAMOTIDINE 20 MG TABLET PO SCH (08:39)
[2019-08-02] MEDS: DOCUSATE SODIUM 100 MG CAPSULE PO SCH ×2 (08:40→21:39)
[2019-08-02] MEDS: ACETAMINOPHEN 325 MG TABLET PO SCH (10:01)
[2019-08-02] MEDS ORDERED: PROMETHAZINE 25 MG TABLET PO PRN (10:48)
[2019-08-02] MEDS ORDERED: HEPARIN 10,000 UNIT/10 ML VIAL IV PRN (13:15)
[2019-08-02] MEDS: BUTALBITAL/ACETAMIN/CAFFEINE 50-325-40 MG TABLET PO PRN (13:54)
[2019-08-02] MEDS: AMITRIPTYLINE 25 MG TABLET PO SCH (21:40)
[2019-08-02] MEDS: INSULIN GLARGINE 100 UNIT/ML SUBCUT SCH (21:53)
[2019-08-03 06:39] LABS: Albumin 1.9 G/DL (3.4-5.0); Bilirubin,Direct 0.13 MG/DL (0.0-0.20); Bilirubin,Indirect 1.3 MG/DL (0.0-1.0); Bilirubin,Total 1.4 MG/DL (0.2-1.0); Total Protein 5.7 G/DL (6.4-8.3)
[2019-08-03] MEDS: PANTOPRAZOLE 40 MG TABLET PO SCH (09:14)
[2019-08-03] MEDS: LABETALOL 200 MG TABLET PO SCH ×2 (09:14→20:57)
[2019-08-03] MEDS: OLMESARTAN 20 MG TABLET PO SCH (09:14)
[2019-08-03] MEDS: FAMOTIDINE 20 MG TABLET PO SCH (09:15)
[2019-08-03] MEDS: DOCUSATE SODIUM 100 MG CAPSULE PO SCH ×2 (09:15→20:57)
[2019-08-03] MEDS: INSULIN REGULAR 100 UNIT/ML SUBCUT SCH ×4 (09:15→20:59)
[2019-08-03] MEDS ORDERED: ZIPRASIDONE 20 MG CAPSULE PO PRN (15:41)
[2019-08-03] MEDS ORDERED: KETOROLAC 10 MG TABLET PO PRN (15:41)
[2019-08-03] MEDS: INSULIN GLARGINE 100 UNIT/ML SUBCUT SCH (20:58)
[2019-08-03] MEDS ORDERED: AMITRIPTYLINE 50 MG TABLET PO SCH (21:00)
[2019-08-04 06:06] LABS: Basophils % 1.7 % (0.0-0.8); Eosinophils # 0.1 10*3/uL (0.0-0.87); Eosinophils % 4.3 % (0.00-10.9); Hematocrit 29.5 VOL% (35.7-47.0); Immature Granulocytes % 4.3 %; Lymphocytes % 44.4 % (21.3-54.2); Mean Corpuscular HGB Conc 30.5 GM/DL (32-36); Mean Corpuscular Volume 96.4 FL (87-102); Mean Platelet Volume 11.3 FL (9.6-12.0); Monocytes % 18.5 % (1.7-12.7); Neutrophils % 26.8 % (38.7-73.9); Platelet Count 160 T/CUMM (130-400); Red Blood Count 3.06 MC/CUMM (3.8-5.5); Red Cell Distribution Width 15.6 % (9.3-17.3); White Blood Count 2.3 T/CUMM (4-12)
[2019-08-04 06:24] LABS: Albumin 1.7 G/DL (3.4-5.0); Bilirubin,Total 1.2 MG/DL (0.2-1.0); Calcium 7.9 MG/DL (8.5-10.1); Total Protein 5.3 G/DL (6.4-8.3); Uric Acid 3.7 MG/DL (2.6-6.0)
[2019-08-04 06:35] LABS: Band Neutrophils 2 % (0-10); Eosinophils 3 % (0-10); Hypochromasia 1+; Lymphocytes 41 % (20-55); Ovalocytes Slight; Platelet Estimate Adequate; Segmented Neutrophils 37 % (50-85); Total Cells Counted 100
[2019-08-04] MEDS: INSULIN REGULAR 100 UNIT/ML SUBCUT SCH ×3 (08:28→15:49)
[2019-08-04] MEDS: LABETALOL 200 MG TABLET PO SCH (08:46)
[2019-08-04] MEDS: OLMESARTAN 20 MG TABLET PO SCH (08:46)
[2019-08-04] MEDS: FAMOTIDINE 20 MG TABLET PO SCH (08:47)
[2019-08-04] MEDS: DOCUSATE SODIUM 100 MG CAPSULE PO SCH (08:47)
[2019-08-04] MEDS: PANTOPRAZOLE 40 MG TABLET PO SCH (08:47)
[2019-08-04 15:48] VITALS: BP 156/100
== END 2019-08-04 19:33 | disposition home or self-care (01) ==
LOC: EDUNIT# → N.ED 04:04 → N.EDINP 04:04 → N.3E 08:21
PROVIDERS: ADMIT Internal Medicine; ATTEND Internal Medicine

== ENCOUNTER 2019-08-26 11:10 | Inpatient (IN) ==
[2019-08-26] MEDS ORDERED: INSULIN LISPRO 100 UNIT/ML SUBCUT STA (12:10)
[2019-08-26] MEDS ORDERED: ONDANSETRON 4 MG/2 ML VIAL ONE (12:24)
[2019-08-26] MEDS ORDERED: ONDANSETRON 4 MG/2 ML VIAL IV STA (12:29)
[2019-08-26 12:43] LABS: Basophils % 0.6 % (0.0-0.8); Eosinophils % 0.2 % (0.00-10.9); Hematocrit 29.9 VOL% (35.7-47.0); Hemoglobin 9.3 GM/DL (12.0-16.0); Immature Granulocytes % 1.2 %; Immature Granulocytes Absolute 0.06 #; Lymphocytes % 19.3 % (21.3-54.2); Mean Corpuscular HGB Conc 31.1 GM/DL (32-36); Mean Corpuscular Volume 92.6 FL (87-102); Mean Platelet Volume 13.1 FL (9.6-12.0); Monocytes % 13.9 % (1.7-12.7); Neutrophils % 64.8 % (38.7-73.9); Platelet Count 105 T/CUMM (130-400); Red Blood Count 3.23 MC/CUMM (3.8-5.5); Red Cell Distribution Width 15.6 % (9.3-17.3); White Blood Count 5.1 T/CUMM (4-12)
[2019-08-26 13:12] LABS: Calcium 8.4 MG/DL (8.5-10.1); Ferritin 4780.3 ng/ml (8-252); Osmolality,Calculated 313.8 MOS/KG (273-304)
[2019-08-26] MEDS ORDERED: INSULIN REGULAR 100 UNIT/ML IV STA (13:18)
[2019-08-26] MEDS ORDERED: ALBUTEROL 2.5 MG/3 ML NEB RESP TX STA (15:21)
[2019-08-26] MEDS ORDERED: DEXTROSE 10% 250 ML BAG IV PRN (15:23)
[2019-08-26] MEDS ORDERED: ONDANSETRON 4 MG/2 ML VIAL IV PRN (15:23)
[2019-08-26] MEDS ORDERED: GLUCAGON 1 MG VIAL IM PRN (15:23)
[2019-08-26] MEDS: INSULIN LISPRO 100 UNIT/ML SUBCUT SCH ×2 (17:00→22:24)
[2019-08-26] MEDS: ACETAMINOPHEN 325 MG TABLET PO PRN (17:09)
[2019-08-26] MEDS ORDERED: SODIUM POLYSTYRENE SULFATE 15 GM/60 ML BOTTLE PO SCH (18:26)
[2019-08-26 19:00] LABS: CKMB % 3.2 %; Troponin I 0.213 NG/ML (0.00-0.045)
[2019-08-26] MEDS: DOCUSATE SODIUM 100 MG CAPSULE PO SCH (22:24)
[2019-08-26] MEDS: AMITRIPTYLINE 50 MG TABLET PO SCH (22:24)
[2019-08-26] MEDS: INSULIN GLARGINE 100 UNIT/ML SUBCUT SCH (22:25)
[2019-08-26] MEDS: ENOXAPARIN 30 MG/0.3 ML SYRINGE SUBCUT SCH (22:25)
[2019-08-26] MEDS: LABETALOL 200 MG TABLET PO SCH (22:25)
[2019-08-26 22:56] LABS: CKMB % 3.2 %; Troponin I 0.207 NG/ML (0.00-0.045)
[2019-08-27 00:08] LABS: CKMB % 3.1 %
[2019-08-27 00:11] LABS: Troponin I 0.204 NG/ML (0.00-0.045)
[2019-08-27 03:38] LABS: Calcium 7.7 MG/DL (8.5-10.1); Osmolality,Calculated 306.7 MOS/KG (273-304)
[2019-08-27] MEDS: ACETAMINOPHEN 325 MG TABLET PO PRN ×3 (04:25→21:41)
[2019-08-27] MEDS ORDERED: INSULIN LISPRO 100 UNIT/ML SUBCUT ONE (05:00)
[2019-08-27] MEDS: LABETALOL 200 MG TABLET PO SCH ×2 (08:15→21:40)
[2019-08-27] MEDS: INSULIN LISPRO 100 UNIT/ML SUBCUT SCH ×4 (08:15→21:39)
[2019-08-27] MEDS: PANTOPRAZOLE 40 MG TABLET PO SCH (08:15)
[2019-08-27] MEDS ORDERED: SODIUM POLYSTYRENE SULFATE 15 GM/60 ML BOTTLE PO SCH (09:00)
[2019-08-27] MEDS: DOCUSATE SODIUM 100 MG CAPSULE PO SCH ×2 (09:18→21:39)
[2019-08-27] MEDS ORDERED: HEPARIN 10,000 UNIT/10 ML VIAL IV PRN (09:43)
[2019-08-27 09:50] LABS: Basophils % 0.4 % (0.0-0.8); Eosinophils % 0.4 % (0.00-10.9); Hematocrit 29.9 VOL% (35.7-47.0); Hemoglobin 9.1 GM/DL (12.0-16.0); Immature Granulocytes % 0.8 %; Immature Granulocytes Absolute 0.04 #; Lymphocytes # 0.9 10*3/uL (1.4-4.0); Lymphocytes % 16.3 % (21.3-54.2); Mean Corpuscular HGB Conc 30.4 GM/DL (32-36); Mean Corpuscular Volume 95.8 FL (87-102); Mean Platelet Volume 13.5 FL (9.6-12.0); Monocytes % 13.6 % (1.7-12.7); Neutrophils % 68.5 % (38.7-73.9); Platelet Count 106 T/CUMM (130-400); Red Blood Count 3.12 MC/CUMM (3.8-5.5); Red Cell Distribution Width 15.7 % (9.3-17.3); White Blood Count 5.2 T/CUMM (4-12)
[2019-08-27 11:27] LABS: Apearance,Urine CLOUDY (Clear); Bacteria,Urine Many /HPF (Few); Bilirubin,Urine Negative (Negative); Blood, Urine Small mg/dL (Negative); Glucose,Urine (UA) >=500 mg/dL (Negative); Ketones,Urine 5 mg/dL (Negative); Mucus,Urine Occasional /LPF (Occasional); Nitrite,Urine Negative (Negative); Protein,Urine >=500 MG/DL; RBC,Urine 5 /HPF (0-4); Squamous Epithelial Cell,Urine Few /HPF (0-10); Urine Color Amber (Yellow); Urine Specific Gravity 1.017 (1.001-1.035); Urine Urobilinogen < 2.0 EU/DL (0.2-1.0); WBC,Urine 4 /HPF (0-6)
[2019-08-27] MEDS ORDERED: ONDANSETRON ODT 4 MG TABLET PO PRN (16:21)
[2019-08-27] MEDS: PROMETHAZINE 25 MG TABLET PO PRN (16:57)
[2019-08-27] MEDS: AMITRIPTYLINE 50 MG TABLET PO SCH (21:39)
[2019-08-27] MEDS: INSULIN GLARGINE 100 UNIT/ML SUBCUT SCH (21:40)
[2019-08-27] MEDS: ENOXAPARIN 30 MG/0.3 ML SYRINGE SUBCUT SCH (21:40)
[2019-08-27] MEDS: DICYCLOMINE 20 MG TABLET PO PRN (21:40)
[2019-08-28] MEDS: ACETAMINOPHEN 325 MG TABLET PO PRN ×3 (04:40→22:35)
[2019-08-28 06:07] LABS: Basophils % 0.3 % (0.0-0.8); Hematocrit 23.2 VOL% (35.7-47.0); Hemoglobin 7.3 GM/DL (12.0-16.0); Immature Granulocytes Absolute 0.03 #; Lymphocytes # 0.9 10*3/uL (1.4-4.0); Lymphocytes % 29.3 % (21.3-54.2); Mean Corpuscular HGB Conc 31.5 GM/DL (32-36); Mean Corpuscular Volume 91.7 FL (87-102); Mean Platelet Volume 13.2 FL (9.6-12.0); Monocytes % 16.9 % (1.7-12.7); Neutrophils % 52.5 % (38.7-73.9); Platelet Count 106 T/CUMM (130-400); Red Blood Count 2.53 MC/CUMM (3.8-5.5); Red Cell Distribution Width 15.3 % (9.3-17.3); White Blood Count 2.9 T/CUMM (4-12)
[2019-08-28 06:27] LABS: Albumin 1.9 G/DL (3.4-5.0); Bilirubin,Total 0.7 MG/DL (0.2-1.0); Calcium 7.2 MG/DL (8.5-10.1); Osmolality,Calculated 289.4 MOS/KG (273-304); Risk Ratio 3.36; Total Protein 5.1 G/DL (6.4-8.3); VLDL CHOLESTEROL 37.8 MG/DL
[2019-08-28 07:20] LABS: Atypical Lymphocytes Few; Band Neutrophils 15 % (0-10); Lymphocytes 34 % (20-55); Metamyelocytes 1 %; Nucleated Red Blood Cells 0 (0-5); Platelet Estimate Adequate; Segmented Neutrophils 40 % (50-85); Smudge Cells Few; Total Cells Counted 100
[2019-08-28 07:21] LABS: Anisocytosis 2+; Poikilocytosis Slight; Tear Drop Cells Few
[2019-08-28] MEDS: INSULIN LISPRO 100 UNIT/ML SUBCUT SCH ×4 (08:52→22:35)
[2019-08-28] MEDS: DOCUSATE SODIUM 100 MG CAPSULE PO SCH ×2 (08:53→22:52)
[2019-08-28] MEDS: LABETALOL 200 MG TABLET PO SCH ×2 (08:53→22:35)
[2019-08-28] MEDS: PANTOPRAZOLE 40 MG TABLET PO SCH (09:16)
[2019-08-28] MEDS ORDERED: BUTALBITAL/ACETAMIN/CAFFEINE 50-325-40 MG TABLET PO PRN (13:07)
[2019-08-28 15:22] LABS: Troponin I 0.254 NG/ML (0.00-0.045)
[2019-08-28] MEDS: PROMETHAZINE 25 MG TABLET PO PRN (16:13)
[2019-08-28] MEDS: INSULIN GLARGINE 100 UNIT/ML SUBCUT SCH (22:35)
[2019-08-28] MEDS: GABAPENTIN 100 MG CAPSULE PO SCH (22:35)
[2019-08-28] MEDS: AMITRIPTYLINE 50 MG TABLET PO SCH (22:35)
[2019-08-28] MEDS: ENOXAPARIN 30 MG/0.3 ML SYRINGE SUBCUT SCH (22:53)
[2019-08-29 05:58] LABS: Basophils % 0.8 % (0.0-0.8); Eosinophils % 0.4 % (0.00-10.9); Hematocrit 25.4 VOL% (35.7-47.0); Hemoglobin 7.5 GM/DL (12.0-16.0); Immature Granulocytes % 0.8 %; Immature Granulocytes Absolute 0.02 #; Lymphocytes # 1.1 10*3/uL (1.4-4.0); Lymphocytes % 46.5 % (21.3-54.2); Mean Corpuscular HGB Conc 29.5 GM/DL (32-36); Mean Corpuscular Volume 96.2 FL (87-102); Mean Platelet Volume 13.2 FL (9.6-12.0); Monocytes % 11.2 % (1.7-12.7); Neutrophils % 40.3 % (38.7-73.9); Platelet Count 102 T/CUMM (130-400); Red Blood Count 2.64 MC/CUMM (3.8-5.5); Red Cell Distribution Width 15.3 % (9.3-17.3); White Blood Count 2.4 T/CUMM (4-12)
[2019-08-29 06:30] LABS: Hypochromasia 1+
[2019-08-29 06:31] LABS: Albumin 1.9 G/DL (3.4-5.0); Calcium 6.9 MG/DL (8.5-10.1); Macrocytosis Slight; Osmolality,Calculated 300.2 MOS/KG (273-304); Platelet Estimate Decreased; Tear Drop Cells Slight; Total Protein 5.2 G/DL (6.4-8.3)
[2019-08-29 08:17] LABS: Hepatitis B Core IgM Quant 0.07 Index; Hepatitis B Surface Ag Quant 0.12 Index; Hepatitis B Surface Ag Result Negative (Negative); Hepatitis C Virus Ab Quant 0.07 Index; Hepatitis C Virus Ab Result Negative (Negative)
[2019-08-29] MEDS: GABAPENTIN 100 MG CAPSULE PO SCH ×2 (09:01→20:59)
[2019-08-29] MEDS: PANTOPRAZOLE 40 MG TABLET PO SCH (09:01)
[2019-08-29] MEDS: INSULIN LISPRO 100 UNIT/ML SUBCUT SCH ×4 (09:47→21:00)
[2019-08-29] MEDS: DOCUSATE SODIUM 100 MG CAPSULE PO SCH ×2 (09:52→21:12)
[2019-08-29] MEDS: LABETALOL 200 MG TABLET PO SCH ×2 (09:52→21:13)
[2019-08-29] MEDS: ALBUMIN 25% 25 GM in PREMIX 1 EACH IV SCH ×2 (15:38→20:59)
[2019-08-29] MEDS ORDERED: SODIUM CHLORIDE 0.9% 1,000 ML IV PRN (18:27)
[2019-08-29] MEDS: BENZONATATE 100 MG CAPSULE PO SCH (20:58)
[2019-08-29] MEDS: HYDROXYCHLOROQUINE 200 MG TABLET PO SCH (20:58)
[2019-08-29] MEDS: ZINC SULFATE 220 MG CAPSULE PO SCH (20:59)
[2019-08-29] MEDS: AMITRIPTYLINE 50 MG TABLET PO SCH (20:59)
[2019-08-29] MEDS: INSULIN GLARGINE 100 UNIT/ML SUBCUT SCH (21:00)
[2019-08-29] MEDS ORDERED: HYDROXYCHLOROQUINE 200 MG TABLET PO SCH ×2 (21:00)
[2019-08-29] MEDS: ENOXAPARIN 30 MG/0.3 ML SYRINGE SUBCUT SCH (21:12)
[2019-08-30] MEDS: ACETAMINOPHEN 325 MG TABLET PO PRN ×3 (03:35→20:46)
[2019-08-30] MEDS: BENZONATATE 100 MG CAPSULE PO SCH ×4 (04:10→20:46)
[2019-08-30] MEDS: ALBUMIN 25% 25 GM in PREMIX 1 EACH IV SCH ×3 (04:30→20:45)
[2019-08-30] MEDS: DICYCLOMINE 20 MG TABLET PO PRN (09:00)
[2019-08-30] MEDS: DOCUSATE SODIUM 100 MG CAPSULE PO SCH ×2 (09:55→20:46)
[2019-08-30] MEDS: INSULIN LISPRO 100 UNIT/ML SUBCUT SCH ×4 (09:55→20:46)
[2019-08-30] MEDS: FERROUS SULFATE 325 MG TABLET PO SCH (09:55)
[2019-08-30] MEDS: GABAPENTIN 100 MG CAPSULE PO SCH ×2 (09:56→20:46)
[2019-08-30] MEDS: LABETALOL 200 MG TABLET PO SCH ×2 (09:56→20:46)
[2019-08-30] MEDS: HYDROXYCHLOROQUINE 200 MG TABLET PO SCH ×2 (09:56→20:46)
[2019-08-30] MEDS: PANTOPRAZOLE 40 MG TABLET PO SCH (09:56)
[2019-08-30] MEDS: guaiFENesin 200 MG/10 ML UDCUP PO PRN (16:55)
[2019-08-30] MEDS: DOXYCYCLINE HYCLATE 100 MG CAPSULE PO SCH (20:46)
[2019-08-30] MEDS: AMITRIPTYLINE 50 MG TABLET PO SCH (20:46)
[2019-08-30] MEDS: INSULIN GLARGINE 100 UNIT/ML SUBCUT SCH (20:47)
[2019-08-30] MEDS: ENOXAPARIN 30 MG/0.3 ML SYRINGE SUBCUT SCH (20:48)
[2019-08-31] MEDS: guaiFENesin 200 MG/10 ML UDCUP PO PRN (03:35)
[2019-08-31] MEDS: ALBUMIN 25% 25 GM in PREMIX 1 EACH IV SCH ×3 (05:58→21:20)
[2019-08-31 06:36] LABS: Basophils % 0.6 % (0.0-0.8); Hematocrit 29.4 VOL% (35.7-47.0); Hemoglobin 9.6 GM/DL (12.0-16.0); Immature Granulocytes % 1.2 %; Immature Granulocytes Absolute 0.04 #; Lymphocytes % 30.8 % (21.3-54.2); Mean Corpuscular HGB Conc 32.7 GM/DL (32-36); Mean Corpuscular Volume 88.8 FL (87-102); Mean Platelet Volume 13.4 FL (9.6-12.0); Monocytes % 5.5 % (1.7-12.7); Neutrophils % 61.9 % (38.7-73.9); Platelet Count 112 T/CUMM (130-400); Red Blood Count 3.31 MC/CUMM (3.8-5.5); Red Cell Distribution Width 15.5 % (9.3-17.3); White Blood Count 3.3 T/CUMM (4-12)
[2019-08-31] MEDS: DOXYCYCLINE HYCLATE 100 MG CAPSULE PO SCH ×2 (09:00→21:28)
[2019-08-31] MEDS: BENZONATATE 100 MG CAPSULE PO SCH ×3 (09:00→21:25)
[2019-08-31] MEDS: PANTOPRAZOLE 40 MG TABLET PO SCH (09:00)
[2019-08-31] MEDS: GABAPENTIN 100 MG CAPSULE PO SCH ×2 (09:00→21:24)
[2019-08-31] MEDS: FERROUS SULFATE 325 MG TABLET PO SCH (09:00)
[2019-08-31] MEDS: HYDROXYCHLOROQUINE 200 MG TABLET PO SCH ×2 (09:00→21:24)
[2019-08-31] MEDS: DOCUSATE SODIUM 100 MG CAPSULE PO SCH ×2 (09:00→21:22)
[2019-08-31] MEDS: INSULIN LISPRO 100 UNIT/ML SUBCUT SCH ×4 (09:34→21:23)
[2019-08-31] MEDS: LABETALOL 200 MG TABLET PO SCH ×2 (14:18→21:28)
[2019-08-31 14:33] LABS: Albumin 2.7 G/DL (3.4-5.0); Bilirubin,Total 1.4 MG/DL (0.2-1.0); Calcium 7.7 MG/DL (8.5-10.1); Osmolality,Calculated 282.5 MOS/KG (273-304); Total Protein 5.5 G/DL (6.4-8.3)
[2019-08-31] MEDS: ACETAMINOPHEN 325 MG TABLET PO PRN (21:22)
[2019-08-31] MEDS: AMITRIPTYLINE 50 MG TABLET PO SCH (21:23)
[2019-08-31] MEDS: INSULIN GLARGINE 100 UNIT/ML SUBCUT SCH (21:23)
[2019-08-31] MEDS: ENOXAPARIN 30 MG/0.3 ML SYRINGE SUBCUT SCH (21:24)
[2019-08-31] MEDS: ZINC SULFATE 220 MG CAPSULE PO SCH (21:27)
[2019-08-31] MEDS: PROMETHAZINE 25 MG TABLET PO PRN (22:47)
[2019-09-01 03:43] LABS: Basophils % 0.5 % (0.0-0.8); Hematocrit 30.3 VOL% (35.7-47.0); Hemoglobin 9.6 GM/DL (12.0-16.0); Immature Granulocytes % 1.4 %; Immature Granulocytes Absolute 0.06 #; Lymphocytes # 0.5 10*3/uL (1.4-4.0); Lymphocytes % 12.1 % (21.3-54.2); Mean Corpuscular HGB Conc 31.7 GM/DL (32-36); Mean Corpuscular Volume 90.4 FL (87-102); Mean Platelet Volume 13.1 FL (9.6-12.0); Monocytes % 4.1 % (1.7-12.7); Neutrophils % 81.9 % (38.7-73.9); Platelet Count 134 T/CUMM (130-400); Red Blood Count 3.35 MC/CUMM (3.8-5.5); Red Cell Distribution Width 15.5 % (9.3-17.3); White Blood Count 4.4 T/CUMM (4-12)
[2019-09-01 03:57] LABS: Albumin 3.4 G/DL (3.4-5.0); Bilirubin,Total 1.3 MG/DL (0.2-1.0); Calcium 7.3 MG/DL (8.5-10.1); Osmolality,Calculated 291.5 MOS/KG (273-304); Total Protein 6.5 G/DL (6.4-8.3)
[2019-09-01] MEDS: ALBUMIN 25% 25 GM in PREMIX 1 EACH IV SCH ×3 (05:14→22:00)
[2019-09-01] MEDS: INSULIN LISPRO 100 UNIT/ML SUBCUT SCH ×4 (09:00→22:00)
[2019-09-01] MEDS: FERROUS SULFATE 325 MG TABLET PO SCH (09:30)
[2019-09-01] MEDS: GABAPENTIN 100 MG CAPSULE PO SCH ×2 (09:30→22:00)
[2019-09-01] MEDS: PANTOPRAZOLE 40 MG TABLET PO SCH (09:30)
[2019-09-01] MEDS: DOXYCYCLINE HYCLATE 100 MG CAPSULE PO SCH ×2 (09:30→22:00)
[2019-09-01] MEDS: BENZONATATE 100 MG CAPSULE PO SCH ×3 (09:30→22:00)
[2019-09-01] MEDS: HYDROXYCHLOROQUINE 200 MG TABLET PO SCH ×2 (09:30→22:00)
[2019-09-01] MEDS: DOCUSATE SODIUM 100 MG CAPSULE PO SCH ×2 (09:30→22:00)
[2019-09-01] MEDS: LABETALOL 200 MG TABLET PO SCH ×2 (14:35→22:00)
[2019-09-01] MEDS ORDERED: BISACODYL 5 MG TABLET PO PRN (19:47)
[2019-09-01] MEDS: INSULIN GLARGINE 100 UNIT/ML SUBCUT SCH (22:00)
[2019-09-01] MEDS: ACETAMINOPHEN 325 MG TABLET PO PRN (22:00)
[2019-09-01] MEDS: PROMETHAZINE 25 MG TABLET PO PRN (22:00)
[2019-09-01] MEDS: ENOXAPARIN 30 MG/0.3 ML SYRINGE SUBCUT SCH (22:00)
[2019-09-01] MEDS: AMITRIPTYLINE 50 MG TABLET PO SCH (22:00)
[2019-09-02] MEDS: ALBUMIN 25% 25 GM in PREMIX 1 EACH IV SCH ×2 (04:20→14:05)
[2019-09-02] MEDS: ACETAMINOPHEN 325 MG TABLET PO PRN ×2 (04:20→20:50)
[2019-09-02 06:46] LABS: Basophils % 0.3 % (0.0-0.8); Eosinophils % 0.8 % (0.00-10.9); Immature Granulocytes Absolute 0.08 #; Lymphocytes # 0.6 10*3/uL (1.4-4.0); Lymphocytes % 14.6 % (21.3-54.2); Mean Corpuscular Volume 92.7 FL (87-102); Mean Platelet Volume 12.7 FL (9.6-12.0); Monocytes % 3.5 % (1.7-12.7); Neutrophils % 78.8 % (38.7-73.9); Platelet Count 160 T/CUMM (130-400); Red Blood Count 3.13 MC/CUMM (3.8-5.5); Red Cell Distribution Width 14.9 % (9.3-17.3)
[2019-09-02 07:15] LABS: Albumin 3.5 G/DL (3.4-5.0); Bilirubin,Total 1.2 MG/DL (0.2-1.0); Calcium 8.1 MG/DL (8.5-10.1); Osmolality,Calculated 286.8 MOS/KG (273-304); Total Protein 6.3 G/DL (6.4-8.3)
[2019-09-02] MEDS: GABAPENTIN 100 MG CAPSULE PO SCH ×2 (08:55→21:24)
[2019-09-02] MEDS: HYDROXYCHLOROQUINE 200 MG TABLET PO SCH ×2 (08:55→21:25)
[2019-09-02] MEDS: INSULIN LISPRO 100 UNIT/ML SUBCUT SCH ×4 (08:55→21:24)
[2019-09-02] MEDS: BENZONATATE 100 MG CAPSULE PO SCH ×3 (08:55→21:25)
[2019-09-02] MEDS: FERROUS SULFATE 325 MG TABLET PO SCH (08:55)
[2019-09-02] MEDS: PANTOPRAZOLE 40 MG TABLET PO SCH (08:55)
[2019-09-02] MEDS: DOXYCYCLINE HYCLATE 100 MG CAPSULE PO SCH ×2 (08:55→21:25)
[2019-09-02] MEDS: DOCUSATE SODIUM 100 MG CAPSULE PO SCH ×2 (09:14→21:23)
[2019-09-02] MEDS: LABETALOL 200 MG TABLET PO SCH ×2 (09:15→21:25)
[2019-09-02] MEDS: PROMETHAZINE 25 MG TABLET PO PRN (11:15)
[2019-09-02] MEDS: PROMETHAZINE 25 MG/1 ML VIAL IM PRN (18:09)
[2019-09-02] MEDS: AMITRIPTYLINE 50 MG TABLET PO SCH (21:23)
[2019-09-02] MEDS: INSULIN GLARGINE 100 UNIT/ML SUBCUT SCH (21:24)
[2019-09-02] MEDS: ENOXAPARIN 30 MG/0.3 ML SYRINGE SUBCUT SCH (21:24)
[2019-09-02] MEDS: ZINC SULFATE 220 MG CAPSULE PO SCH (21:25)
[2019-09-02] MEDS: LORATADINE 10 MG TABLET PO SCH (22:05)
[2019-09-03 06:58] LABS: Basophils % 0.4 % (0.0-0.8); Eosinophils % 0.5 % (0.00-10.9); Hematocrit 30.9 VOL% (35.7-47.0); Hemoglobin 9.4 GM/DL (12.0-16.0); Immature Granulocytes % 1.6 %; Immature Granulocytes Absolute 0.09 #; Lymphocytes # 0.7 10*3/uL (1.4-4.0); Mean Corpuscular HGB Conc 30.4 GM/DL (32-36); Mean Platelet Volume 12.5 FL (9.6-12.0); Monocytes % 4.6 % (1.7-12.7); Neutrophils % 79.9 % (38.7-73.9); Platelet Count 201 T/CUMM (130-400); Red Blood Count 3.36 MC/CUMM (3.8-5.5); Red Cell Distribution Width 15.2 % (9.3-17.3); White Blood Count 5.7 T/CUMM (4-12)
[2019-09-03 07:28] LABS: Calcium 8.6 MG/DL (8.5-10.1); Osmolality,Calculated 295.8 MOS/KG (273-304)
[2019-09-03] MEDS: BENZONATATE 100 MG CAPSULE PO SCH ×3 (08:12→21:55)
[2019-09-03] MEDS: HYDROXYCHLOROQUINE 200 MG TABLET PO SCH (08:12)
[2019-09-03] MEDS: FERROUS SULFATE 325 MG TABLET PO SCH (08:12)
[2019-09-03] MEDS: GABAPENTIN 100 MG CAPSULE PO SCH ×2 (08:12→21:55)
[2019-09-03] MEDS: DOCUSATE SODIUM 100 MG CAPSULE PO SCH ×2 (08:12→22:28)
[2019-09-03] MEDS: LORATADINE 10 MG TABLET PO SCH ×2 (08:12→21:50)
[2019-09-03] MEDS: DOXYCYCLINE HYCLATE 100 MG CAPSULE PO SCH ×2 (08:12→23:50)
[2019-09-03] MEDS: LABETALOL 200 MG TABLET PO SCH ×2 (08:12→22:35)
[2019-09-03] MEDS: PANTOPRAZOLE 40 MG TABLET PO SCH (08:12)
[2019-09-03] MEDS: INSULIN LISPRO 100 UNIT/ML SUBCUT SCH ×4 (08:12→22:31)
[2019-09-03] MEDS: PROMETHAZINE 25 MG/1 ML VIAL IM PRN (08:15)
[2019-09-03] MEDS: PROMETHAZINE 25 MG TABLET PO PRN (10:27)
[2019-09-03] MEDS: AMITRIPTYLINE 50 MG TABLET PO SCH (21:55)
[2019-09-03] MEDS: DICYCLOMINE 20 MG TABLET PO PRN (22:25)
[2019-09-03] MEDS: INSULIN GLARGINE 100 UNIT/ML SUBCUT SCH (22:32)
[2019-09-03] MEDS: ENOXAPARIN 30 MG/0.3 ML SYRINGE SUBCUT SCH (22:33)
[2019-09-03] MEDS: guaiFENesin 200 MG/10 ML UDCUP PO PRN (23:50)
[2019-09-04 06:25] LABS: Calcium 8.4 MG/DL (8.5-10.1); Osmolality,Calculated 287.4 MOS/KG (273-304)
[2019-09-04] MEDS: BENZONATATE 100 MG CAPSULE PO SCH ×3 (07:47→22:34)
[2019-09-04] MEDS: FERROUS SULFATE 325 MG TABLET PO SCH (07:47)
[2019-09-04] MEDS: LABETALOL 200 MG TABLET PO SCH ×2 (07:47→22:34)
[2019-09-04] MEDS: LORATADINE 10 MG TABLET PO SCH ×2 (07:47→22:31)
[2019-09-04] MEDS: GABAPENTIN 100 MG CAPSULE PO SCH ×2 (07:47→22:33)
[2019-09-04] MEDS: PANTOPRAZOLE 40 MG TABLET PO SCH (07:47)
[2019-09-04] MEDS: DOXYCYCLINE HYCLATE 100 MG CAPSULE PO SCH ×2 (07:47→22:34)
[2019-09-04] MEDS: DICYCLOMINE 20 MG TABLET PO PRN ×2 (07:55→16:25)
[2019-09-04] MEDS: INSULIN LISPRO 100 UNIT/ML SUBCUT SCH ×4 (07:55→22:33)
[2019-09-04] MEDS: DOCUSATE SODIUM 100 MG CAPSULE PO SCH ×2 (08:33→22:32)
[2019-09-04] MEDS: guaiFENesin 200 MG/10 ML UDCUP PO PRN (16:25)
[2019-09-04] MEDS: ACETAMINOPHEN 325 MG TABLET PO PRN (17:16)
[2019-09-04] MEDS ORDERED: SODIUM CHLORIDE 0.9% 200 ML IV ONE (22:13)
[2019-09-04] MEDS: AMITRIPTYLINE 50 MG TABLET PO SCH (22:32)
[2019-09-04] MEDS: INSULIN GLARGINE 100 UNIT/ML SUBCUT SCH (22:33)
[2019-09-04] MEDS: ENOXAPARIN 30 MG/0.3 ML SYRINGE SUBCUT SCH (22:33)
[2019-09-05] MEDS: INSULIN LISPRO 100 UNIT/ML SUBCUT SCH ×4 (08:45→20:43)
[2019-09-05] MEDS: DOCUSATE SODIUM 100 MG CAPSULE PO SCH ×2 (09:22→21:12)
[2019-09-05] MEDS: FERROUS SULFATE 325 MG TABLET PO SCH (09:22)
[2019-09-05] MEDS: LORATADINE 10 MG TABLET PO SCH ×2 (09:22→21:13)
[2019-09-05] MEDS: GABAPENTIN 100 MG CAPSULE PO SCH ×2 (09:23→21:12)
[2019-09-05] MEDS: PANTOPRAZOLE 40 MG TABLET PO SCH (09:23)
[2019-09-05] MEDS: BENZONATATE 100 MG CAPSULE PO SCH ×3 (09:24→21:13)
[2019-09-05] MEDS: DOXYCYCLINE HYCLATE 100 MG CAPSULE PO SCH ×2 (09:24→21:12)
[2019-09-05] MEDS: LABETALOL 200 MG TABLET PO SCH ×2 (11:24→21:13)
[2019-09-05] MEDS: INSULIN GLARGINE 100 UNIT/ML SUBCUT SCH (20:43)
[2019-09-05] MEDS: ENOXAPARIN 30 MG/0.3 ML SYRINGE SUBCUT SCH (21:11)
[2019-09-05] MEDS: AMITRIPTYLINE 50 MG TABLET PO SCH (21:13)
[2019-09-06] MEDS: DOXYCYCLINE HYCLATE 100 MG CAPSULE PO SCH ×2 (08:41→21:36)
[2019-09-06] MEDS: LABETALOL 200 MG TABLET PO SCH ×2 (08:41→22:45)
[2019-09-06] MEDS: INSULIN LISPRO 100 UNIT/ML SUBCUT SCH ×4 (09:25→21:35)
[2019-09-06] MEDS: GABAPENTIN 100 MG CAPSULE PO SCH (09:43)
[2019-09-06] MEDS: LORATADINE 10 MG TABLET PO SCH ×2 (10:04→21:36)
[2019-09-06] MEDS: FERROUS SULFATE 325 MG TABLET PO SCH (10:05)
[2019-09-06] MEDS: DOCUSATE SODIUM 100 MG CAPSULE PO SCH ×2 (10:05→22:44)
[2019-09-06] MEDS ORDERED: PREGABALIN 25 MG CAPSULE PO ONE (15:00)
[2019-09-06] MEDS: PANTOPRAZOLE 40 MG TABLET PO SCH (17:05)
[2019-09-06] MEDS: BENZONATATE 100 MG CAPSULE PO SCH ×3 (17:06→21:36)
[2019-09-06] MEDS ORDERED: PHENOL 1.4% THROAT SPRAY 177 ML BOTTLE PO PRN (18:46)
[2019-09-06] MEDS ORDERED: BENZOCAINE/MENTHOL LOZENGE 18/BOX PO PRN (18:46)
[2019-09-06] MEDS: PREGABALIN 50 MG CAPSULE PO SCH (21:36)
[2019-09-06] MEDS: INSULIN GLARGINE 100 UNIT/ML SUBCUT SCH (21:36)
[2019-09-06] MEDS: AMITRIPTYLINE 50 MG TABLET PO SCH (21:36)
[2019-09-06] MEDS ORDERED: carvediloL 3.125 MG TABLET PO ONE (21:48)
[2019-09-06] MEDS: ENOXAPARIN 30 MG/0.3 ML SYRINGE SUBCUT SCH (22:44)
[2019-09-07 05:43] LABS: Basophils % 0.5 % (0.0-0.8); Eosinophils # 0.1 10*3/uL (0.0-0.87); Eosinophils % 2.3 % (0.00-10.9); Hematocrit 34.7 VOL% (35.7-47.0); Hemoglobin 10.7 GM/DL (12.0-16.0); Immature Granulocytes % 2.1 %; Immature Granulocytes Absolute 0.09 #; Lymphocytes # 1.3 10*3/uL (1.4-4.0); Lymphocytes % 29.5 % (21.3-54.2); Mean Corpuscular HGB Conc 30.8 GM/DL (32-36); Mean Corpuscular Volume 91.6 FL (87-102); Mean Platelet Volume 11.2 FL (9.6-12.0); Monocytes % 9.1 % (1.7-12.7); Neutrophils % 56.5 % (38.7-73.9); Platelet Count 294 T/CUMM (130-400); Red Blood Count 3.79 MC/CUMM (3.8-5.5); Red Cell Distribution Width 14.3 % (9.3-17.3); White Blood Count 4.3 T/CUMM (4-12)
[2019-09-07 06:04] LABS: Albumin 2.7 G/DL (3.4-5.0); Calcium 8.7 MG/DL (8.5-10.1); Osmolality,Calculated 285.1 MOS/KG (273-304); Total Protein 5.9 G/DL (6.4-8.3)
[2019-09-07 06:05] LABS: Band Neutrophils 1 % (0-10); Eosinophils 1 % (0-10); Lymphocytes 19 % (20-55); Segmented Neutrophils 66 % (50-85); Total Cells Counted 100
[2019-09-07 06:06] LABS: Hypochromasia 1+; Ovalocytes Slight; Platelet Estimate Adequate
[2019-09-07] MEDS: PREGABALIN 50 MG CAPSULE PO SCH ×2 (09:28→20:30)
[2019-09-07] MEDS: LORATADINE 10 MG TABLET PO SCH ×2 (09:28→20:30)
[2019-09-07] MEDS: carvediloL 3.125 MG TABLET PO SCH ×2 (09:28→16:12)
[2019-09-07] MEDS: DOCUSATE SODIUM 100 MG CAPSULE PO SCH ×2 (09:28→20:30)
[2019-09-07] MEDS: FERROUS SULFATE 325 MG TABLET PO SCH (09:28)
[2019-09-07] MEDS: BENZONATATE 100 MG CAPSULE PO SCH ×3 (09:28→20:30)
[2019-09-07] MEDS: DOXYCYCLINE HYCLATE 100 MG CAPSULE PO SCH ×2 (09:28→20:30)
[2019-09-07] MEDS: PANTOPRAZOLE 40 MG TABLET PO SCH (09:28)
[2019-09-07] MEDS: LABETALOL 200 MG TABLET PO SCH ×2 (09:59→20:30)
[2019-09-07] MEDS: INSULIN LISPRO 100 UNIT/ML SUBCUT SCH ×4 (10:20→20:42)
[2019-09-07] MEDS: ENOXAPARIN 30 MG/0.3 ML SYRINGE SUBCUT SCH (20:30)
[2019-09-07] MEDS: AMITRIPTYLINE 50 MG TABLET PO SCH (20:40)
[2019-09-07] MEDS: INSULIN GLARGINE 100 UNIT/ML SUBCUT SCH (22:30)
[2019-09-08 08:00] LABS: Basophils % 0.8 % (0.0-0.8); Eosinophils # 0.1 10*3/uL (0.0-0.87); Eosinophils % 3.2 % (0.00-10.9); Hematocrit 32.8 VOL% (35.7-47.0); Immature Granulocytes % 3.5 %; Immature Granulocytes Absolute 0.13 #; Lymphocytes # 1.1 10*3/uL (1.4-4.0); Mean Corpuscular HGB Conc 30.5 GM/DL (32-36); Mean Corpuscular Volume 92.1 FL (87-102); Monocytes % 12.5 % (1.7-12.7); Platelet Count 307 T/CUMM (130-400); Red Blood Count 3.56 MC/CUMM (3.8-5.5); Red Cell Distribution Width 14.2 % (9.3-17.3); White Blood Count 3.8 T/CUMM (4-12)
[2019-09-08 08:16] LABS: Calcium 8.5 MG/DL (8.5-10.1); Osmolality,Calculated 300.9 MOS/KG (273-304)
[2019-09-08 08:21] LABS: Eosinophils 3 % (0-10); Hypochromasia 1+; Lymphocytes 28 % (20-55); Platelet Estimate Adequate; Segmented Neutrophils 53 % (50-85); Total Cells Counted 100
[2019-09-08] MEDS: PANTOPRAZOLE 40 MG TABLET PO SCH (08:58)
[2019-09-08] MEDS: PREGABALIN 50 MG CAPSULE PO SCH (08:58)
[2019-09-08] MEDS: FERROUS SULFATE 325 MG TABLET PO SCH (08:58)
[2019-09-08] MEDS: DOXYCYCLINE HYCLATE 100 MG CAPSULE PO SCH (08:58)
[2019-09-08] MEDS: BENZONATATE 100 MG CAPSULE PO SCH ×2 (08:58→16:24)
[2019-09-08] MEDS: LORATADINE 10 MG TABLET PO SCH (08:58)
[2019-09-08] MEDS: carvediloL 3.125 MG TABLET PO SCH ×2 (08:58→18:34)
[2019-09-08] MEDS: LABETALOL 200 MG TABLET PO SCH (08:59)
[2019-09-08] MEDS: INSULIN LISPRO 100 UNIT/ML SUBCUT SCH ×3 (08:59→18:15)
[2019-09-08] MEDS: DOCUSATE SODIUM 100 MG CAPSULE PO SCH (08:59)
[2019-09-08 15:48] VITALS: BP 95/64
== END 2019-09-08 18:25 | disposition home or self-care (01) | DRG 177 ==
LOC: EDBD → EDUNIT# → N.ED 11:10 → N.EDINP 15:23 → N.2W 18:48
PROVIDERS: ADMIT Internal Medicine; ATTEND Internal Medicine

== ENCOUNTER 2019-09-22 09:58 | Inpatient (IN) ==
[2019-09-22] MEDS ORDERED: INSULIN REGULAR 100 UNIT/ML IV ONE (10:25)
[2019-09-22] MEDS ORDERED: SODIUM CHLORIDE 0.9% 500 ML IV STA (10:25)
[2019-09-22 11:33] LABS: Albumin 2.8 G/DL (3.4-5.0); Bilirubin,Total 1.1 MG/DL (0.2-1.0); Calcium 7.7 MG/DL (8.5-10.1); Osmolality,Calculated 291.4 MOS/KG (273-304); Total Protein 6.1 G/DL (6.4-8.3)
[2019-09-22 11:56] LABS: Basophils % 0.8 % (0.0-0.8); Eosinophils % 0.4 % (0.00-10.9); Hematocrit 23.4 VOL% (35.7-47.0); Immature Granulocytes % 2.8 %; Immature Granulocytes Absolute 0.14 #; Lymphocytes # 1.1 10*3/uL (1.4-4.0); Lymphocytes % 21.6 % (21.3-54.2); Mean Corpuscular HGB Conc 31.6 GM/DL (32-36); Mean Corpuscular Volume 89.3 FL (87-102); Monocytes % 21.6 % (1.7-12.7); Neutrophils % 52.8 % (38.7-73.9); Red Blood Count 2.62 MC/CUMM (3.8-5.5); Red Cell Distribution Width 15.3 % (9.3-17.3); White Blood Count 5.1 T/CUMM (4-12)
[2019-09-22 11:58] LABS: Hemoglobin 7.4 GM/DL (12.0-16.0); Platelet Count 54 T/CUMM (130-400)
[2019-09-22 12:21] LABS: Anisocytosis 2+; Band Neutrophils 5 % (0-10); Basophilic Stippling Slight; Lymphocytes 22 % (20-55); Platelet Estimate Decreased; Segmented Neutrophils 54 % (50-85); Total Cells Counted 100
[2019-09-22 12:22] LABS: Misc Morphology 2S
[2019-09-22] MEDS ORDERED: NALOXONE 0.4 MG/ML VIAL IV STA (12:31)
[2019-09-22] MEDS ORDERED: GLUCAGON 1 MG VIAL IM PRN (13:06)
[2019-09-22] MEDS ORDERED: ACETAMINOPHEN 325 MG TABLET PO PRN (13:06)
[2019-09-22] MEDS ORDERED: DEXTROSE 10% 250 ML BAG IV PRN (13:06)
[2019-09-22] MEDS ORDERED: ONDANSETRON 4 MG/2 ML VIAL IV PRN (13:06)
[2019-09-22 16:49] LABS: Apearance,Urine CLOUDY (Clear); Bilirubin,Urine Negative (Negative); Blood, Urine Small mg/dL (Negative); Glucose,Urine (UA) >=500 mg/dL (Negative); Hyaline Casts,Urine 6 /LPF (0-3); Ketones,Urine Negative (Negative); Nitrite,Urine Negative (Negative); Protein,Urine >=500 MG/DL; RBC,Urine 7 /HPF (0-4); Squamous Epithelial Cell,Urine Occasional /HPF (0-10); Urine Color Yellow (Yellow); Urine Urobilinogen < 2.0 EU/DL (0.2-1.0); WBC,Urine 13 /HPF (0-6)
[2019-09-22 16:50] LABS: Barbiturates Screen,Urine Negative (Negative); Benzodiazepines Screen,Urine Negative (Negative); Cannabinoid Screen,Urine Negative (Negative); Opiate Screen,Urine Negative (Negative); Phencyclidine Screen,Urine Negative (Negative)
[2019-09-22] MEDS ORDERED: EPOETIN ALFA-EPBX 10,000 UNIT/ML VIAL IV PRN (17:04)
[2019-09-22] MEDS ORDERED: DOCUSATE SODIUM 100 MG CAPSULE PO SCH (21:00)
[2019-09-22] MEDS ORDERED: SODIUM CHLORIDE 0.9% 1,000 ML IV PRN (21:34)
[2019-09-22] MEDS ORDERED: BISACODYL 5 MG TABLET PO PRN (21:47)
[2019-09-22] MEDS ORDERED: hydrALAZINE 25 MG TABLET PO ONE (21:52)
[2019-09-22] MEDS: PREGABALIN 50 MG CAPSULE PO SCH (22:20)
[2019-09-23 06:17] LABS: Basophils # 0.1 10*3/uL (0.0-0.2); Basophils % 1.1 % (0.0-0.8); Eosinophils % 0.6 % (0.00-10.9); Hematocrit 24.8 VOL% (35.7-47.0); Hemoglobin 7.8 GM/DL (12.0-16.0); Immature Granulocytes % 2.3 %; Immature Granulocytes Absolute 0.12 #; Lymphocytes # 1.7 10*3/uL (1.4-4.0); Lymphocytes % 31.5 % (21.3-54.2); Mean Corpuscular HGB Conc 31.5 GM/DL (32-36); Mean Corpuscular Volume 89.9 FL (87-102); Monocytes % 15.6 % (1.7-12.7); Neutrophils % 48.9 % (38.7-73.9); Platelet Count 63 T/CUMM (130-400); Red Blood Count 2.76 MC/CUMM (3.8-5.5); Red Cell Distribution Width 15.6 % (9.3-17.3); White Blood Count 5.3 T/CUMM (4-12)
[2019-09-23 06:38] LABS: Calcium 8.2 MG/DL (8.5-10.1); Osmolality,Calculated 276.1 MOS/KG (273-304)
[2019-09-23 06:42] LABS: Albumin 2.7 G/DL (3.4-5.0); Bilirubin,Direct 0.43 MG/DL (0.0-0.20); Bilirubin,Indirect 0.7 MG/DL (0.0-1.0); Bilirubin,Total 1.1 MG/DL (0.2-1.0); Total Protein 5.6 G/DL (6.4-8.3)
[2019-09-23] MEDS ORDERED: INSULIN LISPRO 100 UNIT/ML SUBCUT SCH (08:30)
[2019-09-23] MEDS ORDERED: PANTOPRAZOLE 40 MG TABLET PO SCH (09:00)
[2019-09-23] MEDS: PREGABALIN 50 MG CAPSULE PO SCH ×2 (09:03→21:56)
[2019-09-23] MEDS: LORATADINE 10 MG TABLET PO SCH ×2 (09:04→21:56)
[2019-09-23] MEDS: DOCUSATE SODIUM 100 MG CAPSULE PO SCH ×2 (09:04→21:57)
[2019-09-23] MEDS: FAMOTIDINE 20 MG TABLET PO SCH (09:05)
[2019-09-23] MEDS: LABETALOL 200 MG TABLET PO SCH ×2 (09:05→21:55)
[2019-09-23 09:47] LABS: Atypical Lymphocytes Few; Band Neutrophils 5 % (0-10); Hypochromasia 1+; Lymphocytes 39 % (20-55); Platelet Estimate Decreased; Polychromasia Slight; Segmented Neutrophils 42 % (50-85); Total Cells Counted 100
[2019-09-23 09:48] LABS: Ovalocytes Few; Tear Drop Cells Slight
[2019-09-23] MEDS ORDERED: HEPARIN 10,000 UNIT/10 ML VIAL IV SCH (16:45)
[2019-09-23] MEDS ORDERED: PREGABALIN 75 MG CAPSULE PO SCH (22:24)
[2019-09-24 06:21] LABS: Basophils # 0.1 10*3/uL (0.0-0.2); Eosinophils % 0.4 % (0.00-10.9); Hematocrit 24.9 VOL% (35.7-47.0); Hemoglobin 7.7 GM/DL (12.0-16.0); Immature Granulocytes % 1.6 %; Immature Granulocytes Absolute 0.08 #; Lymphocytes # 1.7 10*3/uL (1.4-4.0); Lymphocytes % 33.6 % (21.3-54.2); Mean Corpuscular HGB Conc 30.9 GM/DL (32-36); Mean Corpuscular Volume 90.9 FL (87-102); Mean Platelet Volume 13.1 FL (9.6-12.0); Monocytes % 18.9 % (1.7-12.7); Neutrophils % 44.5 % (38.7-73.9); Platelet Count 99 T/CUMM (130-400); Red Blood Count 2.74 MC/CUMM (3.8-5.5); Red Cell Distribution Width 15.9 % (9.3-17.3); White Blood Count 5.1 T/CUMM (4-12)
[2019-09-24 06:54] LABS: Anisocytosis 1+; Band Neutrophils 1 % (0-10); Lymphocytes 44 % (20-55); Metamyelocytes 1 %; Segmented Neutrophils 36 % (50-85); Total Cells Counted 100
[2019-09-24 06:55] LABS: Platelet Estimate Decreased; Tear Drop Cells 1+
[2019-09-24 06:56] LABS: Albumin 2.6 G/DL (3.4-5.0); Bilirubin,Total 1.5 MG/DL (0.2-1.0); Calcium 8.3 MG/DL (8.5-10.1); Osmolality,Calculated 268.9 MOS/KG (273-304); Total Protein 5.7 G/DL (6.4-8.3)
[2019-09-24] MEDS: DOCUSATE SODIUM 100 MG CAPSULE PO SCH (08:30)
[2019-09-24] MEDS: LORATADINE 10 MG TABLET PO SCH (08:30)
[2019-09-24] MEDS: LABETALOL 200 MG TABLET PO SCH (08:30)
[2019-09-24] MEDS: FAMOTIDINE 20 MG TABLET PO SCH (08:30)
[2019-09-24 11:55] VITALS: BP 156/107
== END 2019-09-24 15:00 | disposition home health service (06) | DRG 811 ==
LOC: N.ED 09:58 → N.EDINP 13:05 → N.2E 14:31
PROVIDERS: ADMIT Internal Medicine; ATTEND Internal Medicine

== ENCOUNTER 2019-10-18 00:57 | Inpatient (IN) ==
[2019-10-18] MEDS ORDERED: NITROGLYCERIN 2% OINT 1 INCH/GM PACK TOP STA (01:23)
[2019-10-18] MEDS ORDERED: methylPREDNISolone SOD SUC 125 MG/2 ML VIAL IV STA (01:23)
[2019-10-18] MEDS ORDERED: ACETAMINOPHEN 500 MG TABLET PO STA (01:23)
[2019-10-18] MEDS ORDERED: ONDANSETRON 4 MG/2 ML VIAL IV STA (01:23)
[2019-10-18] MEDS ORDERED: ALBUTEROL/IPRATROPIUM 3 ML NEB RESP TX STA (01:23)
[2019-10-18] MEDS ORDERED: cefTRIAXone 1,000 MG in SODIUM CHLORIDE 0.9% 100 ML IV STA (01:23)
[2019-10-18] MEDS ORDERED: LABETALOL 20 MG/4 ML SYRINGE IV STA (01:23)
[2019-10-18 01:30] LABS: Basophils % 0.5 % (0.0-0.8); Eosinophils # 0.2 10*3/uL (0.0-0.87); Eosinophils % 3.1 % (0.00-10.9); Hematocrit 24.9 VOL% (35.7-47.0); Hemoglobin 7.6 GM/DL (12.0-16.0); Immature Granulocytes % 0.9 %; Immature Granulocytes Absolute 0.05 #; Lymphocytes # 1.1 10*3/uL (1.4-4.0); Lymphocytes % 18.8 % (21.3-54.2); Mean Corpuscular HGB Conc 30.5 GM/DL (32-36); Mean Platelet Volume 12.9 FL (9.6-12.0); Monocytes % 9.6 % (1.7-12.7); Neutrophils % 67.1 % (38.7-73.9); Platelet Count 129 T/CUMM (130-400); Red Blood Count 2.65 MC/CUMM (3.8-5.5); White Blood Count 5.8 T/CUMM (4-12)
[2019-10-18] MEDS ORDERED: VANCOMYCIN INJ 1,000 MG in SODIUM CHLORIDE 0.9% 250 ML IV STA (01:34)
[2019-10-18 01:35] LABS: INR 1.1; PT Patient Result 11.9 SECS (9.8-11.9)
[2019-10-18 01:49] LABS: Albumin 2.7 G/DL (3.4-5.0); Bilirubin,Total 1.3 MG/DL (0.2-1.0); CKMB % 1.5 %; Calcium 8.5 MG/DL (8.5-10.1); Osmolality,Calculated 292.1 MOS/KG (273-304); Total Protein 6.1 G/DL (6.4-8.3)
[2019-10-18 01:52] LABS: Troponin I 0.23 NG/ML (0.00-0.045)
[2019-10-18 03:20] LABS: Barbiturates Screen,Urine Negative (Negative); Benzodiazepines Screen,Urine Negative (Negative); Cannabinoid Screen,Urine Negative (Negative); Opiate Screen,Urine Negative (Negative); Phencyclidine Screen,Urine Negative (Negative)
[2019-10-18] MEDS ORDERED: fentaNYL 100 MCG/2 ML VIAL ONE (03:24)
[2019-10-18 03:25] LABS: Apearance,Urine CLOUDY (Clear); Bilirubin,Urine Negative (Negative); Blood, Urine Negative (Negative); Glucose,Urine (UA) >=500 mg/dL (Negative); Granular Casts,Urine 1 /LPF (0-1); Hyaline Casts,Urine 25 /LPF (0-3); Ketones,Urine 5 mg/dL (Negative); Mucus,Urine Occasional /LPF (Occasional); Nitrite,Urine Negative (Negative); Protein,Urine >=500 MG/DL; RBC,Urine 6 /HPF (0-4); Squamous Epithelial Cell,Urine Moderate /HPF (0-10); Urine Color Amber (Yellow); Urine Specific Gravity 1.026 (1.001-1.035); Urine Urobilinogen < 2.0 EU/DL (0.2-1.0); WBC,Urine 8 /HPF (0-6)
[2019-10-18] MEDS ORDERED: hydrALAZINE 20 MG/1 ML VIAL IV STA (03:32)
[2019-10-18] MEDS ORDERED: fentaNYL 100 MCG/2 ML VIAL IV STA (03:32)
[2019-10-18] MEDS ORDERED: ACETAMINOPHEN 325 MG TABLET PO PRN (03:43)
[2019-10-18 06:37] LABS: Albumin 2.5 G/DL (3.4-5.0); Bilirubin,Total 1.4 MG/DL (0.2-1.0); Calcium 8.1 MG/DL (8.5-10.1); Osmolality,Calculated 294.7 MOS/KG (273-304); Total Protein 5.5 G/DL (6.4-8.3)
[2019-10-18 07:11] LABS: Basophils % 0.4 % (0.0-0.8); Eosinophils % 0.6 % (0.00-10.9); Hematocrit 25.1 VOL% (35.7-47.0); Hemoglobin 7.4 GM/DL (12.0-16.0); Immature Granulocytes % 2.1 %; Immature Granulocytes Absolute 0.11 #; Lymphocytes # 0.5 10*3/uL (1.4-4.0); Lymphocytes % 9.5 % (21.3-54.2); Mean Corpuscular HGB Conc 29.5 GM/DL (32-36); Mean Corpuscular Volume 94.4 FL (87-102); Mean Platelet Volume 12.6 FL (9.6-12.0); Monocytes % 4.4 % (1.7-12.7); Platelet Count 110 T/CUMM (130-400); Red Blood Count 2.66 MC/CUMM (3.8-5.5); Red Cell Distribution Width 15.1 % (9.3-17.3); White Blood Count 5.3 T/CUMM (4-12)
[2019-10-18] MEDS ORDERED: PANTOPRAZOLE 40 MG VIAL IV SCH (09:00)
[2019-10-18] MEDS ORDERED: PANTOPRAZOLE 40 MG VIAL IV ONE (10:00)
[2019-10-18] MEDS ORDERED: LABETALOL 200 MG TABLET PO ONE (13:13)
[2019-10-18] MEDS ORDERED: VANCOMYCIN INJ 750 MG in SODIUM CHLORIDE 0.9% 250 ML IV PRN (18:00)
[2019-10-18] MEDS: ALBUTEROL/IPRATROPIUM 3 ML NEB RESP TX SCH (19:00)
[2019-10-18] MEDS ORDERED: HEPARIN 10,000 UNIT/10 ML VIAL IV SCH (19:11)
[2019-10-18] MEDS ORDERED: ONDANSETRON 4 MG TABLET PO PRN (19:11)
[2019-10-18] MEDS ORDERED: DEXTROSE 50% 25 GM/50 ML VIAL IV PRN (19:14)
[2019-10-18] MEDS ORDERED: GLUCAGON 1 MG VIAL IM PRN (19:14)
[2019-10-18] MEDS ORDERED: SEVELAMER CARBONATE 800 MG TABLET PO SCH (19:30)
[2019-10-18] MEDS: FAMOTIDINE 20 MG TABLET PO SCH (20:50)
[2019-10-18] MEDS: LABETALOL 200 MG TABLET PO SCH (20:51)
[2019-10-18] MEDS: PREGABALIN 75 MG CAPSULE PO SCH (20:51)
[2019-10-18] MEDS: metOLazone 5 MG TABLET PO SCH (20:51)
[2019-10-18] MEDS: FERROUS SULFATE 325 MG TABLET PO SCH (20:51)
[2019-10-18] MEDS: AMITRIPTYLINE 50 MG TABLET PO SCH (20:51)
[2019-10-18] MEDS: INSULIN GLARGINE 100 UNIT/ML SUBCUT SCH (20:53)
[2019-10-18] MEDS: INSULIN REGULAR 100 UNIT/ML SUBCUT SCH (20:54)
[2019-10-18] MEDS ORDERED: LABETALOL 200 MG TABLET PO SCH (21:00)
[2019-10-19] MEDS: ALBUTEROL/IPRATROPIUM 3 ML NEB RESP TX SCH ×4 (00:10→19:40)
[2019-10-19] MEDS: cefTRIAXone 1,000 MG in SYRINGE 1 EACH IV SCH (04:11)
[2019-10-19 05:57] LABS: Basophils % 0.6 % (0.0-0.8); Eosinophils # 0.2 10*3/uL (0.0-0.87); Eosinophils % 3.8 % (0.00-10.9); Hematocrit 22.3 VOL% (35.7-47.0); Hemoglobin 6.9 GM/DL (12.0-16.0); Immature Granulocytes Absolute 0.05 #; Lymphocytes # 1.2 10*3/uL (1.4-4.0); Lymphocytes % 25.5 % (21.3-54.2); Mean Corpuscular HGB Conc 30.9 GM/DL (32-36); Mean Corpuscular Volume 92.1 FL (87-102); Mean Platelet Volume 12.3 FL (9.6-12.0); Monocytes % 12.3 % (1.7-12.7); Neutrophils % 56.8 % (38.7-73.9); Platelet Count 117 T/CUMM (130-400); Red Blood Count 2.42 MC/CUMM (3.8-5.5); Red Cell Distribution Width 14.8 % (9.3-17.3); White Blood Count 4.8 T/CUMM (4-12)
[2019-10-19 06:19] LABS: Albumin 2.1 G/DL (3.4-5.0); Bilirubin,Total 0.9 MG/DL (0.2-1.0); Calcium 8.1 MG/DL (8.5-10.1)
[2019-10-19 08:39] LABS: Hematocrit 23.4 VOL% (35.7-47.0); Hemoglobin 7.2 GM/DL (12.0-16.0)
[2019-10-19] MEDS: INSULIN REGULAR 100 UNIT/ML SUBCUT SCH ×4 (09:24→20:29)
[2019-10-19] MEDS: LABETALOL 200 MG TABLET PO SCH ×2 (09:25→20:29)
[2019-10-19] MEDS: PREGABALIN 75 MG CAPSULE PO SCH ×2 (09:25→20:29)
[2019-10-19] MEDS: metOLazone 5 MG TABLET PO SCH ×2 (09:25→20:28)
[2019-10-19] MEDS: SEVELAMER CARBONATE 800 MG TABLET PO SCH ×3 (09:32→17:07)
[2019-10-19] MEDS: AMITRIPTYLINE 50 MG TABLET PO SCH (20:28)
[2019-10-19] MEDS: FERROUS SULFATE 325 MG TABLET PO SCH (20:28)
[2019-10-19] MEDS: INSULIN GLARGINE 100 UNIT/ML SUBCUT SCH (20:29)
[2019-10-19] MEDS: FAMOTIDINE 20 MG TABLET PO SCH (20:29)
[2019-10-19] MEDS: ONDANSETRON 4 MG/2 ML VIAL IV PRN (21:57)
[2019-10-19] MEDS ORDERED: SODIUM CHLORIDE 0.9% 1,000 ML IV PRN (23:00)
[2019-10-20] MEDS: ALBUTEROL/IPRATROPIUM 3 ML NEB RESP TX SCH ×4 (01:15→19:09)
[2019-10-20] MEDS: cefTRIAXone 1,000 MG in SYRINGE 1 EACH IV SCH (04:45)
[2019-10-20] MEDS: ONDANSETRON 4 MG/2 ML VIAL IV PRN (04:45)
[2019-10-20 05:54] LABS: Basophils % 0.8 % (0.0-0.8); Eosinophils # 0.2 10*3/uL (0.0-0.87); Hematocrit 23.8 VOL% (35.7-47.0); Immature Granulocytes % 1.2 %; Immature Granulocytes Absolute 0.06 #; Lymphocytes # 0.9 10*3/uL (1.4-4.0); Lymphocytes % 19.1 % (21.3-54.2); Mean Corpuscular HGB Conc 29.4 GM/DL (32-36); Mean Corpuscular Volume 94.1 FL (87-102); Mean Platelet Volume 11.9 FL (9.6-12.0); Monocytes % 12.6 % (1.7-12.7); Neutrophils % 63.3 % (38.7-73.9); Platelet Count 131 T/CUMM (130-400); Red Blood Count 2.53 MC/CUMM (3.8-5.5); Red Cell Distribution Width 15.2 % (9.3-17.3); White Blood Count 4.9 T/CUMM (4-12)
[2019-10-20 06:10] LABS: Albumin 2.3 G/DL (3.4-5.0); Bilirubin,Total 0.6 MG/DL (0.2-1.0); Calcium 7.8 MG/DL (8.5-10.1); Osmolality,Calculated 281.4 MOS/KG (273-304); Total Protein 5.5 G/DL (6.4-8.3)
[2019-10-20] MEDS: SEVELAMER CARBONATE 800 MG TABLET PO SCH ×3 (09:17→16:49)
[2019-10-20] MEDS: metOLazone 5 MG TABLET PO SCH ×2 (09:17→20:42)
[2019-10-20] MEDS: PREGABALIN 75 MG CAPSULE PO SCH ×2 (09:18→20:43)
[2019-10-20] MEDS: LABETALOL 200 MG TABLET PO SCH ×2 (09:18→20:43)
[2019-10-20] MEDS: INSULIN REGULAR 100 UNIT/ML SUBCUT SCH (09:24)
[2019-10-20] MEDS: INSULIN LISPRO 100 UNIT/ML SUBCUT PRN (10:55)
[2019-10-20] MEDS ORDERED: MIRCERA SUBCUT SCH (11:00)
[2019-10-20] MEDS ORDERED: EPOETIN ALFA-EPBX 10,000 UNIT/ML VIAL IV PRN (12:00)
[2019-10-20] MEDS ORDERED: IRON SUCROSE 100 MG/5 ML VIAL IV SCH (12:00)
[2019-10-20] MEDS ORDERED: VANCOMYCIN INJ 750 MG in SODIUM CHLORIDE 0.9% 250 ML IV ONE (12:00)
[2019-10-20] MEDS ORDERED: SODIUM CHLORIDE 0.9% 1,000 ML IV PRN (12:53)
[2019-10-20] MEDS: AMITRIPTYLINE 50 MG TABLET PO SCH (20:43)
[2019-10-20] MEDS: FAMOTIDINE 20 MG TABLET PO SCH (20:43)
[2019-10-20] MEDS: FERROUS SULFATE 325 MG TABLET PO SCH (20:43)
[2019-10-21] MEDS: ALBUTEROL/IPRATROPIUM 3 ML NEB RESP TX SCH ×4 (00:50→19:57)
[2019-10-21] MEDS: cefTRIAXone 1,000 MG in SYRINGE 1 EACH IV SCH (05:05)
[2019-10-21 06:07] LABS: Calcium 8.2 MG/DL (8.5-10.1); Osmolality,Calculated 291.2 MOS/KG (273-304)
[2019-10-21] MEDS: LABETALOL 200 MG TABLET PO SCH ×3 (07:50→20:26)
[2019-10-21] MEDS: PREGABALIN 75 MG CAPSULE PO SCH ×3 (07:50→20:26)
[2019-10-21] MEDS: SEVELAMER CARBONATE 800 MG TABLET PO SCH ×3 (07:51→17:21)
[2019-10-21] MEDS: metOLazone 5 MG TABLET PO SCH ×2 (08:17→20:25)
[2019-10-21 13:12] LABS: Basophils # 0.1 10*3/uL (0.0-0.2); Eosinophils # 0.2 10*3/uL (0.0-0.87); Eosinophils % 4.7 % (0.00-10.9); Hematocrit 29.6 VOL% (35.7-47.0); Hemoglobin 8.9 GM/DL (12.0-16.0); Immature Granulocytes % 2.8 %; Immature Granulocytes Absolute 0.14 #; Lymphocytes # 1.1 10*3/uL (1.4-4.0); Lymphocytes % 20.8 % (21.3-54.2); Mean Corpuscular HGB Conc 30.1 GM/DL (32-36); Mean Corpuscular Volume 94.6 FL (87-102); Mean Platelet Volume 12.1 FL (9.6-12.0); Neutrophils % 57.7 % (38.7-73.9); Platelet Count 142 T/CUMM (130-400); Red Blood Count 3.13 MC/CUMM (3.8-5.5); White Blood Count 5.1 T/CUMM (4-12)
[2019-10-21] MEDS ORDERED: VANCOMYCIN INJ 750 MG in SODIUM CHLORIDE 0.9% 250 ML IV ONE (17:00)
[2019-10-21] MEDS: INSULIN LISPRO 100 UNIT/ML SUBCUT PRN ×2 (20:14→21:42)
[2019-10-21] MEDS: FERROUS SULFATE 325 MG TABLET PO SCH (20:26)
[2019-10-21] MEDS: AMITRIPTYLINE 50 MG TABLET PO SCH (20:26)
[2019-10-21] MEDS: FAMOTIDINE 20 MG TABLET PO SCH (20:26)
[2019-10-22] MEDS: ALBUTEROL/IPRATROPIUM 3 ML NEB RESP TX SCH ×3 (02:06→13:29)
[2019-10-22] MEDS: cefTRIAXone 1,000 MG in SYRINGE 1 EACH IV SCH (03:55)
[2019-10-22 05:50] LABS: Basophils # 0.1 10*3/uL (0.0-0.2); Basophils % 1.2 % (0.0-0.8); Eosinophils # 0.2 10*3/uL (0.0-0.87); Eosinophils % 3.5 % (0.00-10.9); Hemoglobin 9.2 GM/DL (12.0-16.0); Immature Granulocytes % 2.1 %; Immature Granulocytes Absolute 0.14 #; Lymphocytes # 1.4 10*3/uL (1.4-4.0); Lymphocytes % 20.4 % (21.3-54.2); Mean Corpuscular HGB Conc 30.7 GM/DL (32-36); Mean Corpuscular Volume 91.5 FL (87-102); Monocytes % 11.6 % (1.7-12.7); Neutrophils % 61.2 % (38.7-73.9); Platelet Count 146 T/CUMM (130-400); Red Blood Count 3.28 MC/CUMM (3.8-5.5); Red Cell Distribution Width 15.4 % (9.3-17.3); White Blood Count 6.6 T/CUMM (4-12)
[2019-10-22 06:14] LABS: Albumin 2.3 G/DL (3.4-5.0); Bilirubin,Total 0.6 MG/DL (0.2-1.0); Calcium 8.3 MG/DL (8.5-10.1); Osmolality,Calculated 275.1 MOS/KG (273-304); Total Protein 5.4 G/DL (6.4-8.3)
[2019-10-22] MEDS: LABETALOL 200 MG TABLET PO SCH (08:58)
[2019-10-22] MEDS: SEVELAMER CARBONATE 800 MG TABLET PO SCH ×2 (08:58→12:00)
[2019-10-22] MEDS: PREGABALIN 75 MG CAPSULE PO SCH (08:58)
[2019-10-22] MEDS: metOLazone 5 MG TABLET PO SCH (08:58)
[2019-10-22] MEDS ORDERED: CEFDINIR 300 MG CAPSULE PO SCH (12:00)
[2019-10-22 12:26] VITALS: BP 140/97
== END 2019-10-22 16:55 | disposition home or self-care (01) | DRG 291 ==
LOC: EDUNIT# → EDBD → N.ED 00:57 → N.EDINP 03:42 → N.TELES 13:26
PROVIDERS: ADMIT Internal Medicine; ATTEND Internal Medicine